=== PATIENT | female | born 2000 | race Caucasian/White ===

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

== ENCOUNTER 2022-01-02 18:58 | Outpatient (CLI) | payer MEDICAID, SELFPAY ==
[2022-01-02 18:05] VITALS: BP 111/52; PULSE 93; TEMP 36.4
--- NOTE | 2022-01-02 21:04 | W.OBNST ---
Date of service: 01/02/22 Time of Service: 19:30 NST Evaluation Reason for NST Reasons for Nonstress Test: OTHER, SEE COMMENT Reason for NST Other: nausea, blurred vision L eye Gestational Age Gestational Age in Weeks and Days: 33 Weeks and 3Days Test and Monitor Explained Test/Monitor Explained: Patient Verbalized Understanding Vital Signs Blood Pressure: 111/52 Pulse: 93 Temperature: 97.5 F Urine Results Urine Protein: Negative Urine Ketones: Positive Urine Glucose: Negative Urine Blood: Negative NST Information Date on Monitor: 01/02/22 Time on Monitor: 17:46 Date off Monitor: 01/02/22 Time off Monitor: 18:50 Total Time on Monitor: 64 NST Interventions: PO Hydration and Notify Provider NST Evaluation Patient States Movement: Present FHR Baseline: 120 Variability: Moderate 6-25 bpm Accelerations: 15x15 Decelerations: None NST Results: Reactive Note NST Note Note: NST is reactive and reassuring. Patient was encouraged by nursing to increase PO hydration and eat small frequent meals. Will keep next office appointment. NST Reviewed and Verified by: Laura Obando
[2022-01-02 21:05] VITALS: BP 111/52; PULSE 93; TEMP 36.4
== END 2022-01-02 19:26 | disposition home or self-care (01) ==
LOC: BCD 18:58 → OBS 19:24
PROVIDERS: PCP Pediatrics; Visit Provider Advanced Practice Midwife
DX: O99.893 Other specified diseases and conditions complicating puerperium (principal); R11.0 Nausea; H53.8 Other visual disturbances; Z3A.33 33 weeks gestation of pregnancy
CPT/HCPCS: 59025

== ENCOUNTER 2022-01-02 20:30 | Outpatient (CLI) | payer MEDICAID, SELFPAY ==
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
[2022-01-02] MEDS: Lactated Ringers 1,000 ML 1000 ML IV (21:30)
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
== END 2022-01-02 22:40 | disposition home or self-care (01) ==
LOC: BCD 20:35 → OBS 20:59
PROVIDERS: PCP Pediatrics; Visit Provider Advanced Practice Midwife
DX: O47.02 False labor before 37 completed weeks of gestation, second trimester (principal)
CPT/HCPCS: 96365

== ENCOUNTER 2022-01-07 13:07 | Outpatient (CLI) | payer MEDICAID, SELFPAY | END 2022-01-07 13:08 | disposition home or self-care (01) | PROVIDERS: PCP Pediatrics; Visit Provider Advanced Practice Midwife ==

== ENCOUNTER 2022-01-08 15:35 | Outpatient (CLI) | payer MEDICAID, SELFPAY ==
[2022-01-08 16:06] VITALS: BP 103/51; PULSE 90; TEMP 36.6
[2022-01-08 16:22] VITALS: BP 103/51; PULSE 90
--- NOTE | 2022-01-08 17:17 | PDOC.NST_ITS ---
Date of service: 01/08/22 Time of Service: 17:17 NST Evaluation Reason for NST Reasons for Nonstress Test: OTHER, SEE COMMENT Reason for NST Other: Fell on 01/06/22; having pain at umbilicus Gestational Age Gestational Age in Weeks and Days: 34 Weeks and 4Days Test and Monitor Explained Test/Monitor Explained: Test Explained and Monitor Explained Vital Signs Blood Pressure: 103/51 Pulse: 90 Temperature: 97.9 F Urine Results Urine Protein: Positive Urine Ketones: Negative Urine Glucose: Negative Urine Blood: Negative NST Information Date on Monitor: 01/08/22 Time on Monitor: 16:03 Date off Monitor: 01/08/22 Time off Monitor: 16:40 Total Time on Monitor: 37 NST Interventions: PO Hydration NST Evaluation Patient States Movement: Present FHR Baseline: 135 Variability: Moderate 6-25 bpm Accelerations: 15x15 Decelerations: None NST Results: Reactive Note NST Note Note: Nazanin called and reported christa-umbilical pain. She also rep[orted that she fell this morning and landed on her hip. The christa-umbilical area has been hurting since the fall. reactive NST. Mild uterine irritability noted which is unrelated to the christa-umbilical discomfort. The umbilical area is sensitive to light touch and Nazanin describes it as a tearing sensation. We discussed the separation of the diastasis rectus and an abdominal support belt was recommended. An abdominal binder was provided today and Nazanin said that her umbilicus felt better with the binder on. i also suggested ice and rest PRN at home. She will follow up at [facility]. NST Reviewed and Verified by: Laura Howell
[2022-01-08 17:21] VITALS: BP 103/51; PULSE 90; TEMP 36.6
== END 2022-01-08 17:05 | disposition home or self-care (01) ==
LOC: BCD 15:36 → OBS 16:03
PROVIDERS: PCP Pediatrics; Visit Provider Advanced Practice Midwife
DX: O26.893 Other specified pregnancy related conditions, third trimester (principal); R10.33 Periumbilical pain; Z91.81 History of falling
CPT/HCPCS: 59025

== ENCOUNTER 2022-01-15 17:57 | Outpatient (CLI) | payer MEDICAID, SELFPAY ==
[2022-01-15 18:14] VITALS: BP 117/59; PULSE 81; TEMP 36.5
[2022-01-15 18:27] VITALS: BP 117/59; PULSE 81
--- NOTE | 2022-01-15 18:58 | W.OBNST ---
Date of service: 01/15/22 Time of Service: 18:58 NST Evaluation Reason for NST Reasons for Nonstress Test: OTHER, SEE COMMENT Reason for NST Other: ? Rupture of Membranes Gestational Age Gestational Age in Weeks and Days: 35 Weeks and 2Days Test and Monitor Explained Test/Monitor Explained: Test Explained and Monitor Explained Vital Signs Blood Pressure: 117/59 Pulse: 81 Temperature: 97.7 F Urine Results Urine Protein: Negative Urine Ketones: Negative Urine Glucose: Negative Urine Blood: Negative NST Information Date on Monitor: 01/15/22 Time on Monitor: 18:13 Date off Monitor: 01/15/22 Time off Monitor: 19:15 Total Time on Monitor: 62 NST Interventions: PO Hydration Contraction Frequency: irreg, infrequent NST Evaluation Patient States Movement: Present FHR Baseline: 140 Variability: Moderate 6-25 bpm Accelerations: 15x15 Decelerations: None NST Results: Reactive Note NST Note Note: cvx closed, intact membranes, UA neg NST Reviewed and Verified by: Mitzi Raya
[2022-01-15 19:00] VITALS: BP 117/59; PULSE 81; TEMP 36.5
[2022-01-15 19:05] LABS: ROM Plus Negative
== END 2022-01-15 19:15 | disposition home or self-care (01) ==
LOC: BCD 18:03 → OBS 18:09
PROVIDERS: PCP Pediatrics; Visit Provider Advanced Practice Midwife
DX: O26.893 Other specified pregnancy related conditions, third trimester (principal); Z3A.35 35 weeks gestation of pregnancy
CPT/HCPCS: 59025; 84112

== ENCOUNTER 2022-01-20 18:43 | Outpatient (REF) | payer MEDICAID, SELFPAY ==
[2022-01-20 19:20] LABS: *AMPHETAMINES SCREEN URINE Negative (Negative); *BARBITURATES SCREEN URINE Negative (Negative); *BENZODIAZEPINES SCREEN URINE Negative (Negative); Cannabinoids THC Negative (Negative); Cocaine Screen,Urine Negative (Negative); METHADONE URINE SCREEN Negative (Negative); OPIATES URINE SCREEN Negative (Negative)
[2022-01-20 19:22] LABS: Tricyclic Antidepressants Negative (Negative)
[2022-01-27 12:32] LABS: Buprenorphine Negative ng/mL (Cutoff: 5.0)
== END 2022-01-20 18:44 | disposition home or self-care (01) ==
LOC: LBN 18:43
PROVIDERS: PCP Pediatrics; Visit Provider Advanced Practice Midwife
DX: Z34.93 Encounter for supervision of normal pregnancy, unspecified, third trimester (principal)
CPT/HCPCS: 80307; 80348; 87081

== ENCOUNTER 2022-01-23 19:26 | Outpatient (CLI) | payer MEDICAID, SELFPAY ==
[2022-01-23 19:39] VITALS: BP 121/65; PULSE 85; TEMP 36.5
[2022-01-23 19:45] VITALS: BP 121/65; PULSE 85
[2022-01-23 20:01] VITALS: BP 121/65; PULSE 85
--- NOTE | 2022-01-24 07:00 | W.OBNST ---
Date of service: 01/23/22 Time of Service: 21:00 NST Evaluation Reason for NST Reasons for Nonstress Test: OTHER, SEE COMMENT Reason for NST Other: headache and blurry vison Gestational Age Gestational Age in Weeks and Days: 36 Weeks and 3Days Test and Monitor Explained Test/Monitor Explained: Test Explained, Monitor Explained and Patient Verbalized Understanding Vital Signs Blood Pressure: 121/65 Pulse: 85 Temperature: 97.7 F Urine Results Urine Protein: Negative Urine Ketones: Positive Urine Glucose: Negative Urine Blood: Negative NST Information Date on Monitor: 01/23/22 Time on Monitor: 19:33 Date off Monitor: 01/23/22 Time off Monitor: 20:05 Total Time on Monitor: 32 NST Interventions: None NST Evaluation Patient States Movement: Present FHR Baseline: 120 Variability: Moderate 6-25 bpm Accelerations: 15x15 and Prolonged Decelerations: None NST Results: Reactive Note NST Note NST Reviewed and Verified by: Mitzi Raya
[2022-01-24 07:02] VITALS: BP 121/65; PULSE 85; TEMP 36.5
== END 2022-01-23 20:20 | disposition home or self-care (01) ==
LOC: BCD 19:26 → OBS 19:36
PROVIDERS: PCP Pediatrics; Visit Provider Advanced Practice Midwife
DX: O26.893 Other specified pregnancy related conditions, third trimester (principal); Z3A.36 36 weeks gestation of pregnancy; R51.9 Headache, unspecified; H53.8 Other visual disturbances
CPT/HCPCS: 59025

== ENCOUNTER 2022-01-26 16:13 | Outpatient (CLI) | payer MEDICAID, SELFPAY ==
--- NOTE | 2022-01-26 16:20 | PDOC.ANES ---
Date of service: 01/26/22 Time of Service: 16:21 Anesthesia Note Report Anesthesia Note: Met with patient during scheduled visit to discuss/answer questions regarding epidural at the request of the CNM team. Discussed the process of requesting an epidural, expected timeframe from request to placement, and the basic steps involved in epidural placement during labor. The patient and her partner verbalized understanding. All questions were answered and patient was encouraged to reach out with any additional questions that may arise. Lumbar back was palpated, no concerns.
[2022-01-26 16:40] VITALS: BP 120/57; PULSE 77
[2022-01-26 17:15] VITALS: BP 120/57; PULSE 77; TEMP 36.8
--- NOTE | 2022-01-26 23:50 | W.OBNST ---
Date of service: 01/26/22 Time of Service: 16:45 NST Evaluation Reason for NST Reasons for Nonstress Test: DECREASED MOVEMENT Gestational Age Gestational Age in Weeks and Days: 36 Weeks and 6Days Test and Monitor Explained Test/Monitor Explained: Test Explained, Monitor Explained and Patient Verbalized Understanding Vital Signs Blood Pressure: 120/57 Pulse: 77 Temperature: 98.2 F NST Information Date on Monitor: 01/26/22 Time on Monitor: 16:24 Date off Monitor: 01/26/22 Time off Monitor: 17:05 Total Time on Monitor: 41 NST Interventions: PO Hydration Contraction Frequency: Q2 NST Evaluation Patient States Movement: Present FHR Baseline: 135 Variability: Moderate 6-25 bpm Accelerations: 15x15 Decelerations: None NST Results: Reactive Note NST Note Note: NST is reactive and reassuring. Continue present management. NST Reviewed and Verified by: Laura Obando
[2022-01-26 23:51] VITALS: BP 120/57; PULSE 77; TEMP 36.8
== END 2022-01-26 17:18 | disposition home or self-care (01) ==
LOC: BCD 16:14 → OBS 16:16
PROVIDERS: PCP Pediatrics; Visit Provider Advanced Practice Midwife
DX: O36.8131 Decreased fetal movements, third trimester, fetus 1 (principal); Z3A.36 36 weeks gestation of pregnancy
CPT/HCPCS: 59025

== ENCOUNTER 2022-01-27 17:17 | Outpatient (CLI) | payer MEDICAID, SELFPAY ==
[2022-01-27 17:36] VITALS: BP 121/65; PULSE 80; TEMP 36.9
[2022-01-27 17:56] VITALS: BP 121/65; PULSE 80
--- NOTE | 2022-01-28 09:11 | W.OBNST ---
Date of service: 01/27/22 Time of Service: 19:00 NST Evaluation Reason for NST Reasons for Nonstress Test: DECREASED MOVEMENT Gestational Age Gestational Age in Weeks and Days: 37 Weeks and 0Days Test and Monitor Explained Test/Monitor Explained: Test Explained and Monitor Explained Vital Signs Blood Pressure: 121/65 Pulse: 80 Temperature: 98.4 F Urine Results Urine Protein: Negative Urine Ketones: Negative Urine Glucose: Negative Urine Blood: Negative NST Information Date on Monitor: 01/27/22 Time on Monitor: 17:36 Date off Monitor: 01/27/22 Time off Monitor: 18:10 Total Time on Monitor: 34 NST Interventions: PO Hydration Contraction Frequency: 2-5 min NST Evaluation Patient States Movement: Absent Variability: Moderate 6-25 bpm Accelerations: 15x15 Decelerations: None NST Results: Reactive Note NST Note Note: Nazanin continues to report decreased movement. She has been monitoring it today and she called and reported that she felt movement 2-3 times this morning but did not feel it after that. She is experiencing back pain. reactive NST, mild, irregular contractions noted felt by Nazanin as mild back pain. Signs of labor and normal movement reviewed. NST Reviewed and Verified by: Laura Howell
[2022-01-28 09:13] VITALS: BP 121/65; PULSE 80; TEMP 36.9
== END 2022-01-27 18:15 | disposition home or self-care (01) ==
LOC: BCD 17:18 → OBS 17:32
PROVIDERS: PCP Pediatrics; Visit Provider Advanced Practice Midwife
DX: O36.8131 Decreased fetal movements, third trimester, fetus 1 (principal); Z3A.37 37 weeks gestation of pregnancy
CPT/HCPCS: 59025

== ENCOUNTER 2022-02-02 15:48 | Outpatient (CLI) | payer MEDICAID, SELFPAY ==
[2022-02-02 16:02] VITALS: BP 111/70; PULSE 83; TEMP 36.8
[2022-02-02 16:46] LABS: ROM Plus Negative
--- NOTE | 2022-02-02 19:19 | W.OBNST ---
Date of service: 02/02/22 Time of Service: 19:19 NST Evaluation Reason for NST Reasons for Nonstress Test: OTHER, SEE COMMENT Reason for NST Other: bleeding and leaking fluid Gestational Age Gestational Age in Weeks and Days: 37 Weeks and 6Days Test and Monitor Explained Test/Monitor Explained: Test Explained, Monitor Explained and Patient Verbalized Understanding Vital Signs Blood Pressure: 111/70 Pulse: 83 Temperature: 98.2 F NST Information Date on Monitor: 02/02/22 Time on Monitor: 15:56 Date off Monitor: 02/02/22 Time off Monitor: 16:45 Total Time on Monitor: 49 NST Interventions: PO Hydration NST Evaluation Patient States Movement: Present FHR Baseline: 145 Variability: Moderate 6-25 bpm Accelerations: 15x15 Decelerations: None NST Results: Reactive Note NST Note Note: Nazanin came in with complaint of cramping, decreased movement and leaking fluid. Reactive NST and Nazanin reported feeling movement. ROM plus taken and negative. Neg pooling. Signs of labor reviewed by Chata Obando CNM NST Reviewed and Verified by: Laura Howell
[2022-02-02 19:21] VITALS: BP 111/70; PULSE 83; TEMP 36.8
== END 2022-02-02 16:50 | disposition home or self-care (01) ==
LOC: BCD 15:49 → OBS 16:01
PROVIDERS: PCP Pediatrics; Visit Provider Advanced Practice Midwife
DX: O36.8130 Decreased fetal movements, third trimester, not applicable or unspecified (principal); O26.893 Other specified pregnancy related conditions, third trimester; Z3A.37 37 weeks gestation of pregnancy
CPT/HCPCS: 59025; 84112

== ENCOUNTER 2022-02-05 17:27 | Inpatient (IN) | payer MEDICAID, SELFPAY ==
[2022-02-05 15:49] VITALS: BP 110/67; PULSE 78; TEMP 37.1
[2022-02-05 15:51] VITALS: BP 110/67; PULSE 78
--- NOTE | 2022-02-05 16:30 | W.OBNST ---
Date of service: 02/05/22 Time of Service: 16:30 NST Evaluation Reason for NST Reasons for Nonstress Test: OTHER, SEE COMMENT Reason for NST Other: Discharge Gestational Age Gestational Age in Weeks and Days: 38 Weeks and 2Days Test and Monitor Explained Test/Monitor Explained: Test Explained, Monitor Explained and Patient Verbalized Understanding Vital Signs Blood Pressure: 110/67 Pulse: 78 Temperature: 98.7 F Urine Results Urine Protein: Negative Urine Ketones: Negative Urine Glucose: Negative Urine Blood: Negative NST Information Date on Monitor: 02/05/22 Time on Monitor: 15:49 Date off Monitor: 02/05/22 Time off Monitor: 16:20 Total Time on Monitor: 31 NST Interventions: PO Hydration Contraction Frequency: mild irregular NST Evaluation Patient States Movement: Present FHR Baseline: 130 Variability: Moderate 6-25 bpm Accelerations: 15x15 Decelerations: None NST Results: Reactive Note NST Note Note: Cvx exam: 1/80% posterior, firm, vtx -4, intact membranes Vaginal mucous clumpy white, will treat for yeast Pt appears comfortable, calm, conversational Discharge to home, f/up as scheduled. NST Reviewed and Verified by: Mitzi Raya
[2022-02-05 16:32] VITALS: BP 110/67; PULSE 78; TEMP 37.1
[2022-02-05 17:18] LABS: ROM Plus Positive
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
[2022-02-05 17:47] LABS: Source Nasal/Nares
[2022-02-05 17:51] LABS: HGB 12.2 g/dL (11.2-15.7); MCH 29.8 pg (27.0-33.0); MCV 90 fL (80-95); MPV 8.7 fL (8.0-11.0); Platelet Count 282 10^3/uL (130-400); RDW 13.2 % (11.7-14.6); RDW-SD 42.9 fL; WBC 11.18 10^3/uL (4.4-10.8)
[2022-02-05 17:54] VITALS: BP 116/66; PULSE 80; RESP 16; TEMP 36.9
[2022-02-05 18:22] LABS: COVID-19 PCR Negative (Negative)
[2022-02-05] MEDS: Zolpidem 5 MG TAB PO (20:16)
[2022-02-05] MEDS: Docusate Sodium 100 MG CAP PO (20:16)
[2022-02-06] VITALS (177 sets, daily range): BP systolic 112–131; BP diastolic 56–84; PULSE 0–112; RESP 16–84; TEMP 36.3–37.1; O2SAT 97–98; BMI 34.3
--- NOTE | 2022-02-06 06:47 | W.PM.OBNL1 ---
Date of service: 02/06/22 Time of Service: 06:47 Informed Consent Informed Consent: Induction of Labor (start with cervical ripening before pitocin infusion) and Risk,Benefits,Alternatives Discussed Pelvic Exam Dilation: 1 Effacement (%): 80 station: -4 Position: LOP Cervix Position: posterior Consistency: medium Contractions Monitor Mode: External Contraction Frequency(min): 4-6 Contraction Duration(sec): 40-50 Intensity: Mild Fetus A Monitor: External (US) Heart Rate Baseline: 135 Presentation: Cephalic Variability: Moderate (6-25 BPM) Categories: Category I Accelerations: 15 X 15 Decelerations: None Amniotic Membrane Status: Ruptured Assessment and Plan Assessment and plan (1) PROM (premature rupture of membranes): Status: Acute Assessment and plan: A: G1, PROM x14 hrs, no labor, category 1 tracing GBS neg, clear fluid, EFW 3500 gms P: Unfavorable cvx, will give miso per guidelines Plan pitocin induction today Anticipate tonight/tomorrow Dr. Quiroz available for consultation Objective Abnormal lab results 02/05/22 Range/Units 17:40 WBC 11.18 H (4.4-10.8) 10^3/uL Temp Pulse Resp BP 97.8 F 80 18 126/60 02/06/22 03:54 02/06/22 03:54 02/06/22 03:54 02/06/22 03:54 Laboratory Results WBC 11.18 10^3/uL (4.4-10.8) H 02/05/22 17:40 RBC 4.10 10^6/uL (3.93-5.22) 02/05/22 17:40 Hgb 12.2 g/dL (11.2-15.7) 02/05/22 17:40 Hct 37.0 % (36.0-46.0) 02/05/22 17:40 MCV 90 fL (80-95) 02/05/22 17:40 MCH 29.8 pg (27.0-33.0) 02/05/22 17:40 MCHC 33.0 % (32.0-36.0) 02/05/22 17:40 RDW 13.2 % (11.7-14.6) 02/05/22 17:40 Plt Count 282 10^3/uL (130-400) 02/05/22 17:40 MPV 8.7 fL (8.0-11.0) 02/05/22 17:40 Membranes Rupture Positive 02/05/22 16:45 COVID-19 Source Nasal/Nares 02/05/22 17:40 SARS-CoV-2 (PCR) Negative (Negative) 02/05/22 17:40 Patient ABO/Rh O Positive 02/05/22 17:40 Antibody Screen NEGATIVE 02/05/22 17:40 Vital Signs Reviewed: Yes Subjective Patient Reports: No new Complaints Interval history since last seen: Awakened during the night with contractions which eventually subsided, slept reasonably well, comfortable this morning, clear fluid continues to leak out.
[2022-02-06] MEDS: Docusate Sodium 100 MG CAP PO (07:49)
[2022-02-06] MEDS: miSOPROStol 50 MCG TAB PO ×3 (07:49→22:48)
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
--- NOTE | 2022-02-06 11:09 | W.PM.OBNL1 ---
Date of service: 02/06/22 Time of Service: 11:09 Informed Consent Informed Consent: Induction of Labor and Risk,Benefits,Alternatives Discussed Assessment and Plan Assessment and plan (1) PROM (premature rupture of membranes): Status: Acute Assessment and plan: Minor cramping since miso dose given Category 1 tracing, no active labor Reviewed with Dr. Quiroz Will begin pitocin induction @ noon R&B discussed w/pt, questions addressed SURGERY MANAGER in to speak with pt about option of regional anesthesia Objective Vital Signs Reviewed: Yes Objective Narrative Objective Narrative: Pt has tolerated PO intake without trouble Showered, ambulated in room Watching TV, chatting with FOB Appears relaxed and comfortable Normotensive, afebrile Category 1 tracing, PROM x18 hrs Subjective Patient Reports: No new Complaints
[2022-02-06] MEDS: Normal Saline Flush 10 ML SYR IVP (11:20)
[2022-02-06] MEDS: Oxytocin/Normal Saline 30 UNIT/500 ML BAG 2 UNITS IV (12:04)
[2022-02-06] MEDS: Lactated Ringers 1,000 ML 125 ML IV (12:04)
--- NOTE | 2022-02-06 17:40 | PGE_ITS ---
Date of service: 02/06/22 Time of Service: 17:40 Informed Consent Informed Consent: Induction of Labor and Risk,Benefits,Alternatives Discussed Contractions Monitor Mode: External ([place]) Contraction Frequency(min): rare Contraction Duration(sec): 30-40 Intensity: Mild Fetus A Heart Rate Baseline: 135 Presentation: Cephalic Variability: Moderate (6-25 BPM) Categories: Category I Accelerations: 15 X 15 Decelerations: None Amniotic Membrane Status: Ruptured Amniotic Fluid: Clear Assessment and Plan Assessment and plan (1) PROM (premature rupture of membranes): Status: Acute Assessment and plan: A: G1, IOL for PROM x24 hrs, not in labor Category 1 tracing P: Pitocin x6 hours and to 20 u/min without uterine response Will stop pit this evening Plan for repeat misoprostel q4h overnight Resume pitocin induction in the morning Pt & FOB in agreement with plan Dr. Quiroz aware of plan of care CBC in morning Objective Vital Signs Reviewed: Yes Objective Narrative Objective Narrative: Bedside ultrasound done for position = LOP, active, sucking thumb Category 1 tracing with occasional variable decel Tolerates PO intake well, voiding qs, clear fluid continues to drain from introitus periodically Subjective Interval history since last seen: [place] nauseated and tried to nap for awhile, no increase in contractions or discomfort in general, no vomiting. Had another gush of clear fluid from vagina, and felt a pop in her rectal area. Has many questions about how to know if she needs a Cesarian or not and what that would be like. Her partner's mother is here visiting for the evening.
[2022-02-06] MEDS: Zolpidem 5 MG TAB PO (22:48)
[2022-02-07] VITALS (341 sets, daily range): BP systolic 110–146; BP diastolic 56–73; PULSE 0–131; RESP 18; TEMP 36.4–37.2; O2SAT 96–99
[2022-02-07] MEDS: miSOPROStol 50 MCG TAB PO (03:05)
[2022-02-07 07:36] LABS: HCT 35.4 % (36.0-46.0); HGB 11.5 g/dL (11.2-15.7); MCH 29.6 pg (27.0-33.0); MCHC 32.5 % (32.0-36.0); MCV 91 fL (80-95); MPV 8.5 fL (8.0-11.0); Platelet Count 258 10^3/uL (130-400); RBC 3.88 10^6/uL (3.93-5.22); RDW 13.2 % (11.7-14.6); RDW-SD 43.6 fL; WBC 13.16 10^3/uL (4.4-10.8)
--- NOTE | 2022-02-07 08:03 | W.PM.OBNL1 ---
Date of service: 02/07/22 Time of Service: 08:03 Informed Consent Informed Consent: Induction of Labor (R&B of fay cervical balloon discussed, consents to balloon and resuming pitocin infusion this morning.) and Risk,Benefits,Alternatives Discussed Pelvic Exam Dilation: 1.5 Effacement (%): 90 station: -3 Position: LOP Cervix Position: mid Consistency: soft BISHOPS Score(Cervical Ripeness Score): 7 Contractions Monitor Mode: External ([place]) Contraction Frequency(min): irregular, mild, infrequent Intensity: Mild Fetus A Heart Rate Baseline: 135 Variability: Moderate (6-25 BPM) Categories: Category I Accelerations: 15 X 15 Decelerations: None Amniotic Membrane Status: Ruptured Assessment and Plan Assessment and plan (1) PROM (premature rupture of membranes): Status: Acute Assessment and plan: A: IOL in progress for PROM x40 hrs WBC this morning 13.15, Hgb/Hct 11.5/35.4 Remains afebrile, comfortable Category 1 tracing Miso 50 mcg PO given x3 overnight Maria score has advanced from 4 to 7 over last 24 hrs P: Leave fay in place x12 hrs or until extruded Resume Pitocin induction per guidelines Discussed plan if care with Dr. Quiroz Hold ATB unless pt becomes symptomatic Objective Vital Signs Reviewed: Yes Notable Details: normotensive, afebrile Objective Narrative Objective Narrative: Pt consents to fay balloon insertion 30 ml inserted/inflated during vaginal exam without difficulty Pt tolerated procedure well Clear fluid visibly draining from introitus Category 1 tracing Maria score has advanced to 7 Subjective Interval history since last seen: Clear fluid drainage from vagina increased last night at 2200 and continues, pelvis feels sore. Pt reports mild nausea and poor appetite, legs feel very shakey this morning. Did sleep well after taking Ambien.
[2022-02-07] MEDS: Normal Saline Flush 10 ML SYR IVP (08:12)
[2022-02-07] MEDS: Ondansetron 4 MG/2 ML VIAL IVP ×2 (08:13→19:25)
[2022-02-07] MEDS: Oxytocin/Normal Saline 30 UNIT/500 ML BAG 2 UNITS IV (08:18)
[2022-02-07] MEDS: Lactated Ringers 1,000 ML 125 ML IV ×3 (08:20→18:31)
[2022-02-07] MEDS: FentaNYL/ROPIvacaine 2 mcg/ml and 0.1% 200 ML CADD Cassette EP (11:50)
--- NOTE | 2022-02-07 13:54 | W.PM.OBNL1 ---
Date of service: 02/07/22 Time of Service: 12:30 Informed Consent Informed Consent: Induction of Labor (pitocin induction in progress, ), Regional Anesthesia and Risk,Benefits,Alternatives Discussed Pelvic Exam Dilation: 5 Effacement (%): 90 station: -3 Position: LOP Cervix Position: mid Consistency: soft BISHOPS Score(Cervical Ripeness Score): 9 Fetus A Categories: Category I Assessment and Plan Assessment and plan (1) PROM (premature rupture of membranes): Status: Acute Assessment and plan: A: No further cervical ripening indicated Pitocin infusing at 14 u/min Generally category 1 tracing Mild short irregular contractions per [place] monitor PROM approaching 44 hrs, Peds made aware P: Continue pitocin induction Reassess for progress in 3 hrs Comfort measures as pt requests Consider IUPC if no significant dilation or descent Dr. Quiroz inhouse and aware of updates Subjective Interval history since last seen: [place] bulb fell out when ambulating to bathroom, lower abd cramping was uncomfortable and eased by use of nitrous, but she felt better once the bulb was gone.
--- NOTE | 2022-02-07 14:37 | W.PM.OBNL1 ---
Date of service: 02/07/22 Time of Service: 14:42 Informed Consent Informed Consent: Induction of Labor (pitocin induction in progress, ), Regional Anesthesia and Risk,Benefits,Alternatives Discussed Contractions Monitor Mode: External ([place]) Contraction Frequency(min): q2-5 Contraction Duration(sec): 40-60 Intensity: Mild Fetus A Heart Rate Baseline: 140 Variability: Moderate (6-25 BPM) Categories: Category I Accelerations: 15 X 15 Decelerations: None Assessment and Plan Assessment and plan (1) Prolonged spontaneous rupture of membranes: Status: Acute Assessment and plan: Pt requesting epidural anesthesia PLANT FLOOR AUTOMATION MANAGER to pt's room now Will place IUPC when pt comfortable Continue pitocin induction, now @ 20 u/min Objective Vital Signs Reviewed: Yes Objective Narrative Objective Narrative: Afebrile Calm, watching TV, Complaining of lower abd cramps, pelvic soreness, continued fluid draining Subjective Interval history since last seen: tired, uncomfortable, wants an epidural now
[2022-02-07] MEDS: Lactated Ringers 500 ML IV (14:47)
--- NOTE | 2022-02-07 16:29 | ANES.NEUR_ITS ---
Epidural/Spinal Catheter Date Performed: 02/07/22 Procedure Start: 14:35 Procedure Stop: 15:02 Requesting Provider: Mitzi Raya Procedure Location: Obstetrics Reason Performed: Labor Epidural Standard Monitors Applied: Blood Pressure, SpO2 and See EMR for corresponding vital signs Patient Position: Sitting Sedation Given (Indicate Dose Given): No Sedation given Patient Mental Status: Awake Sterility: Hand Hygiene, Surgical Cap, Surgical Mask, Sterile Gloves, Sterile Drape/Sheet and Chlorhexidine Procedure Location: L2-L3 Interspace Epidural Needle: Tuohy 18 Gauge Needle Length: 3.5 Inch Needle Approach: Midline Epidural Procedure: Skin Prepped, Sterile Drape Placed, 1% Lidocaine to skin and subcutaneous tissue with 25G needle, Tuohy Needle placed, ALBINO to Saline Used, Epidural Catheter Placed, Negative Heme, Negative CSF Flow and Tuohy Needle Removed Catheter Placed?: Catheter Placed Test Dose (Indicate Dose Given): 3ml 1.5% Lidocaine with 1:200K Epinephrine Given and Negative Test Dose Loss of Resistance Depth (cm): 5 Catheter depth at skin (cm): 12 Dressing: [place] Dressing Placed, Mastisol Used and Dressing reinforced with Tape Epidural Provid er Bolus (Indicate Dose Given): Total Ropivacaine 0.1% with Fentanyl 2mcg/ml Given from pump. (ml) Dose:: 5ml Additives (Indicate Dose Given ): None Infusion Medication: Medication Infusion Began Medication Infusion: Ropivacaine 0.1% with Fentanyl 2mcg/ml Maintenance Infusion Rate (ml/hour): 10 PCEA Bolus Dose (ml): 5 Post Procedure Pain score (0-10): 0 Block Level: N/A Paresthesia: None Ultrasound: Not Used Number of Attempts (See previous attempts in note section): 1 Procedure Tolerated: No Complications and Patient tolerated well Procedure Outcome: Successful Procedure Comment:: Epidural placed without difficulty. Dosed 5ml's from pump and started infusion. Pt. educated on PCEA button use. All questions answered. Performed By: Dontrell Muhammad
--- NOTE | 2022-02-07 16:45 | W.PM.OBNL1 ---
Date of service: 02/07/22 Time of Service: 16:45 Informed Consent Informed Consent: Induction of Labor (pitocin induction in progress, ), Regional Anesthesia and Risk,Benefits,Alternatives Discussed Pelvic Exam Dilation: 5 Effacement (%): 90 station: -3 Position: LOP Consistency: soft Contractions Monitor Mode: Internal Contraction Frequency(min): 2 minutes Contraction Duration(sec): 60 Intensity: Mild/Moderate IUPC resting tone (mmHg): 20 IUPC peak pressure (mmHg): 40 Fetus A Heart Rate Baseline: 140 Variability: Moderate (6-25 BPM) Categories: Category I Accelerations: Present Decelerations: None Assessment and Plan Assessment and plan (1) Prolonged spontaneous rupture of membranes: Status: Acute Assessment and plan: PROM x 48 hr Pt remains afebrile, FHT with nml baseline Peds aware (2) Slow progress in first stage of labor: Status: Acute Assessment and plan: A: HD#3, IOL for PROM at 38 wks Epidural anesthesia Pitocin @ 20 u/min IUPC inserted without difficulty No cervical change or descent since noon P: Will continue to monitor for labor progress Maternal position changes to encouraged rotation/descent Dr. Quiroz appraised of pt's status (3) Encounter for induction of labor: Status: Acute Assessment and plan: Cervical ripening completed with misoprostel and fay balloon Objective Vital Signs Reviewed: Yes Objective Narrative Objective Narrative: Prior to epidural, pt used ball or in shower, various positions while resting in bed Effective regional anesthesia now, pt pleased with her decision to request one Fay catheter inserted, IUPC placed Pitocin infusion in progress Pt understands there has been little progress since noon today Is encouraged to nap/rest Subjective Interval history since last seen: epidural is effective, pt sleepy and comfortable
--- NOTE | 2022-02-07 20:21 | W.PM.OBNL1 ---
Date of service: 02/07/22 Time of Service: 20:21 Informed Consent Informed Consent: Induction of Labor (pitocin induction in progress, ) and Risk,Benefits,Alternatives Discussed Pelvic Exam Dilation: 6 Effacement (%): 100 station: -2 Cervix Position: mid Consistency: soft Contractions Monitor Mode: Internal Contraction Frequency(min): 1-2 Intensity: Moderate IUPC resting tone (mmHg): 40 IUPC peak pressure (mmHg): 50 Fetus A Heart Rate Baseline: 140 Variability: Moderate (6-25 BPM) Categories: Category I (one episode of prolonged decel (2-3 min), followed by moderate variability and cat 1) Accelerations: 15 X 15 Amniotic Membrane Status: Ruptured Assessment and Plan Assessment and plan (1) Encounter for induction of labor: Status: Acute (2) Slow progress in first stage of labor: Status: Acute Assessment and plan: A: progress to 6/100% LOP -2 with palpable molding of cephalic prominence low grade rise in maternal temp category 1 tracing with one episode of 2-3 min decel, recovered well IUPC in place, MVU's 10 per contraction, ranging 50-70 per 10 minute period Pitocin @ 26 u/min P: Antibiotic Rx for possible chorio Dr. Quiroz consulted for plan of care Will reassess for cervical change & route of delivery in 1 hour (3) Prolonged spontaneous rupture of membranes: Status: Acute Objective Vital Signs Reviewed: Yes Objective Narrative Objective Narrative: Pt's skin feels warm,core temp feels hot during vaginal exam, repeat temp is 99 F per RN Will start Ancef 2 gm q8 hrs per Dr. Quiroz Normotensive, pt comfortable, asking questions about infant care Fluids appear blood tinged, small amt vaginal bleeding noted (show?) Subjective Interval history since last seen: Epidural remains effective, pt unable to sleep though she is comfortable, does feel some type of vaginal pressure. Results Hemoglobin/Hematocrit: Hgb 11.5 g/dL (11.2-15.7) 02/07/22 07:20 Hct 35.4 % (36.0-46.0) L 02/07/22 07:20 Abnormal Lab Findings: Abnormal Labs 02/05/22 02/07/22 17:40 07:20 WBC 11.18 H 13.16 H RBC 3.88 L Hct 35.4 L
[2022-02-07] MEDS: ceFAZolin 1,000 MG VIAL 1000 MG IJ (20:34)
[2022-02-07] MEDS: ceFAZolin 1,000 MG VIAL 1000 MG IVPB (20:55)
--- NOTE | 2022-02-07 22:09 | W.PM.PROGNOT ---
Date of Service Date of service: 02/07/22 Time of Service: 22:09 Assessment and Plan Assessment and plan (1) Prolonged spontaneous rupture of membranes: Status: Acute Assessment and plan: 2g Ancef given 1hr ago for increased temperature and feeling warm (2) Labor abnormality: Status: Acute Assessment and plan: Labor dystocia with inadequate contractions despite >12hrs of pitocin, no descent of the head and arrest of dilation. Proceed with section. Procedure reviewed with pt and partner and consents signed. Team aware. Subjective Subjective Interval history since last seen: Pt has had ROM x22hr. Not having adequate contractions despite high dose pitocin and baby's head not descending. Comfortable with epidural. Exam Narrative Exam Narrative: Comfortable, NAD Objective Last Vital Signs Temp 98.6 F 02/07/22 21:31 Pulse 94 H 02/07/22 22:08 Resp 18 02/07/22 21:31 BP 115/56 L 02/07/22 21:31 Pulse Ox 98 02/07/22 22:08 Laboratory Results - last 24 hr 02/07/22 07:20 WBC 13.16 H RBC 3.88 L Hgb 11.5 Hct 35.4 L MCV 91 MCH 29.6 MCHC 32.5 RDW 13.2 Plt Count 258 MPV 8.5
[2022-02-07] MEDS: AZITHROMYCIN 500 MG in Normal Saline 250 ML 250 MG IVPB (22:31)
[2022-02-07] MEDS: Lactated Ringers 1,000 ML 30 ML IV (22:47)
[2022-02-07] MEDS: Methylergonovine 0.2 MG/ML VIAL (23:23)
[2022-02-07] MEDS: miSOPROStol 100 MCG TAB (23:35)
[2022-02-07] MEDS: Bupivacaine 0.25% Pres-Free 30 ML VIAL (23:51)
[2022-02-08] VITALS (11 sets, daily range): BP systolic 91–130; BP diastolic 46–70; PULSE 90–120; RESP 12–95; TEMP 36.8–39.4; O2SAT 94–99
--- NOTE | 2022-02-08 00:16 | W.PM.OP ---
Date of service: 02/07/22 Time of Service: 23:00 Operative Note Operative Note PRE-OP DIAGNOSIS: Labor dystocia Prolonged rupture of membranes PROCEDURE: PLTCS SURGEON: Shakira Quiroz ASSISTING SURGEON: Jacqueline Arguello Refer to Anesthesia Record ESTIMATED BLOOD LOSS: 1,000 (~500ml of clot passed per vagina) COMPLICATIONS: None Patient was transported to: floor Patient's condition: stable Indications: P0 @38.4wks with PROM. Attempted induction of labor with misoprostol, balloon catheter and pitocin for >24hrs. She never achieved adequate contractions and the head did not descend. The cervix was arrested at 6cm for >2hrs and had been 5cm for a long time prior to that. Findings: Normal appearing uterus, ovaries and tubes. Male infant. Procedure Description: After informed consent was signed the patient was taken to the operating room. She was given spinal anesthesia, SCDs were placed on her legs and a fay catheter was already in her bladder. The heart rate was checked and was normal. She underwent abdominal and vaginal prep and was draped in the dorsal supine position with a leftward tilt. The patient was tested and spinal anesthesia was found to be adequate. A time out was performed. The skin was injected with bupivocaine along the length of the planned incision.A skin incision was made with the scalpel and carried down to the underlying layer of fascia with blunt dissection. The fascia was incised on either side of the midline and the fascial incision extended laterally with a combination of sharp and blunt dissection. The inferior edge of the fascia was grasped with shana clamps and tented up and dissected down with a combination of sharp and blunt dissection. Then the superior edge of the fascial incision was grasped with shana clamps and tented up and dissected down with a combination of sharp and blunt dissection. The rectus muscles were in the midline and the peritoneum was entered bluntly. The peritoneal incision was extended laterally with blunt dissection. The bladder blade was inserted. A transverse incision was made in the lower uterine segment with the scalpel. The incision was extended superiorly and inferiorly with blunt pressure. The infants head delivered with fundal pressure followed by the shoulders and the rest of the body. The cord was milked toward the baby and after 1min it was clamped x2 and cut. The baby was handed to the supervisor tile and mottle. Cord blood was collected. The placenta delivered with fundal massage and gentle cord traction and appeared to be intact. The uterus was exteriorized and cleared of clots and debris. The uterine incision was closed with 0-vicryl in a running locked fashion with a second layer of suture imbricating the first. Good hemostasis was noted along the incision. However the uterus was very boggy. The patient was given methergine, bucal misoprostol and 20U IM pitocin into the uterus along with uterine massage. Clots were expressed vaginally. This resulted in improved uterine tone. The uterus was placed back into the abdominal cavity. Clots were cleared from the peritoneal cavity with lap sponges. The incision was inspected once again and good hemostasis was noted. There was good hemostasis of the rectus muscles. The fascia was closed with 0-vicryl in a running unlocked fashion. The subcuticular layer was irrigated and closed with interrupted sutures of 3-0 vicryl. The skin was closed with 4-0 vicryl in a running subcuticular fashion. The incision was cleaned. Mastisol and steristrips were placed. A dressing was placed. The fundus was palpated to be firm and below the umbilicus. The patient was moved to the stretcher and taken to the recovery room in stable condition.
[2022-02-08] MEDS: Ondansetron 4 MG/2 ML VIAL IVP (01:00)
[2022-02-08] MEDS: Tranexamic Acid 1,000 MG/10 ML VIAL 1000 MG IVP (01:06)
[2022-02-08] MEDS: Oxytocin/Normal Saline 30 UNIT/500 ML BAG 95 UNITS IV (01:26)
[2022-02-08 02:28] LABS: Abs Immature Grans 0.17 10^3/uL (0.0-0.06); Absolute Basophil Count 0.04 10^3/uL (0.0-0.2); Absolute Lymphocyte Count 1.33 10^3/uL (1.2-3.4); Basophils % 0.2; HCT 25.6 % (36.0-46.0); HGB 8.8 g/dL (11.2-15.7); Immature Grans % 0.8; MCH 30.7 pg (27.0-33.0); MCHC 34.4 % (32.0-36.0); MCV 89 fL (80-95); MPV 8.5 fL (8.0-11.0); Monocytes % 5.6; Neutrophils % 87.4; Platelet Count 225 10^3/uL (130-400); RBC 2.87 10^6/uL (3.93-5.22); RDW 13.2 % (11.7-14.6); RDW-SD 43.4 fL; WBC 22.24 10^3/uL (4.4-10.8)
[2022-02-08] MEDS: Loperamide 2 MG CAP 4 MG PO (02:28)
[2022-02-08 02:29] LABS: Absolute Monocyte Count 1.25 10^3/uL (0.1-0.8); Absolute Neutrophil Count 19.44 10^3/uL (1.2-6.7)
[2022-02-08] MEDS: Oxytocin/Normal Saline 30 UNIT/500 ML BAG 333 UNITS IV (02:36)
[2022-02-08] MEDS: Methylergonovine 0.2 MG TAB PO ×5 (04:05→21:57)
[2022-02-08] MEDS: Ketorolac 30 MG/ML VIAL IVP ×2 (04:05→11:19)
--- NOTE | 2022-02-08 11:05 | W.ANESPOSTOP ---
Postoperative Evaluation Date, Time and Location Date Performed: 02/08/22 Time Performed: 11:10 Patient Location: Obstetrics Vital Signs Most Recent Imported Vital Signs: Most Recent Vital Signs Temp Pulse Resp BP Pulse Ox 37.1 C 98 H 12 112/53 L 96 02/08/22 07:30 02/08/22 04:13 02/08/22 07:30 02/08/22 07:30 02/08/22 04:13 Pain Score Most Recent Pain Score: Most Recent Pain Score Pain Level 2 02/08/22 04:05 Assessment Mental Status: Awake (Alert & Oriented to Patient Baseline) Airway and Respiratory Function: Patent airway with normal (patient baseline) respiratory exam Cardiovascular Function: Hemodynamically Stable Hydration Status: Adequately Hydrated Nausea & Vomiting: No Nausea or Vomiting Pain: Pain is tolerable per patient Peripheral Nerve Block: Patient did not receive a nerve block
[2022-02-08] MEDS: Normal Saline Flush 10 ML SYR IVP (11:22)
[2022-02-08] MEDS: oxyCODONE 5 mg/Acetaminophen 325 mg TAB PO ×3 (11:36→21:57)
--- NOTE | 2022-02-08 17:36 | W.PM.OBPNV1 ---
Date of service: 02/08/22 Time of Service: 17:36 Assessment and Plan Assessment and plan (1) care following delivery: Status: Acute Assessment and plan: Doing well POD#1 s/p PCS for arrest disorder. PPH due to uterine atony at time of C section with resolution s/p multiple medications. Bleeding has been stable throughout the day. Plan routine care. Likely d/c on Tue. CNM to do circ tomorrow. Subjective Subjective Interval history: Pain with movement but up and moving well. Tolerating regular diet. No nausea. +flatus. No BM. Minimal bleeding. [place] baby status: Doing well Exam Physical Exam Vital signs: Temp Pulse Resp BP Pulse Ox 98.8 F 98 H 12 112/53 L 96 02/08/22 07:30 02/08/22 04:13 02/08/22 07:30 02/08/22 07:30 02/08/22 04:13 Vital Signs Reviewed: Yes Constitutional Constitutional: no acute distress and cooperative Detailed HEENT Exam Head: Present normocephalic and atraumatic Respiratory Exam Respiratory Exam: Normal Abdominal Exam Abdomen: Tender (mildly) Comments: Incision clean, dressing still in place Fundal Exam Fundus: Below Umbilicus and Firm Extremities Exam Extremity Exam: Edema (trace) Detailed Neurological Exam Neurological: Present alert, oriented X3 and CN II-XII intact Results Hemoglobin/Hematocrit: Hgb 8.8 g/dL (11.2-15.7) L D 02/08/22 02:20 Hct 25.6 % (36.0-46.0) L 02/08/22 02:20 Abnormal Lab Findings: Abnormal Labs 02/05/22 02/07/22 02/08/22 17:40 07:20 02:20 WBC 11.18 H 13.16 H 22.24 H RBC 3.88 L 2.87 L Hgb 8.8 L D Hct 35.4 L 25.6 L Absolute Neutrophils 19.44 H Absolute Monocytes 1.25 H
[2022-02-08] MEDS: Ibuprofen 600 MG TAB PO (17:39)
[2022-02-09 00:30] VITALS: BP 109/78; PULSE 94; RESP 18; TEMP 36.8; O2SAT 100
[2022-02-09] MEDS: Ibuprofen 600 MG TAB PO ×3 (00:30→20:46)
[2022-02-09] MEDS: oxyCODONE 5 mg/Acetaminophen 325 mg TAB PO ×4 (02:13→16:12)
[2022-02-09 04:03] VITALS: RESP 16
[2022-02-09 07:30] VITALS: BP 106/64; PULSE 93; RESP 18; TEMP 36.3
--- NOTE | 2022-02-09 10:12 | OBPPV_ITS ---
Date of service: 02/09/22 Time of Service: 10:12 Assessment and Plan Assessment and plan (1) care following delivery: Status: Acute Assessment and plan: POD 2. Pt's pain well controlled at this time with Percocet and Ibuprofen. latching well this morning. Will plan to follow today and see if discharge to home today or tomorrow planned. (2) Hx of section: Status: Acute Assessment and plan: satisfactory recovery. Anticipate discharge home with today or tomorrow. Subjective Subjective Interval history: POD2 unscheduled primary c/s. Pain controlled with Percocet and Ibuprofen. Patient comments: Pain well controlled and Tolerating diet Patient's Mood: good. baby status: Doing well, Nursing well, Rooming in and Strong Bonding Observed [place] feeding status: Exclusively breast feeding Exam Physical Exam Vital signs: Temp Pulse Resp BP Pulse Ox 98.3 F 94 H 16 109/78 100 02/09/22 00:30 02/09/22 00:30 02/09/22 04:03 02/09/22 00:30 02/09/22 00:30 Vital Signs Reviewed: Yes Constitutional Constitutional: no acute distress HEENT Exam HEENT Exam: Normal Neck Exam Neck Exam: Normal Respiratory Exam Respiratory Exam: Normal Cardiovascular Exam Cardiovascular Exam: Normal Abdominal Exam Abdomen: Tender (mild focal fundal tenderness.) Comments: Incision clean dry and intact. Steristrips in place. Fundal Exam Fundus: Below Umbilicus Rectal Exam Rectal Exam: Not Done Extremities Exam Extremity Exam: Normal and Full ROM Back/Spine/Pelvis Exam Back Exam: Normal Skin Exam Skin Exam: Normal Neurological Exam Neurological Exam: Normal Psychiatric Exam Psychiatric Exam: Normal Results Hemoglobin/Hematocrit: Hgb 8.8 g/dL (11.2-15.7) L D 02/08/22 02:20 Hct 25.6 % (36.0-46.0) L 02/08/22 02:20 Abnormal Lab Findings: Abnormal Labs 02/05/22 02/07/22 02/08/22 17:40 07:20 02:20 WBC 11.18 H 13.16 H 22.24 H RBC 3.88 L 2.87 L Hgb 8.8 L D Hct 35.4 L 25.6 L Absolute Neutrophils 19.44 H Absolute Monocytes 1.25 H
[2022-02-09] MEDS: Docusate Sodium 100 MG CAP PO (10:58)
[2022-02-09 20:08] VITALS: BP 128/70; PULSE 80; RESP 18; TEMP 36.7
[2022-02-09] MEDS: Acetaminophen 325 MG TAB 650 MG PO (20:46)
[2022-02-10] MEDS: oxyCODONE 5 mg/Acetaminophen 325 mg TAB PO ×3 (00:18→14:01)
[2022-02-10 01:35] VITALS: BP 107/56; PULSE 96; RESP 16; TEMP 36.8; O2SAT 100
[2022-02-10 04:46] VITALS: BP 90/53; PULSE 88; RESP 16; TEMP 36.3
--- NOTE | 2022-02-10 07:46 | W.PM.OBPNV1 ---
Date of service: 02/10/22 Time of Service: 07:46 Assessment and Plan Assessment and plan (1) Hx of section: Status: Acute Assessment and plan: Postoperative day #3 status post primary low transverse section for labor arrest. Overall doing well. Discharge home today. Instructions given. Subjective Subjective Interval history: Patient seen and examined this morning. Doing well. Breast-feeding without difficulty. Pain is well controlled. Discharge home today. Patient's Mood: Appropriate [place] baby status: Doing well and Nursing well Exam Physical Exam Vital signs: Temp Pulse Resp BP Pulse Ox 97.3 F L 88 16 90/53 L 100 02/10/22 04:46 02/10/22 04:46 02/10/22 04:46 02/10/22 04:46 02/10/22 01:35 Vital Signs Reviewed: Yes Constitutional Constitutional: no acute distress HEENT Exam HEENT Exam: Normal Neck Exam Neck Exam: Normal Respiratory Exam Respiratory Exam: Normal Cardiovascular Exam Cardiovascular Exam: Normal Abdominal Exam Comments: Incision clean dry and intact. Abdomen is soft and nontender Fundal Exam Fundus: Below Umbilicus and Firm Extremities Exam Extremity Exam: Normal; negative Calf Tenderness Skin Exam Skin Exam: Normal Neurological Exam Neurological Exam: Normal Psychiatric Exam Psychiatric Exam: Normal Results Hemoglobin/Hematocrit: Hgb 8.8 g/dL (11.2-15.7) L D 02/08/22 02:20 Hct 25.6 % (36.0-46.0) L 02/08/22 02:20 Abnormal Lab Findings: Abnormal Labs 02/05/22 02/07/22 02/08/22 17:40 07:20 02:20 WBC 11.18 H 13.16 H 22.24 H RBC 3.88 L 2.87 L Hgb 8.8 L D Hct 35.4 L 25.6 L Absolute Neutrophils 19.44 H Absolute Monocytes 1.25 H
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
[2022-02-10 08:30] VITALS: BP 105/66; PULSE 101; RESP 18; TEMP 36.7; O2SAT 99
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
[2022-02-10] MEDS: Ibuprofen 600 MG TAB PO (08:51)
[2022-02-10] MEDS: Acetaminophen 325 MG TAB 650 MG PO (11:47)
[2022-02-10 14:15] VITALS: BP 131/74; PULSE 93; RESP 16; TEMP 36.4
[2022-02-10] MEDS: Varicella Virus Vaccine (Live) 0.5 ML SC (14:45)
== END 2022-02-10 15:10 | disposition home or self-care (01) | DRG 787 ==
LOC: BCD 17:52 → OBS 17:52
PROVIDERS: Obstetrics & Gynecology; Admitting Provider Advanced Practice Midwife; PCP Pediatrics; Visit Provider Advanced Practice Midwife
PROC: 10D00Z1 Extraction of Products of Conception, Low, Open Approach (ICD-10-PCS; CPT 59514; principal; 2022-02-07 11:50)
DX: O42.12 Full-term premature rupture of membranes, onset of labor more than 24 hours following rupture; O72.1 Other immediate postpartum hemorrhage; O75.2 Pyrexia during labor, not elsewhere classified; Z37.0 Single live birth; Z3A.38 38 weeks gestation of pregnancy; O62.1 Secondary uterine inertia; O99.52 Diseases of the respiratory system complicating childbirth; O99.344 Other mental disorders complicating childbirth; J45.909 Unspecified asthma, uncomplicated; F90.9 Attention-deficit hyperactivity disorder, unspecified type; F89 Unspecified disorder of psychological development; Z20.822 Contact with and (suspected) exposure to COVID-19
CPT/HCPCS: 59514; 36415; 36430; 80053; 81240; 81241; 82784; 84112; 85027; 85300; 85303; 85306; 85610; 85613; 85730; 85732; 86850; 86900; 86901; 86920; 87635; 96360; 96361; 96365; 96366; 96374; 99285; 59025; 74177; 81003; 81015; 85025; 85240; 85379; 87086; J0456; J0690; J1200; J1580; J1885; J2210; J2370; J2405; J2590; J3010; P9016

== ENCOUNTER 2022-02-11 12:04 | Inpatient (IN) | payer MEDICAID, SELFPAY ==
[2022-02-11] VITALS (9 sets, daily range): BP systolic 112–128; BP diastolic 53–90; PULSE 71–98; RESP 18–20; TEMP 36.6–37; O2SAT 97–100
[2022-02-11 13:06] LABS: Abs Immature Grans 0.12 10^3/uL (0.0-0.06); Absolute Basophil Count 0.03 10^3/uL (0.0-0.2); Absolute Eosinophil Count 0.28 10^3/uL (0.0-0.7); Absolute Monocyte Count 0.34 10^3/uL (0.1-0.8); Absolute Neutrophil Count 6.89 10^3/uL (1.2-6.7); Basophils % 0.3; Immature Grans % 1.3; MCH 29.9 pg (27.0-33.0); MCHC 32.2 % (32.0-36.0); MCV 93 fL (80-95); MPV 8.1 fL (8.0-11.0); Monocytes % 3.6; Neutrophils % 72.8; Nucleated RBC 0.2 % (0.0-0.3); Platelet Count 305 10^3/uL (130-400); RBC 1.94 10^6/uL (3.93-5.22); RDW 13.5 % (11.7-14.6); RDW-SD 45.6 fL; WBC 9.46 10^3/uL (4.4-10.8)
[2022-02-11 13:09] LABS: HGB 5.8 g/dL (11.2-15.7)
--- NOTE | 2022-02-11 13:15 | DI.CT_ITS ---
Exam(s) CT ABDOMEN PELVIS W EXAM: CT ABDOMEN PELVIS W INDICATION: post with vaginal bleeding and pain. COMPARISON: No exams were available for comparison TECHNIQUE: FINDINGS: CT examination of the abdomen and pelvis was performed with intravenous infusion of 100 cc of Omnipaq ue 350. Images obtained through the lung bases are unremarkable. There is small quantity of gas in the anterior abdominal wall consistent with recent . The liver is unremarkable in appearance. Gallbladder and bile ducts are CT normal. Pancreas appears normal. Spleen is unremarkable in appearance. Adrenals appear normal. Note is made of moderate right hydronephrosis, presumably related to hydronephrosis of in a patient who is had a recent . Left kidney is unremarkable in appearance. Urinary bladder grossly unremarkable except for trace quantity gas which is nonspecific, please correlate with any re cent catheterization... Abdominal aorta is of normal diameter and no major vascular abnormality is seen. No abdominal wall hernia. No abdominal or pelvic adenopathy. The endometrial cavity contains poorly defined heterogeneous material and numerous gas bubbles, the p ossibility of endometritis would have to be raised although there is overlap between normal post C-se ction appearance and endometritis with gas producing organism, please correlate with lab values and c linical appearance period. Appendix is normal. No evidence of diverticulitis or bowel obstruction. IMPRESSION: Moderate right hydronephrosis noted, presumably hydronephrosis of . Large quantity of heterogeneous material including significant quantity of gas in the endometrial cav ity, although the findings are nonspecific, the possibility of endometritis is raised, please correla te clinically. Note is also made of trace gas in the urinary bladder. RADIATION DOSE DELIVERED: Total DLP Total DLP RADIATION OPTIMIZATION: All CT scans at this facility use at least one of these dose optimization te chniques: automated exposure control; mA and/or kV adjustment per patient size (includes targeted exa ms where dose is matched to clinical indication); or iterative reconstruction.
[2022-02-11 13:21] LABS: ALT 17 U/L (14-59); AST 23 U/L (15-37); Alkaline Phosphatase 82 U/L (46-116); Anion Gap 7.6 mmol/L (3-11); BUN 9 mg/dL (7-18); Bilirubin, Total 0.2 mg/dL (0.2-1.0); CO2 27.4 mmol/L (21.0-32.0); CREATININE 0.6 mg/dL (0.55-1.02); Calcium 8.1 mg/dL (8.5-10.1); Chloride 108 mmol/L (98-107); Glucose 100 mg/dL (74-106); Potassium 3.5 mmol/L (3.5-5.1); Sodium 143 mmol/L (136-145); Total Protein 5.6 g/dL (6.4-8.2)
[2022-02-11 13:31] LABS: Bilirubin Small (Negative); Blood Large (Negative); Clarity Cloudy (Clear); Glucose Negative (Negative); Ketones Trace mg/dL (Negative); Leukocyte Esterase Small (Negative); Nitrite Positive (Negative); Specific Gravity 1.025 (1.005-1.025)
[2022-02-11 13:56] LABS: Bacteria Moderate HPF (Negative); Casts Negative LPF (Negative); Crystals Negative HPF (Negative); Epithelial Cells Negative HPF (Negative); Mucus Negative (Negative); Other Cells Negative (Negative)
[2022-02-11 13:57] LABS: C & S Indicated? Yes; RBC >50 HPF (0-2)
[2022-02-11] MEDS: Omnipaque 350 MG/ML 500 ML BTL-Imaging package IJ (15:09)
[2022-02-11] MEDS: Normal Saline Flush 10 ML SYR IVP (15:10)
[2022-02-11] MEDS: Normal Saline - Diluent 50 ML VIAL IV (15:10)
--- NOTE | 2022-02-11 15:12 | SUR.PHASEI ---
stopped blood per provider order for patient to be taken to CT
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
[2022-02-11 15:53] LABS: Source Nasal/Nares
[2022-02-11 16:34] LABS: COVID-19 PCR Negative (Negative)
--- NOTE | 2022-02-11 16:49 | SUR.PHASEI ---
pt first unit of blood ended
[2022-02-11] MEDS: diphenhydrAMINE 50 MG/ML VIAL 25 MG IVP (17:05)
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
[2022-02-11] MEDS: Ibuprofen 600 MG TAB PO (18:59)
[2022-02-11] MEDS: miSOPROStol 100 MCG TAB 200 MCG PO (20:10)
[2022-02-11 20:36] LABS: Abs Immature Grans 0.13 10^3/uL (0.0-0.06); Absolute Lymphocyte Count 2.95 10^3/uL (1.2-3.4); Absolute Neutrophil Count 7.23 10^3/uL (1.2-6.7); Basophils % 0.4; Eosinophils % 2.7; HCT 21.8 % (36.0-46.0); HGB 7.2 g/dL (11.2-15.7); Immature Grans % 1.2; Lymphocytes % 26.4; MCH 29.9 pg (27.0-33.0); MCV 91 fL (80-95); MPV 8.4 fL (8.0-11.0); Monocytes % 4.5; Neutrophils % 64.8; Nucleated RBC 0.3 % (0.0-0.3); Platelet Count 352 10^3/uL (130-400); RBC 2.41 10^6/uL (3.93-5.22); RDW 13.7 % (11.7-14.6); RDW-SD 45.4 fL; WBC 11.16 10^3/uL (4.4-10.8)
[2022-02-11 20:38] LABS: Absolute Basophil Count 0.04 10^3/uL (0.0-0.2)
[2022-02-11] MEDS: CLINDAMYCIN 900 MG/50 ML BAG 50 MG IVPB (20:40)
--- NOTE | 2022-02-11 22:32 | NUR.NOTE ---
up to the bathroom voided 200 cc's clear urine and had 50 cent size area on the padNursing Note:
[2022-02-12] VITALS (8 sets, daily range): BP systolic 101–138; BP diastolic 43–69; PULSE 68–107; RESP 16–18; TEMP 36.3–37.1; O2SAT 97–100
[2022-02-12] MEDS: Ibuprofen 600 MG TAB PO ×3 (00:05→12:00)
[2022-02-12] MEDS: Normal Saline Flush 10 ML SYR IVP ×2 (00:15→10:48)
[2022-02-12] MEDS: oxyCODONE 5 mg/Acetaminophen 325 mg TAB PO (02:19)
--- NOTE | 2022-02-12 02:22 | NUR.NOTE ---
Nursing Note: 0130 up to bathroom voided 200 cc's quarter size clot scant bleeding on peripad.
--- NOTE | 2022-02-12 05:19 | NUR.NOTE ---
0445 up to the bathroom passed 2 quarter size clots scant bleeding on christa pad voided 200 cc'sNursing Note:
[2022-02-12] MEDS: CLINDAMYCIN 900 MG/50 ML BAG 50 MG IVPB ×2 (05:45→14:05)
[2022-02-12 06:42] LABS: Abs Immature Grans 0.11 10^3/uL (0.0-0.06); Absolute Basophil Count 0.06 10^3/uL (0.0-0.2); Absolute Monocyte Count 0.63 10^3/uL (0.1-0.8); Basophils % 0.5; Eosinophils % 3.3; Immature Grans % 0.9; Lymphocytes % 23.9; MCH 30.2 pg (27.0-33.0); MCV 91 fL (80-95); MPV 8.3 fL (8.0-11.0); Monocytes % 5.2; Neutrophils % 66.2; Platelet Count 318 10^3/uL (130-400); RBC 2.22 10^6/uL (3.93-5.22); RDW 13.9 % (11.7-14.6); RDW-SD 46.6 fL; WBC 12.15 10^3/uL (4.4-10.8)
[2022-02-12 06:46] LABS: Absolute Neutrophil Count 8.04 10^3/uL (1.2-6.7)
[2022-02-12 06:47] LABS: HCT 20.3 % (36.0-46.0); HGB 6.7 g/dL (11.2-15.7)
--- NOTE | 2022-02-12 07:57 | PGE_ITS ---
Date of Service Date of service: 02/12/22 Time of Service: 07:57 Assessment and Plan Assessment and plan (1) Hx of section: Status: Acute (2) Anemia, : Status: Acute Assessment and plan: Hemoglobin this morning was 6.7. White count is 12. Recommend additional 1 unit of packed red blood cells with a repeat CBC following. We will transfuse an additional unit of packed red blood cell (3) endometritis: Status: Acute Assessment and plan: Continue IV antibiotics x24 hours then conversion to p.o. Subjective Subjective Interval history since last seen: Patient was seen and examined this morning. Overall feeling better. Swelling has improved. She denies fevers or chills. Her pelvic tenderness is improved. She is tolerating a regular diet. She has had scant bleeding vaginally. Her hemoglobin this morning was slightly diminished at 6.7. Vital signs are stable. Exam Narrative Exam Narrative: Rested through the night. No new concerns Const General: cooperative, healthy appearing, comfortable and no acute distress Nutritional Appearance: average body habitus [facility] Head: normal to inspection Eyes General: appearance normal, both eyes and all related structures Neck Neck: normal visual inspection and supple Resp Effort & Inspection: normal respiratory effort, no audible wheezes and no cough Cardio Rate: regular rate GI Palpation: soft, not firm, no guarding, no masses and tender (Less so than yesterday) Skin Rashes: other (Urticaria improved) Extrem General: no calf tenderness and edema (1+) Laterality: bilateral Objective Last Vital Signs Temp 98.4 F 02/12/22 05:20 Pulse 96 H 02/12/22 05:20 Resp 18 02/12/22 05:20 BP 120/59 L 02/12/22 05:20 Pulse Ox 97 02/12/22 01:20 Laboratory Results - last 24 hr 02/11/22 02/11/22 02/11/22 12:59 12:59 13:09 WBC 9.46 RBC 1.94 L Hgb 5.8 L* Hct 18.0 L* MCV 93 D MCH 29.9 MCHC 32.2 D RDW 13.5 Plt Count 305 MPV 8.1 Immature Gran % 1.3 Neutrophils % 72.8 Lymphocytes % 19.0 Monocytes % 3.6 Eosinophils % 3.0 Basophils % 0.3 Nucleated RBC % 0.2 Absolute Neutrophils 6.89 H Absolute Lymphocytes 1.80 Absolute Monocytes 0.34 Absolute Eosinophils 0.28 Absolute Basophils 0.03 Sodium 143 Potassium 3.5 Chloride 108 H Carbon Dioxide 27.4 Anion Gap 7.6 BUN 9 Creatinine 0.6 Est GFR (CKD-EPI 2020) 131.70 Glucose 100 Calcium 8.1 L Total Bilirubin 0.2 AST 23 ALT 17 Alkaline Phosphatase 82 Total Protein 5.6 L Albumin 2.0 L Urine Color Red Urine Clarity Cloudy Urine pH 6.0 Ur Specific [place] 1.025 Urine Protein 100 H Urine Ketones Trace H Urine Blood Large H Urine Nitrite Positive H Urine Bilirubin Small H Urine Urobilinogen 2.0 H Ur Leukocyte Esterase Small H Urine RBC >50 H Urine WBC 5-10 Ur Epithelial Cells Negative Urine Crystals Negative Urine Bacteria Moderate Urine Casts Negative Urine Mucus Negative Urine Other Negative Ur Culture Indicated? Yes Urine Glucose Negative COVID-19 Source SARS-CoV-2 (PCR) Patient ABO/Rh Antibody Screen Crossmatch 02/11/22 02/11/22 02/11/22 13:27 15:45 20:25 WBC 11.16 H RBC 2.41 L Hgb 7.2 L Hct 21.8 L MCV 91 MCH 29.9 MCHC 33.0 RDW 13.7 Plt Count 352 MPV 8.4 Immature Gran % 1.2 Neutrophils % 64.8 Lymphocytes % 26.4 Monocytes % 4.5 Eosinophils % 2.7 Basophils % 0.4 Nucleated RBC % 0.3 Absolute Neutrophils 7.23 H Absolute Lymphocytes 2.95 Absolute Monocytes 0.50 Absolute Eosinophils 0.30 Absolute Basophils 0.04 Sodium Potassium Chloride Carbon Dioxide Anion Gap BUN Creatinine Est GFR (CKD-EPI 2020) Glucose Calcium Total Bilirubin AST ALT Alkaline Phosphatase Total Protein Albumin Urine Color Urine Clarity Urine pH Ur Specific [place] Urine Protein Urine Ketones Urine Blood Urine Nitrite Urine Bilirubin Urine Urobilinogen Ur Leukocyte Esterase Urine RBC Urine WBC Ur Epithelial Cells Urine Crystals Urine Bacteria Urine Casts Urine Mucus Urine Other Ur Culture Indicated? Urine Glucose COVID-19 Source Nasal/Nares SARS-CoV-2 (PCR) Negative Patient ABO/Rh O Positive Antibody Screen NEGATIVE Crossmatch See Detail 02/12/22 06:30 WBC 12.15 H RBC 2.22 L Hgb 6.7 L* Hct 20.3 L* MCV 91 MCH 30.2 MCHC 33.0 RDW 13.9 Plt Count 318 MPV 8.3 Immature Gran % 0.9 Neutrophils % 66.2 Lymphocytes % 23.9 Monocytes % 5.2 Eosinophils % 3.3 Basophils % 0.5 Nucleated RBC % 0.0 Absolute Neutrophils 8.04 H Absolute Lymphocytes 2.90 Absolute Monocytes 0.63 Absolute Eosinophils 0.40 Absolute Basophils 0.06 Sodium Potassium Chloride Carbon Dioxide Anion Gap BUN Creatinine Est GFR (CKD-EPI 2020) Glucose Calcium Total Bilirubin AST ALT Alkaline Phosphatase Total Protein Albumin Urine Color Urine Clarity Urine pH Ur Specific [place] Urine Protein Urine Ketones Urine Blood Urine Nitrite Urine Bilirubin Urine Urobilinogen Ur Leukocyte Esterase Urine RBC Urine WBC Ur Epithelial Cells Urine Crystals Urine Bacteria Urine Casts Urine Mucus Urine Other Ur Culture Indicated? Urine Glucose COVID-19 Source SARS-CoV-2 (PCR) Patient ABO/Rh Antibody Screen Crossmatch
[2022-02-12] MEDS: miSOPROStol 100 MCG TAB 200 MCG PO ×3 (08:47→16:41)
[2022-02-12] MEDS: Acetaminophen 325 MG TAB 650 MG PO (10:02)
[2022-02-12] MEDS: Normal Saline 500 ML IV (10:47)
[2022-02-12 15:17] LABS: HCT 23.7 % (36.0-46.0); HGB 7.9 g/dL (11.2-15.7); MCH 29.9 pg (27.0-33.0); MCHC 33.3 % (32.0-36.0); MCV 90 fL (80-95); MPV 8.3 fL (8.0-11.0); Platelet Count 318 10^3/uL (130-400); RBC 2.64 10^6/uL (3.93-5.22); RDW 13.8 % (11.7-14.6); RDW-SD 45.4 fL; WBC 11.27 10^3/uL (4.4-10.8)
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
== END 2022-02-12 17:15 | disposition home or self-care (01) | DRG 776 ==
LOC: ER 17:43 → OBS 18:52
PROVIDERS: Physician Assistant; Admitting Provider Obstetrics & Gynecology; Emergency Provider Registered Nurse Emergency; PCP Pediatrics; Visit Provider Obstetrics & Gynecology
DX: O90.81 Anemia of the puerperium (principal); O86.12 Endometritis following delivery; O99.325 Drug use complicating the puerperium; O99.53 Diseases of the respiratory system complicating the puerperium; F90.9 Attention-deficit hyperactivity disorder, unspecified type; J45.909 Unspecified asthma, uncomplicated; F12.90 Cannabis use, unspecified, uncomplicated
CPT/HCPCS: 36415; 36430; 80053; 85027; 86850; 86900; 86901; 86920; 87635; 96365; 96366; 96374; 99285; 74177; 81003; 81015; 85025; 87086; J1200; J1580; P9016

== ENCOUNTER 2022-09-18 16:37 | Emergency (ER) | payer MEDICAID, SELFPAY ==
[2022-09-18 16:39] VITALS: BP 135/55; PULSE 88; RESP 15; TEMP 36.5; O2SAT 100
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
--- NOTE | 2022-09-18 18:18 | NUR.NOTE ---
Nursing Note: Referral given to Care Management to establish care, needs a PCP/ routine follow up.
--- NOTE | 2022-09-21 09:27 | PDOC.CMACT ---
Date of service: 09/21/22 Time of Service: 09:27 Care Management Activity Note Activity Note Text Activity Note Text: Nazanin is seen in the ED for inguinal lymphadenopathy. At the request of ED provider, CM coordinates a referral to Dr. River Martines of [facility], t-doc, to assist Nazanin in obtaining a follow up appointment and in establishing care with a PCP. She has Medicaid for insurance.
== END 2022-09-18 17:14 | disposition home or self-care (01) ==
PROVIDERS: Emergency Provider Emergency Medicine; PCP Nurse Practitioner Pediatrics
DX: R59.0 Localized enlarged lymph nodes (principal)
CPT/HCPCS: 99281; 99282

== ENCOUNTER 2022-09-22 12:13 | Emergency (ER) | payer MEDICAID, SELFPAY ==
[2022-09-22 12:19] VITALS: BP 111/77; PULSE 80; RESP 16; TEMP 36.6; O2SAT 99
--- NOTE | 2022-09-22 12:30 | RT.EKG_ITS ---
APPROVED REPORT Exam: Resting ECG Reason for Exam: chest pain Patient Location: E HR:76 bpm ECG Measurements Heart Rate 76 AXIS MD 125 P 24 QRSd 100 QRS 77 QT 374 T 30 QTc 421 Conclusion Sinus rhythm...normal P axis, V-rate 60- 99 Physician: no stemi
--- NOTE | 2022-09-22 12:45 | DI.RAD_ITS ---
Exam(s) XR CHEST 2V PA LATERAL EXAM: XR CHEST 2V PA LATERAL CLINICAL HISTORY: chest pain TECHNIQUE: 2D digital imaging was performed of the chest. Two images were obtained. PA and lateral views were obtained. COMPARISON: CR XR PORTABLE CHEST AP from 12/25/2017 FINDINGS: MEDIASTINUM: Normal. HEART: Normal. PULMONARY VASCULATURE: Normal. LUNGS: Clear. PLEURAL SPACE: No pleural effusion or pneumothorax. BONE:Within normal limits for the patient's age. OTHER FINDINGS:Normal. IMPRESSION: No acute pulmonary findings. DATA REPOSITORY: RADIATION DOSE DELIVERED:
[2022-09-22] MEDS: Acetaminophen 325 MG TAB 650 MG PO (12:58)
[2022-09-22 13:01] LABS: Abs Immature Grans 0.04 10^3/uL (0.0-0.06); Absolute Lymphocyte Count 2.57 10^3/uL (1.2-3.4); Absolute Monocyte Count 0.58 10^3/uL (0.1-0.8); Basophils % 0.3; HCT 39.8 % (36.0-46.0); HGB 13.2 g/dL (11.2-15.7); Immature Grans % 0.3; MCH 27.6 pg (27.0-33.0); MCHC 33.2 % (32.0-36.0); MCV 83 fL (80-95); MPV 8.5 fL (8.0-11.0); Neutrophils % 72.4; Platelet Count 374 10^3/uL (130-400); RBC 4.78 10^6/uL (3.93-5.22); RDW 13.7 % (11.7-14.6); RDW-SD 41.9 fL; WBC 11.66 10^3/uL (4.4-10.8)
[2022-09-22 13:02] VITALS: PULSE 79; RESP 16; O2SAT 97
[2022-09-22 13:03] LABS: Absolute Basophil Count 0.03 10^3/uL (0.0-0.2); Absolute Neutrophil Count 8.44 10^3/uL (1.2-6.7)
[2022-09-22 13:05] VITALS: BP 117/55; PULSE 77; PULSE 84; RESP 17; O2SAT 98
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
[2022-09-22 13:39] LABS: Anion Gap 11.8 mmol/L (3-11); BUN 7 mg/dL (7-18); CO2 25.2 mmol/L (21.0-32.0); CREATININE 0.8 mg/dL (0.55-1.02); Calcium 9.1 mg/dL (8.5-10.1); Chloride 104 mmol/L (98-107); Estimated GFR 108.11 (mL/min/1.73m2); Glucose 100 mg/dL (74-106); NT-proBNP 84 pg/mL (<300); Potassium 3.5 mmol/L (3.5-5.1); Sodium 141 mmol/L (136-145); Troponin I < 50 ng/L (<or=60)
[2022-09-22 13:54] LABS: HCG Qual (Serum) Negative
[2022-09-22 14:05] VITALS: TEMP 37.2
== END 2022-09-22 14:17 | disposition home or self-care (01) ==
PROVIDERS: Emergency Provider Physician Assistant
DX: I26.99 Other pulmonary embolism without acute cor pulmonale (principal)
CPT/HCPCS: 36415; 80048; 93005; 96374; 99284; 71046; 83880; 84484; 84703; 85025; 93010

== ENCOUNTER 2022-09-23 15:02 | Emergency (ER) | payer MEDICAID, SELFPAY ==
--- NOTE | 2022-09-23 15:00 | RT.EKG_ITS ---
APPROVED REPORT Exam: Resting ECG Reason for Exam: altered mental status Patient Location: E HR:81 bpm ECG Measurements Heart Rate 81 AXIS WA 124 P 24 QRSd 97 QRS 74 QT 356 T 22 QTc 414 Conclusion Sinus rhythm...normal P axis, V-rate 60- 99 sinus rhythm, normal axis normal intervals non ischemic
[2022-09-23 15:06] VITALS: BP 117/95; PULSE 99; RESP 19; TEMP 37.1; O2SAT 97
[2022-09-23 15:19] VITALS: RESP 18
[2022-09-23] MEDS: Normal Saline 1,000 ML 1000 ML IV (16:20)
[2022-09-23] MEDS: hydrOXYzine HCL 25 MG TAB PO (16:25)
[2022-09-23 16:28] LABS: Abs Immature Grans 0.04 10^3/uL (0.0-0.06); Absolute Basophil Count 0.05 10^3/uL (0.0-0.2); Absolute Monocyte Count 0.49 10^3/uL (0.1-0.8); Absolute Neutrophil Count 9.98 10^3/uL (1.2-6.7); Basophils % 0.4; HCT 40.1 % (36.0-46.0); HGB 13.2 g/dL (11.2-15.7); Immature Grans % 0.3; Lymphocytes % 16.6; MCH 27.3 pg (27.0-33.0); MCHC 32.9 % (32.0-36.0); MCV 83 fL (80-95); Monocytes % 3.9; Neutrophils % 78.8; Platelet Count 404 10^3/uL (130-400); RBC 4.84 10^6/uL (3.93-5.22); RDW 13.7 % (11.7-14.6); RDW-SD 41.4 fL; WBC 12.66 10^3/uL (4.4-10.8)
[2022-09-23 17:01] LABS: ALT 18 U/L (14-59); AST 14 U/L (15-37); Albumin 4.5 g/dL (3.4-5.0); Alkaline Phosphatase 85 U/L (46-116); Anion Gap 17.5 mmol/L (3-11); BUN 10 mg/dL (7-18); Bilirubin, Total 1.1 mg/dL (0.2-1.0); CO2 20.5 mmol/L (21.0-32.0); CREATININE 0.8 mg/dL (0.55-1.02); Calcium 9.2 mg/dL (8.5-10.1); Chloride 103 mmol/L (98-107); Estimated GFR 108.11 (mL/min/1.73m2); Glucose 88 mg/dL (74-106); Magnesium 1.7 mg/dL (1.8-2.4); Potassium 3.5 mmol/L (3.5-5.1); Sodium 141 mmol/L (136-145); Total Protein 8.4 g/dL (6.4-8.2); Troponin I < 50 ng/L (<or=60)
[2022-09-23 17:04] LABS: NT-proBNP 32 pg/mL (<300)
[2022-09-23] MEDS: Magnesium Oxide 400 MG TAB PO (17:19)
[2022-09-23] MEDS: Lactated Ringers 1,000 ML 1000 ML IV (17:20)
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
--- NOTE | 2022-09-23 18:14 | NUR.NOTE ---
Nursing Note: Referral faxed to Jim GOLDSTEIN who she had an appt with today. Referral for anxiety re:PE/in 3 days.
[2022-09-23 18:34] VITALS: BP 125/65; PULSE 74; RESP 16; O2SAT 97
== END 2022-09-23 18:35 | disposition home or self-care (01) ==
PROVIDERS: Emergency Provider Nurse Practitioner Family; PCP Nurse Practitioner Adult Health
DX: F41.9 Anxiety disorder, unspecified (principal); I26.99 Other pulmonary embolism without acute cor pulmonale
CPT/HCPCS: 36415; 80053; 81025; 93005; 96360; 96361; 99284; 83735; 83880; 84484; 85025; 93010

== ENCOUNTER 2022-09-25 16:14 | Emergency (ER) | payer MEDICAID, SELFPAY ==
[2022-09-25] VITALS (16 sets, daily range): BP systolic 116–133; BP diastolic 59–77; PULSE 68–90; RESP 14–20; TEMP 36.6–36.9; O2SAT 95–100
--- NOTE | 2022-09-25 16:45 | DI.CT_ITS ---
Exam(s) CT CHEST PE CTA EXAM: CT CHEST PE CTA CLINICAL HISTORY: increased chest pressure - new dx of PE. TECHNIQUE: Imaging Protocol: Axial CT angiography was performed with multi-slice acquisition and mu lti-planar and/or 3D reconstructions. CONTRAST MATERIAL: Intravenous: Omnipaque 350 contrast volume:59 mL COMPARISON: CT CT ABDOMEN PELVIS W from 02/11/2022 FINDINGS: The examination is limited due to patient motion artifact. Tracheobronchial tree: Patent where visualized. Pulmonary parenchyma: No consolidation or dominant measurable mass. No architectural distortion. Ther e is a tiny density (less than 3 mm) associated with the right minor fissure. This can be a perifiss ural lymph node. No suspicious pulmonary nodules are seen. Pulmonary Arteries: Subsegmental pulmonary artery evaluation is limited due to patient motion. No la rge central pulmonary embolus is seen. There is an area of hypodensity within or adjacent to a subse gmental right pulmonary artery branch (series 6 image 253). Mediastinum and [place]: No dominant adenopathy or fluid collection. The esophagus is unremarkable. Visualized thyroid gland: Unremarkable. Pleura: No effusion or pneumothorax. Heart: The heart is not dilated. No coronary artery calcifications are seen. No pericardial effusion. There is no evidence of right heart failure. Aorta: Thoracic aorta non-dilated. No evidence of dissection. Upper abdomen: Unremarkable. Soft tissues: Unremarkable. Bones: Within normal limits for the patient's age. IMPRESSION: 1. Examination limited by patient motion artifact and pulsation artifact. This limits evaluation of pulmonary emboli particularly in the segmental and subsegmental branches. 2. Area of hypodensity in a right subsegmental pulmonary artery branch as described above. This like ly represents mixing artifact but small pulmonary embolism cannot be entirely excluded. There is no evidence of right heart failure. The RV to LV ratio is less than 1. 3. No acute pulmonary process. RADIATION DOSE DELIVERED: 447.79mGy.cm Total DLP DATA REPOSITORY: All CT scans at this facility are submitted to the National Radiology Data Registry (NRDR) Dose Index Registry (DIR) with the [employer] ([employer]). RADIATION OPTIMIZATION: All CT scans at this facility use at least one of these dose optimization te chniques: automated exposure control; mA and/or kV adjustment per patient size (includes targeted exa ms where dose is matched to clinical indication); or iterative reconstruction.
--- NOTE | 2022-09-25 16:45 | RT.EKG_ITS ---
APPROVED REPORT Exam: Resting ECG Reason for Exam: chest pressure Patient Location: E HR:64 bpm ECG Measurements Heart Rate 64 AXIS OR 132 P 56 QRSd 98 QRS 57 QT 373 T 43 QTc 386 Conclusion Sinus rhythm...normal P axis, V-rate 60- 99
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
[2022-09-25 17:08] LABS: Abs Immature Grans 0.02 10^3/uL (0.0-0.06); Absolute Basophil Count 0.05 10^3/uL (0.0-0.2); Absolute Eosinophil Count 0.07 10^3/uL (0.0-0.7); Absolute Lymphocyte Count 2.72 10^3/uL (1.2-3.4); Absolute Monocyte Count 0.48 10^3/uL (0.1-0.8); Absolute Neutrophil Count 6.33 10^3/uL (1.2-6.7); Basophils % 0.5; Eosinophils % 0.7; HCT 38.5 % (36.0-46.0); HGB 12.6 g/dL (11.2-15.7); Immature Grans % 0.2; Lymphocytes % 28.1; MCH 27.4 pg (27.0-33.0); MCHC 32.7 % (32.0-36.0); MCV 84 fL (80-95); MPV 8.5 fL (8.0-11.0); Neutrophils % 65.5; Platelet Count 358 10^3/uL (130-400); RDW 13.8 % (11.7-14.6); RDW-SD 42.2 fL; WBC 9.67 10^3/uL (4.4-10.8)
[2022-09-25] MEDS: ACETAMINOPHEN 1,000 MG/100 ML BTL 400 MG IVPB (17:11)
[2022-09-25 17:29] LABS: INR 1.2 (0.9-1.1); PTT Activated 30.5 sec (21.5-31.9); Prothrombin Time 12.6 sec (9.3-11.0)
[2022-09-25 17:31] LABS: ALT 17 U/L (14-59); AST 14 U/L (15-37); Albumin 4.3 g/dL (3.4-5.0); Alkaline Phosphatase 81 U/L (46-116); Anion Gap 11.5 mmol/L (3-11); BUN 9 mg/dL (7-18); Bilirubin, Total 0.8 mg/dL (0.2-1.0); CO2 24.5 mmol/L (21.0-32.0); CREATININE 0.7 mg/dL (0.55-1.02); Calcium 9.2 mg/dL (8.5-10.1); Chloride 106 mmol/L (98-107); Glucose 83 mg/dL (74-106); Magnesium 1.7 mg/dL (1.8-2.4); NT-proBNP 34 pg/mL (<300); Potassium 3.5 mmol/L (3.5-5.1); Sodium 142 mmol/L (136-145); Troponin I < 50 ng/L (<or=60)
[2022-09-25] MEDS: Magnesium Oxide 400 MG TAB PO ×2 (18:28→18:29)
[2022-09-25] MEDS: diphenhydrAMINE 50 MG/ML VIAL IVP (18:29)
[2022-09-25] MEDS: Normal Saline 1,000 ML 1000 ML IV (18:29)
[2022-09-25] MEDS: methylPREDNISolone SUCC 40 MG VIAL IVP (18:29)
--- NOTE | 2022-09-25 18:39 | NUR.NOTE ---
Nursing Note: At 1726 the patient states she is not sure if she wants to have a CT scan and is concerned for cancer. Medication held per patient's request as benadryl knocks me out and if scan is not going to be done, there is no need for benadryl and solu-medrol. Pt States she would like to speak with the provider. After speaking with the provider, RN notified by PASTRYCOOK around 1820 that patient is agreeable to scan and therefore will be pre-medicated for scan with patient's verbal consent.
[2022-09-25] MEDS: Normal Saline - Diluent 50 ML VIAL IJ (19:38)
[2022-09-25] MEDS: Omnipaque 350 MG/ML 100 ML BTL IJ (19:39)
--- NOTE | 2022-09-25 20:57 | DI.VRAD_ITS ---
PROCEDURE INFORMATION: Exam: CTA Chest With Contrast Exam date and time: 09/25/2022 7:29 PM Age: 22 years old Clinical indication: Pain; Chest pressure. The patient has a recent history of pulmonary emboli, diagnosed at an outside facility. No comparison images were available. She is currently on anticoagulation. TECHNIQUE: Imaging protocol: Computed tomographic angiography of the chest with contrast. Exam focused on the arteries. 3D rendering (Not supervised by radiologist): MIP and/or 3D reconstructed images were created by the technologist. Contrast material: OMNIPAQUE 350; Contrast volume: 59 ml; Contrast route: INTRAVENOUS (IV); COMPARISON: CR XR CHEST 2V PA LATERAL 09/22/2022 1:17 PM FINDINGS: Limitations: Compromised examination secondary to respiratory motion, pulsation artifact, and quantum mottle. Pulmonary arteries: This is a limited examination for the exclusion of pulmonary emboli secondary to motion and mixing artifact. Small PEs would be difficult to exclude on this study. No central pulmonary embolism is identified. There is an area of hypodensity in a right subsegmental pulmonary artery on series 6, image 253 which could represent mixing artifact or a small pulmonary embolism. The RV/LV ratio is approximately 0.7. There is no reflux of contrast into the IVC or bowing of the intraventricular septum. The size of the main pulmonary artery is difficult to measure secondary to motion. Aorta: Evaluation of the ascending thoracic aorta is limited secondary to motion/pulsation artifact. No aneurysm. Lungs: Series 6, image 212 demonstrates a nonspecific 3 mm right pulmonary nodule. There are no wedge-shaped pulmonary opacities to suggest areas of infarction. Pleural spaces: Unremarkable. No pneumothorax. No pleural effusion. Heart: Unremarkable. No cardiomegaly. No pericardial effusion. Lymph nodes: Unremarkable. No enlarged lymph nodes. Bones/joints: Unremarkable. No acute fracture. Soft tissues: There is gastric wall prominence which can be seen with underdistention or gastritis. Some hyperdensity is noted within the stomach. This may be related to ingested products but should be correlated with any concern for blood products.. IMPRESSION: The patient has a recent history of pulmonary emboli, diagnosed at an outside facility. No comparison images were available. She is currently on anticoagulation. 1. This is a limited examination for the exclusion of pulmonary emboli secondary to respiratory motion, pulsation artifact, and mixing artifact. Small PEs would be difficult to exclude on this study. No definite central pulmonary embolism is identified. There is an area of hypodensity in a right subsegmental pulmonary artery on series 6, image 253 which could represent mixing artifact or a small pulmonary embolism. 2. There is gastric wall prominence which can be seen with underdistention or gastritis. Some hyperdensity is noted within the stomach, dependent aspect. This may be related to ingested products but should be correlated with any concern for blood products. 3. Nonspecific 3 mm right pulmonary nodule. If the patient does not have known cancer, follow up should be based on clinical information because of the low risk of cancer in this age group. (Reference: Danny) References: MacMahohuma H, et al. Guidelines for Management of Incidental Pulmonary Nodules Detected on CT Images: From the Fleischner Society 2017. Radiology. 2017;284(1):228-243. THIS REPORT CONTAINS FINDINGS THAT MAY BE CRITICAL TO PATIENT CARE. The findings were verbally communicated via telephone conference with LAUREN DELA CRUZ at 8:46 PM EDT on 09/25/2022. The findings were acknowledged and understood. Dictated and Authenticated by: Nitza Jordan MD. Ordering:KYREE Pollard MD
== END 2022-09-25 21:29 | disposition home or self-care (01) ==
PROVIDERS: Emergency Provider Nurse Practitioner Family; PCP Nurse Practitioner Adult Health
DX: I26.99 Other pulmonary embolism without acute cor pulmonale (principal); F41.9 Anxiety disorder, unspecified; M54.50 Low back pain, unspecified
CPT/HCPCS: 71275; 80053; 93005; 96361; 96374; 96375; 99285; 83735; 83880; 84484; 85025; 85610; 85730; 93010; 99284; J0131; J1200; J3490

== ENCOUNTER 2022-09-30 03:07 | Outpatient (CLI) | payer MEDICAID, SELFPAY ==
[2022-10-01 20:23] LABS: INR 1.2 Ratio (0.9-1.1)
[2022-10-01 20:37] LABS: D-Dimer (UVM) <150 ng/mL DDU (<=230)
[2022-10-04 09:36] LABS: Factor 8 Assay 102 % (50-150)
[2022-10-04 09:47] LABS: Antithrombin 3, Funct. 120 % (85-125)
[2022-10-04 10:24] LABS: PTT (UVM) 33 secs (26-37)
[2022-10-05 17:03] LABS: Beta 2 GP1 Ab IgG <9.4 SGU; Beta 2 GP1 Ab IgM <9.4 SMU
[2022-10-05 17:08] LABS: Phospholipid Ab, IgG <9.4 GPL; Phospholipid Ab, IgM <9.4 MPL
[2022-10-06 10:14] LABS: Protein C, Functional 136 % (71-199)
[2022-10-06 10:16] LABS: Protein S, Functional 120 % (64-147)
[2022-10-07 13:55] LABS: LA Cascade Summary (See Note)
== END 2022-09-30 03:08 | disposition home or self-care (01) ==
LOC: LBO 03:07
PROVIDERS: PCP Nurse Practitioner Adult Health; Referring Provider Emergency Medicine; Visit Provider Emergency Medicine
DX: I26.99 Other pulmonary embolism without acute cor pulmonale (principal); Z79.01 Long term (current) use of anticoagulants; F41.8 Other specified anxiety disorders; Z79.899 Other long term (current) drug therapy
CPT/HCPCS: 36415; 81240; 81241; 82784; 85300; 85303; 85306; 85610; 85613; 85730; 85732; 85240; 85379

== ENCOUNTER 2022-10-03 10:32 | Emergency (ER) | payer MEDICAID, SELFPAY ==
[2022-10-03 10:33] VITALS: BP 131/58; PULSE 79; RESP 20; TEMP 36.1; O2SAT 100
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
[2022-10-03] MEDS: Albuterol/Ipratropium 3 ML UPD VIAL UPD (11:40)
--- NOTE | 2022-10-04 15:45 | NUR.NOTE ---
Nursing Note: Patient called asking for a spacer. I consulted with Dr Nguyen and she said that one can be called in. Called [facility] and the pharmacist said that it was taken care of.
== END 2022-10-03 12:41 | disposition home or self-care (01) ==
PROVIDERS: Emergency Provider Emergency Medicine Emergency Medical Services; PCP Nurse Practitioner Adult Health
DX: J98.01 Acute bronchospasm (principal); N93.9 Abnormal uterine and vaginal bleeding, unspecified; R10.9 Unspecified abdominal pain
CPT/HCPCS: 81025; 94640; 99284; J7620

== ENCOUNTER 2022-10-10 21:13 | Emergency (ER) | payer MEDICAID, SELFPAY ==
[2022-10-10 21:17] VITALS: BP 140/66; PULSE 87; RESP 20; TEMP 36.8; O2SAT 99
[2022-10-10 21:44] LABS: Bilirubin Negative (Negative); Blood Negative (Negative); Clarity Cloudy (Clear); Glucose Negative (Negative); Ketones Negative (Negative); Leukocyte Esterase Negative (Negative); Nitrite Negative (Negative); Urobilinogen 0.2 mg/dL (Up to 0.2); pH 7.5 (5-8)
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
[2022-10-12 23:13] LABS: Chlamydia Result Negative (Negative); GC Result Negative (Negative)
== END 2022-10-10 22:45 | disposition home or self-care (01) ==
PROVIDERS: Emergency Provider Physician Assistant; PCP Nurse Practitioner Adult Health
DX: R10.9 Unspecified abdominal pain (principal)
CPT/HCPCS: 81025; 87491; 87591; 99283; 81003; 87086; 87480; 87510; 87660; 99284

== ENCOUNTER 2022-10-24 11:57 | Emergency (ER) | payer MEDICAID, SELFPAY ==
[2022-10-24 12:09] VITALS: BP 113/56; PULSE 68; RESP 18; TEMP 37.6; O2SAT 100
== END 2022-10-24 13:21 | disposition left against medical advice (07) ==
LOC: ER 12:06
PROVIDERS: PCP Nurse Practitioner Adult Health
DX: Z53.21 Procedure and treatment not carried out due to patient leaving prior to being seen by health care provider (principal)

== ENCOUNTER 2022-10-26 16:20 | Emergency (ER) | payer MEDICAID, SELFPAY ==
--- NOTE | 2022-10-26 16:15 | RT.EKG_ITS ---
APPROVED REPORT Exam: Resting ECG Reason for Exam: dizziness Patient Location: E HR:73 bpm ECG Measurements Heart Rate 73 AXIS AL 125 P 32 QRSd 87 QRS 86 QT 374 T 31 QTc 412 Conclusion Sinus arrhythmia...V-rate 61- 89, variation>10% Physician: no stemi
[2022-10-26 16:22] VITALS: BP 125/66; PULSE 79; RESP 18; TEMP 37.1; O2SAT 99
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
[2022-10-26 17:01] VITALS: RESP 18
[2022-10-26] MEDS: Meclizine 12.5 MG TAB PO (17:03)
[2022-10-26] MEDS: Meclizine 25 MG TAB PO (17:03)
== END 2022-10-26 17:16 | disposition home or self-care (01) ==
PROVIDERS: Emergency Provider Registered Nurse Emergency; PCP Nurse Practitioner Adult Health
DX: R42 Dizziness and giddiness (principal); H92.02 Otalgia, left ear
CPT/HCPCS: 93005; 99283; 93010; 99282

== ENCOUNTER 2022-10-28 12:18 | Emergency (ER) | payer MEDICAID, SELFPAY ==
[2022-10-28] VITALS (15 sets, daily range): BP systolic 110–136; BP diastolic 48–83; PULSE 57–73; RESP 14; TEMP 36.7; O2SAT 96–98
--- NOTE | 2022-10-28 12:15 | RT.EKG_ITS ---
APPROVED REPORT Exam: Resting ECG Reason for Exam: passed out Patient Location: E HR:68 bpm ECG Measurements Heart Rate 68 AXIS MT 134 P 46 QRSd 91 QRS 87 QT 383 T 50 QTc 406 Conclusion Sinus rhythm...normal P axis, V-rate 60- 99 Low voltage, precordial leads...precordial leads <1.0mV Normal sinus rhyth. No change from prior 10/26/22. WD
--- OUTSIDE RECORDS SUMMARY | 2022-10-28 12:23 | XMS_ITS | Continuity of Care Document ---
Author Name Unknown Organization [facility] Address [address] [place] [address] Encounter [facility]TT[id number] FIN NBR [id number] Date(s): 09/18/22 - 09/18/22 [facility] [address] [place], [place] [address] [place] Encounter Diagnosis Ureteral dilatation(Discharge Diagnosis) - 09/18/22 Discharge Disposition: Home f/u Internal Provider Attending Physician: Stephen Peñaloza DO Admitting Physician: Stephen Peñaloza DO Allergies, Adverse Reactions, Alerts No Known Allergies Functional Status 09/18/22 Other exposure to Infectious Disease Non e Mental Status 09/18/22 Eye Opening Response [place] Spontaneous ly Best Verbal Response Terence Oriented Best Motor Response Terence Obeys comman ds [place] Coma Score 15 Results Laboratory List Name Date Urinalysis with Micro if Indicated and C ulture if Indicated 09/18/22 CBC w/ Diff 09/18/22 Comprehensive Metabolic Panel (CMP) 09/18 Lipase Level 09/18/22 Automated Diff 09/18/22 Most recent to oldest [Reference Range]: 1 WBC [4.8-10.8 K/mcL] 10.4 K/mcL (09/18/22 8:34 PM) RBC [4.20-5.40 Million/mcL] 4.62 Million /mcL (09/18/22 8:34 PM) Neutro Auto [42.2-75.2 %] 66.1 % (09/18/22 8:34 PM) Lymph Auto [20.5-51.1 %] 27.6 % (09/18/22 8:34 PM) [place] Auto [1.7-9.3 %] 5.3 % (09/18/22 8:34 PM) Basophil Auto [0.0-0.8 %] 0.3 % (09/18/22 8:34 PM) BUN [8-26 mg/dL] 10 mg/dL (09/18/22 8:34 PM) UA Color LIGHT YELL *NA* (09/18/22 9:39 PM) Glucose Level [74-106 mg/dL] 104 mg/dL (09/18/22 8:34 PM) Potassium Level [3.5-5.1 mmol/L] 3.5 mmo l/L (09/18/22 8:34 PM) Baso Absolute [0.0-0.2 K/mcL] 0.0 K/mcL (09/18/22 8:34 PM) MCV [81.0-99.0 fL] 83.5 fL (09/18/22 8:34 PM) UA Urobilinogen [0.2] 0.2 (09/18/22 9:39 PM) UA Bili [Negative] Negative (09/18/22 9:39 PM) UA Ketones [Negative] Negative (09/18/22 9:39 PM) AST [15-41 IntlUnit/L] 20 IntlUnit/L (09/18/22 8:34 PM) ALT [14-54 IntlUnit/L] 13 IntlUnit/L *LOW* (09/18/22 8:34 PM) MCHC [32.0-36.0 g/dL] 33.2 g/dL (09/18/22 8:34 PM) Osmolality [275-295 mOsm/kg] 268 mOsm/kg *LOW* (09/18/22 8:34 PM) Sodium Level [134-143 mmol/L] 134 mmol/L (09/18/22 8:34 PM) UA Leuk Est [Negative] Negative (09/18/22 9:39 PM) Lymph Absolute [1.2-3.4 K/mcL] 2.9 K/mcL (09/18/22 8:34 PM) UA Nitrite [Negative] Negative (09/18/22 9:39 PM) UA Glucose [Negative] Negative (09/18/22 9:39 PM) Hct [37.0-47.0 %] 38.6 % (09/18/22 8:34 PM) Lipase Level [18-51 unit/L] 25 unit/L 1 (09/18/22 8:34 PM) Calcium Level [8.9-10.3 mg/dL] 8.8 mg/dL *LOW* (09/18/22 8:34 PM) Muh[place] Absolute [0.1-0.6 K/mcL] 0.6 K/mcL (09/18/22 8:34 PM) Albumin Level [3.5-5.0 g/dL] 4.4 g/dL (09/18/22 8:34 PM) Protein Total [6.5-8.1 g/dL] 7.5 g/dL (09/18/22 8:34 PM) UA Protein [Negative] Negative (09/18/22 9:39 PM) MCH [27.0-31.0 pg] 27.7 pg (09/18/22 8:34 PM) Neutro Absolute [1.4-6.5 K/mcL] 6.9 K/mc L *HI* (09/18/22 8:34 PM) Bilirubin Total [0.2-1.2 mg/dL] 1.0 mg/d L (09/18/22 8:34 PM) Hgb [12.0-16.0 g/dL] 12.8 g/dL (09/18/22 8:34 PM) Alk Phos [38-130 IntlUnit/L] 70 IntlUnit /L (09/18/22 8:34 PM) UA Blood [Negative] Negative (09/18/22 9:39 PM) MPV [7.4-10.4 fL] 8.8 fL (09/18/22 8:34 PM) UA Spec Grav <=1.005 *NA* (09/18/22 9:39 PM) Platelets [130-400 K/mcL] 360 K/mcL (09/18/22 8:34 PM) CO2 [22-32 mmol/L] 21 mmol/L *LOW* (09/18/22 8:34 PM) Eos Absolute [0.0-0.2 K/mcL] 0.0 K/mcL (09/18/22 8:34 PM) UA pH 6.00 *NA* (09/18/22 9:39 PM) UA Appear [Clear] Clear (09/18/22 9:39 PM) Chloride Level [98-111 mmol/L] 103 mmol/ L (09/18/22 8:34 PM) RDW-CV [11.5-14.5 %] 13.8 % (09/18/22 8:34 PM) A/G Ratio 1.4 *NA* (09/18/22 8:34 PM) BUN/Creat Ratio [8.0-20.0] 14.3 (09/18/22 8:34 PM) Globulin 3.1 *NA* (09/18/22 8:34 PM) Imm Gran Absolute 0.02 *NA* (09/18/22 8:34 PM) Imm Gran Auto [0.0-0.5 %] 0.2 % (09/18/22 8:34 PM) Slide Review Not Indicated (09/18/22 8:34 PM) Urine Srce Clean Catch (09/18/22 9:39 PM) Creatinine Level [0.44-1.00 mg/dL] 0.70 mg/dL (09/18/22 8:34 PM) Anion Gap [3.0-12.0] 10.0 (09/18/22 8:34 PM) Eos, Auto [0.00-3.00 %] 0.50 % (09/18/22 8:34 PM) eGFR CKD-EPI [>=60 mL/min/1.73 m2] 127 m L/min/1.73 m2 (09/18/22 8:34 PM) 1Interpretive Data: O-svgxns-n-benzoquinone imine (meabolite of Acetaminophen) will generate erroneously low lipase results in samples for patients that have taken toxic doses of acetaminophen. Radiology Reports * Exam Date Time Procedure Performing Provider Status 09/18/22 8:[address] Abdomen and Pelvi s w/o Contrast Razia, Vesta; Auth (Verified) Notes: (CT Abdomen and Pelvis w/o Contrast) Reason For Exam: abd pain, right lower quadrant predominant CT Abdomen and Pelvis w/o Contrast PROCEDURE INFORMATION: Exam: CT Abdomen And Pelvis Without Contrast Exam date and time: 09/18/2022 8:48 PM Age: 22 years old Clinical indication: Abdominal pain; Additional info: Abd pain, right lower quadrant predominant TECHNIQUE: Imaging protocol: Computed tomography of the abdomen and pelvis without contrast. Radiation optimization: All CT scans at this facility use at least one of these dose optimization techniques: automated exposure control; mA and/or kV adjustment per patient size (includes targeted exams where dose is matched to clinical indication); or iterative reconstruction. REPORTING DATA: Count of CT and Cardiac NM exams in prior 12 months: This patient has received 0 known CTs and 0 known cardiac nuclear medicine studies in the 12 months prior to the current study. COMPARISON: No relevant prior studies available. FINDINGS: Liver: Normal. No mass. Gallbladder and bile ducts: Normal. No calcified stones. No ductal dilation. Pancreas: Normal. No ductal dilation. Spleen: Normal. No splenomegaly. Adrenal glands: Normal. No mass. Kidneys and ureters: Mild right periureteral fat stranding. No evidence of stones within the kidneys, ureters or bladder. Stomach and bowel: No evidence of small bowel obstruction. Appendix: Visualized portion appendix normal. Intraperitoneal space: Unremarkable. No free air. No significant fluid collection. Vasculature: Unremarkable. No abdominal aortic aneurysm. Lymph nodes: Unremarkable. No enlarged lymph nodes. Urinary bladder: See Kidneys and ureters finding. Reproductive: Uterus appears within normal limits. Bones/joints: Unremarkable. No acute fracture. Soft tissues: Unremarkable. IMPRESSION: 1. Possible residual mild right obstructive uropathy- obstructive nephropathy related to passed renal stone and/or renal-urinary tract infection. 2. No evidence of stones within the kidneys, ureters or bladder. 3. No evidence of small bowel obstruction. THIS DOCUMENT HAS BEEN ELECTRONICALLY SIGNED BY VALDO CHISHOLM MD on 09/18/2022 09:22 PM Final Signed by: Valdo Chisholm MD Signed (Electronic Signature): 09/18/2022 9:22 pm Vital Signs Most recent to oldest [Reference Range]: 1 Temperature Temporal Artery [36-38 Deg C ] 36.7 Deg C (09/18/22 8:08 PM) Peripheral Pulse Rate [60-100 bpm] 98 bp m (09/18/22 8:08 PM) Respiratory Rate [12-24 br/min] 18 br/mi n (09/18/22 8:08 PM) Blood Pressure [90-140/60-90 mmHg] 135/6 4mmHg (09/18/22 8:08 PM) Weight 56.00 kg (09/18/22 8:08 PM) Weight Dosing 56.00 kg (09/18/22 8:23 PM) Height 160.000 cm (09/18/22 8:08 PM) Height/Length Dosing 160.000 cm (09/18/22 8:23 PM) Body Mass Index 22.000 kg/m2 (09/18/22 8:08 PM) Social History Social History Type Response Tobacco Never tobacco user T obacco Use:. Sex Hospital Discharge Instructions Patient Education 09/18/2022 20:56:24 Kidney Stones Kidney Stones Kidney stones are solid, rock-like deposits that form inside of the kidneys. The kidneys are a pairof organs that make urine. A kidney stone may form in a kidney and move into other parts of the urinary tract, including the tubes that connect the kidneys to the bladder (ureters), the bladder, and the tube that carries urine out of the body (urethra). As the stone moves through these areas, it can cause intense pain and block the flow of urine. Kidney stones are created when high levels of certain minerals are found in the urine. The stones are usually passed out of the body through urination, but in some cases, medical treatment may be needed to remove them. What are the causes? Kidney stones may be caused by: ??? A condition in which certain glands produce too much parathyroid hormone (primary hyperparathyroidism), which causes too much calcium buildup in the blood. ??? A buildup of uric acid crystals in the bladder (hyperuricosuria). Uric acid is a chemical that the body produces when you eat certain foods. It usually exits the body in the urine. ??? Narrowing (stricture) of one or both of the ureters. ??? A kidney blockage that is present at (congenital obstruction). ??? Past surgery on the kidney or the ureters, such as gastric bypass surgery. What increases the risk? The following factors may make you more likely to develop this condition: ??? Having had a kidney stone in the past. ??? Having a family history of kidney stones. ??? Not drinking enough water. ??? Eating a diet that is high in protein, salt (sodium), or sugar. ??? Being overweight or obese. What are the signs or symptoms? Symptoms of a kidney stone may include: ??? Pain in the side of the abdomen, right below the ribs (flank pain). Pain usually spreads (radiates) to the groin. ??? Needing to urinate frequently or urgently. ??? Painful urination. ??? Blood in the urine (hematuria). ??? Nausea. ??? Vomiting. ??? Fever and chills. How is this diagnosed? This condition may be diagnosed based on: ??? Your symptoms and medical history. ??? A physical exam. ??? Blood tests. ??? Urine tests. These may be done before and after the stone passes out of your body through urination. ??? Imaging tests, such as a CT scan, abdominal X-ray, or ultrasound. ??? A procedure to examine the inside of the bladder (cystoscopy). How is this treated? Treatment for kidney stones depends on the size, location, and makeup of the stones. Kidney stones will often pass out of the body through urination. You may need to: ??? Increase your fluid intake to help pass the stone. In some cases, you may be given fluids through an IV and may need to be monitored at the hospital. ??? Take medicine for pain. ??? Make changes in your diet to help prevent kidney stones from coming back. Sometimes, medical procedures are needed to remove a kidney stone. This may involve: ??? A procedure to break up kidney stones using: ??? A focused beam of light (laser therapy). ??? Shock waves (extracorporeal shock wave lithotripsy). ??? Surgery to remove kidney stones. This may be needed if you have severe pain or have stones thatblock your urinary tract. Follow these instructions at home: Medicines ??? Take jgbd-zfy-pspziem and prescription medicines only as told by your health care provider. ??? Ask your health care provider if the medicine prescribed to you requires you to avoid driving or using heavy machinery. Eating and drinking ??? Drink enough fluid to keep your urine pale yellow. You may be instructed to drink at least 8???10 glasses of water each day. This will help you pass the kidney stone. ??? If directed, change your diet. This may include: ??? Limiting how much sodium you eat. ??? Eating more fruits and vegetables. ??? Limiting how much animal protein???such as red meat, poultry, fish, and eggs???you eat. ??? Follow instructions from your health care provider about eating or drinking restrictions. General instructions ??? Collect urine samples as told by your health care provider. You may need to collect a urine sample: ??? 24 hours after you pass the stone. ??? 8???12 weeks after passing the kidney stone, and every 6???12 months after that. ??? Strain your urine every time you urinate, for as long as directed. Use the strainer that your health care provider recommends. ??? Do not throw out the kidney stone after passing it. Keep the stone so it can be tested by your health care provider. Testing the makeup of your kidney stone may help prevent you from getting kidney stones in the future. ??? Keep all follow-up visits as told by your health care provider. This is important. You may needfollow-up X-rays or ultrasounds to make sure that your stone has passed. How is this prevented? To prevent another kidney stone: ??? Drink enough fluid to keep your urine pale yellow. This is the best way to prevent kidney stones. ??? Eat a healthy diet and follow recommendations from your health care provider about foods to avoid. You may be instructed to eat a low-protein diet. Recommendations vary depending on the type of kidney stone that you have. ??? Maintain a healthy weight. Where to find more information ??? National Kidney Foundation (NKF): www.kidney.org ??? [employer] (UCF): www.urologyhealth.org Contact a health care provider if: ??? You have pain that gets worse or does not get better with medicine. Get help right away if: ??? You have a fever or chills. ??? You develop severe pain. ??? You develop new abdominal pain. ??? You faint. ??? You are unable to urinate. Summary ??? Kidney stones are solid, rock-like deposits that form inside of the kidneys. ??? Kidney stones can cause nausea, vomiting, blood in the urine, abdominal pain, and the urge to urinate frequently. ??? Treatment for kidney stones depends on the size, location, and makeup of the stones. Kidney stones will often pass out of the body through urination. ??? Kidney stones can be prevented by drinking enough fluids, eating a healthy diet, and maintaining a healthy weight. This information is not intended to replace advice given to you by your health care provider. Make sure you discuss any questions you have with your health care provider. Document Revised: 07/27/2019 Document Reviewed: 07/31/2019 Elsevier Patient Education ?? 2021 [employer] Follow Up Care 09/18/2022 20:08:28 With:Tylenol/Motrin for Pain/Fever Relief Address: When: Unknown Comments:Utilize Motrin 400-600 mg??every 6-8 hours as needed discomfort, Tylenol 1000 mg every 8 hours??as needed With:Follow-up with your primary care Address: When:1 week Comments:Follow-up with your primary care as needed, they will be able to reevaluate if necessaryReturn to ED if concerns Physician Emergency department Note * KEIRY Mensah: PERFORM Event Display: ED Note Physician Authored Date: [id number] KAREEM HOLDER :2000 Age:22 years Sex:Female Visit Date:09/18/2022 Basic Information Time Seen: KEIRY Mensah / 09/18/2022 20:11 Chief Complaint pt went to [facility] for pain ful abd and they said it was a swollen lymph node. pain traveling up inside [facility]. no imaging or labs done in [facility]. History Of Present Illness: Patient is a 22-year-old female who is 8 months? who presents to the emergency department with abdominal discomfort??primarily right lower quadrant??with some mild nausea??that has been ongoing for several days. ??She??was seen at [facility] yesterday??and??was told she had a lymphnode enlargement but no labs or??imaging were obtained. Patient has no history of abdominal surgeries??has had?? only??which she states scar is??nonerythematous and nontender??she does not have any history of hernia or other concern. Patient is having bowel movements that are normal and is urinating appropriately. Review of Systems: See HPI for details Physical Exam Vitals & Measurements T:??36.7?C ??(Temporal Artery)?? HR:??98??(Peripheral)?? RR:??18?? BP:??135/64?? SpO2:??98%?? HT:??160.000??cm?? WT:??56.00??kg?? BMI:??22.000?? Pain Score:??8?? O2 Therapy:??Room air?? Patient alert oriented age-appropriate well-nourished nontoxic Normocephalic atraumatic Neck supple nontender EOM intact, PERRLA, sclera nonicteric Clear to auscultation bilaterally Regular rate and rhythm no murmurs Abdominal exam reveals normal bowel sounds, right lower quadrant pain??with mild rebound tenderness??positive Rovsing sign, negative psoas sign Normal gait and station, normal strength all extremities Neuro exam intact without focal deficit Appropriate mood and affect Medical Decision Making: While here in the emergency department patient was evaluated and found to be in mild distress due to her discomfort, she was given IV fluids that she felt mildly dehydrated??she was given Zofran??as she feels nauseated and she was given Tylenol as she has not taken any medications prior to arrival. CT scan was employed, this was done without contrast as patient has an allergy??that she states occurred??after her ??where she received Benadryl??after becoming itchy??and not feeling well after her CAT scan.?? She has never had a reaction like this in the past however??I feel that a??nonc ontrasted scan??will be equally as effective in ruling out appendicitis Laboratory evaluation is employed and shows no acute findings CT scan reveals??ureteral dilation which is most likely from??passed stone??but there is no residual acute findings Procedure No Qualifying Data Assessment/Plan 1.??Ureteral dilatation??N28.82 Patient be discharged I discussed her the fact that??she needs to stay hydrated utilize Tylenol andMotrin and follow-up with her primary care.?? This is most likely a??passed a kidney stone and??therefore will resolve in 1 to 2 days. ??She is understanding of this and agrees with discharge plan. Orders: Discharge Patient, 09/18/22 21:55:00 EDT Patient Education Kidney Stones Follow Up With When Contact Information Tylenol/Motrin for Pain/Fever Relief Additional Instructions: Utilize Motrin 400-600 mg??every 6-8 hours as needed discomfort, Tylenol 1000 mg every 8 hours??as needed Follow-up with your primary care Within 1 week Additional Instructions: Follow-up with your primary care as needed, they will be able to reevaluate if necessary Return to ED if concerns Problem List/Past Medical History Ongoing No qualifying data Historical No qualifying data Medication Administration Given Sodium Chloride 0.9%, 1000 mL, IV Bolus acetaminophen, 1000 mg, Oral ondansetron, 4 mg, IV Push Allergies No Known Allergies Social History Electronic Cigarette/Vaping Electronic Cigarette Use: Never. Substance Use Marijuana Tobacco Never tobacco user Tobacco Use:. Diagnostic Results CT Abdomen and Pelvis w/o Contrast 09/18/2022 21:[address] Abdomen and Pelvis w/o Contrast ?? 09/18/22 20:48:06 PROCEDURE INFORMATION: Exam: CT Abdomen And Pelvis Without Contrast Exam date and time: 09/18/2022 8:48 PM Age: 22 years old Clinical indication: Abdominal pain; Additional info: Abd pain, right lower quadrant predominant ?? TECHNIQUE: Imaging protocol: Computed tomography of the abdomen and pelvis without contrast. Radiation optimization: All CT scans at this facility use at least one of these dose optimization techniques: automated exposure control; mA and/or kV adjustment per patient size (includes targeted exams where dose is matched to clinical indication); or iterative reconstruction. ?? REPORTING DATA: Count of CT and Cardiac NM exams in prior 12 months: This patient has received 0 known CTs and 0 known cardiac nuclear medicine studies in the 12 months prior to the current study. ?? COMPARISON: No relevant prior studies available. ?? FINDINGS: Liver: Normal. No mass. Gallbladder and bile ducts: Normal. No calcified stones. No ductal dilation. Pancreas: Normal. No ductal dilation. Spleen: Normal. No splenomegaly. Adrenal glands: Normal. No mass. Kidneys and ureters: Mild right periureteral fat stranding. No evidence of stones within the kidneys, ureters or bladder. Stomach and bowel: No evidence of small bowel obstruction. Appendix: Visualized portion appendix normal. ?? Intraperitoneal space: Unremarkable. No free air. No significant fluid collection. Vasculature: Unremarkable. No abdominal aortic aneurysm. Lymph nodes: Unremarkable. No enlarged lymph nodes. Urinary bladder: See???Kidneys and ureters?? finding. Reproductive: Uterus appears within normal limits. Bones/joints: Unremarkable. No acute fracture. Soft tissues: Unremarkable. ?? IMPRESSION: 1. Possible residual mild right obstructive uropathy- obstructive nephropathy related to passed renal stone and/or renal-urinary tract infection. 2. No evidence of stones within the kidneys, ureters or bladder. 3. No evidence of small bowel obstruction. ? THIS DOCUMENT HAS BEEN ELECTRONICALLY SIGNED BY VALDO CHISHOLM MD on 09/18/2022 09:22 PM ?? Signed By: Valdo Chisholm MD Lab Results CBC and Differential?? LATEST RESULTS?? WBC?? 09/18/22 20:34?? 10.4?? RBC?? 09/18/22 20:34?? 4.62?? Hgb?? 09/18/22 20:34?? 12.8?? Hct?? 09/18/22 20:34?? 38.6?? MCV?? 09/18/22 20:34?? 83.5?? MCH?? 09/18/22 20:34?? 27.7?? MCHC?? 09/18/22 20:34?? 33.2?? RDW-CV?? 09/18/22 20:34?? 13.8?? Platelets?? 09/18/22 20:34?? 360?? MPV?? 09/18/22 20:34?? 8.8?? Neutro Auto?? 09/18/22 20:34?? 66.1?? Lymph Auto?? 09/18/22 20:34?? 27.6?? [place] Auto?? 09/18/22 20:34?? 5.3?? Eos, Auto?? 09/18/22 20:34?? 0.50?? Basophil Auto?? 09/18/22 20:34?? 0.3?? Imm Gran Auto?? 09/18/22 20:34?? 0.2?? Neutro Absolute?? 09/18/22 20:34?? 6.9 ??High?? Lymph Absolute?? 09/18/22 20:34?? 2.9?? [place] Absolute?? 09/18/22 20:34?? 0.6?? Eos Absolute?? 09/18/22 20:34?? 0.0?? Baso Absolute?? 09/18/22 20:34?? 0.0?? Imm Gran Absolute?? 09/18/22 20:34?? 0.02?? Slide Review?? 09/18/22 20:34?? Not Indicated? Routine Chemistry?? LATEST RESULTS?? Sodium Level?? 09/18/22 20:34?? 134?? Potassium Level?? 09/18/22 20:34?? 3.5?? Chloride Level?? 09/18/22 20:34?? 103?? CO2?? 09/18/22 20:34?? 21 ??Low?? Alk Phos?? 09/18/22 20:34?? 70?? AST?? 09/18/22 20:34?? 20?? ALT?? 09/18/22 20:34?? 13 ??Low?? BUN?? 09/18/22 20:34?? 10?? Glucose Level?? 09/18/22 20:34?? 104?? Creatinine Level?? 09/18/22 20:34?? 0.70?? BUN/Creat Ratio?? 09/18/22 20:34?? 14.3?? eGFR CKD-EPI?? 09/18/22 20:34?? 127?? Calcium Level?? 09/18/22 20:34?? 8.8 ??Low?? Protein Total?? 09/18/22 20:34?? 7.5?? Albumin Level?? 09/18/22 20:34?? 4.4?? Globulin?? 09/18/22 20:34?? 3.1?? A/G Ratio?? 09/18/22 20:34?? 1.4?? Bilirubin Total?? 09/18/22 20:34?? 1.0?? Anion Gap?? 09/18/22 20:34?? 10.0?? Lipase Level?? 09/18/22 20:34?? 25?? Osmolality?? 09/18/22 20:34?? 268 ??Low? UA Macroscopic?? LATEST RESULTS?? Urine Srce?? 09/18/22 21:39?? Clean Catch?? UA Color?? 09/18/22 21:39?? LIGHT YELL?? UA Appear?? 09/18/22 21:39?? Clear?? UA Glucose?? 09/18/22 21:39?? Negative?? UA Bili?? 09/18/22 21:39?? Negative?? UA Ketones?? 09/18/22 21:39?? Negative?? UA Spec Grav?? 09/18/22 21:39?? <=1.005?? UA Blood?? 09/18/22 21:39?? Negative?? UA pH?? 09/18/22 21:39?? 6.00?? UA Protein?? 09/18/22 21:39?? Negative?? UA Urobilinogen?? 09/18/22 21:39?? 0.2?? UA Nitrite?? 09/18/22 21:39?? Negative?? UA Leuk Est?? 09/18/22 21:39?? Negative? Electronically Signed on 09/18/22 09:57 PM KEIRY Mensah Emergency department Discharge instructions * KEIRY Mensah: PERFORM Event Display: ED Discharge Information Authored Date: [id number] KAREEM HOLDER :2000 Age:22 years Sex:Female Visit Date:09/18/2022 Discharge Instructions We would like to thank you for allowing us to assist you with your healthcare needs. The following includes patient education materials and information regarding your injury/illness. Diagnosis from Today's Visit Ureteral dilatation Discharge Vitals Temperature??(Temporal Artery) 98.1 ??F (36.7 ??C) Heart Rate??(Peripheral) 98 Respiratory Rate?? 18 Blood Pressure?? 135/64?? Height?? 62.99 in (160.000 cm) Weight?? 123.48 lb (56.00 kg) BMI?? 22.000 Allergies No Known Allergies What to Do Next Instructions from Your Care Team As discussed you most likely passed a small kidney stone and this is now no longer an issue. ??You have some residual swelling in your ureter which is most likely residual pain. ??This is on the right side.?? There is no signs of any infection and you should utilize Tylenol and Motrin as needed This will resolve in 1 to 2 days.?? Your primary care if you have any questions or concerns You Need to Schedule the Following Appointments Follow Up with??Tylenol/Motrin for Pain/Fever Relief Why: Utilize Motrin 400-600 mg??every 6-8 hours as needed discomfort, Tylenol 1000 mg every 8 hours??as needed Follow Up with??Follow-up with your primary care When:??Within 1 week Why: Follow-up with your primary care as needed, they will be able to reevaluate if necessary Return to ED if concerns You were treated today on an emergency basis; it may be haddad to contact your primary care provider to notify them of your visit today. You may have been referred to your regular doctor or a specialist, please follow up as instructed. If your condition worsens or you can't get in to see the doctor, contact the Emergency Department. Education Materials Kidney Stones Kidney stones are solid, rock-like deposits that form inside of the kidneys. The kidneys are a pairof organs that make urine. A kidney stone may form in a kidney and move into other parts of the urinary tract, including the tubes that connect the kidneys to the bladder (ureters), the bladder, and the tube that carries urine out of the body (urethra). As the stone moves through these areas, it can cause intense pain and block the flow of urine. Kidney stones are created when high levels of certain minerals are found in the urine. The stones are usually passed out of the body through urination, but in some cases, medical treatment may be needed to remove them. What are the causes? Kidney stones may be caused by: ? A condition in which certain glands produce too much parathyroid hormone (primary hyperparathyroidism), which causes too much calcium buildup in the blood. ? A buildup of uric acid crystals in the bladder (hyperuricosuria). Uric acid is a chemical that the body produces when you eat certain foods. It usually exits the body in the urine. ? Narrowing (stricture) of one or both of the ureters. ? A kidney blockage that is present at (congenital obstruction). ? Past surgery on the kidney or the ureters, such as gastric bypass surgery. What increases the risk? The following factors may make you more likely to develop this condition: ? Having had a kidney stone in the past. ? Having a family history of kidney stones. ? Not drinking enough water. ? Eating a diet that is high in protein, salt (sodium), or sugar. ? Being overweight or obese. What are the signs or symptoms? Symptoms of a kidney stone may include: ? Pain in the side of the abdomen, right below the ribs (flank pain). Pain usually spreads (radiates)to the groin. ? Needing to urinate frequently or urgently. ? Painful urination. ? Blood in the urine (hematuria). ? Nausea. ? Vomiting. ? Fever and chills. How is this diagnosed? This condition may be diagnosed based on: ? Your symptoms and medical history. ? A physical exam. ? Blood tests. ? Urine tests. These may be done before and after the stone passes out of your body through urination. ? Imaging tests, such as a CT scan, abdominal X-ray, or ultrasound. ? A procedure to examine the inside of the bladder (cystoscopy). How is this treated? Treatment for kidney stones depends on the size, location, and makeup of the stones. Kidney stones will often pass out of the body through urination. You may need to: ? Increase your fluid intake to help pass the stone. In some cases, you may be given fluids through an IV and may need to be monitored at the hospital. ? Take medicine for pain. ? Make changes in your diet to help prevent kidney stones from coming back. Sometimes, medical procedures are needed to remove a kidney stone. This may involve: ? A procedure to break up kidney stones using: ? A focused beam of light (laser therapy). ? Shock waves (extracorporeal shock wave lithotripsy). ? Surgery to remove kidney stones. This may be needed if you have severe pain or have stones that block your urinary tract. Follow these instructions at home: Medicines ? Take [id number] and prescription medicines only as told by your health care provider. ? Ask your health care provider if the medicine prescribed to you requires you to avoid driving or using heavy machinery. Eating and drinking ? Drink enough fluid to keep your urine pale yellow. You may be instructed to drink at least 8???10 glasses of water each day. This will help you pass the kidney stone. ? If directed, change your diet. This may include: ? Limiting how much sodium you eat. ? Eating more fruits and vegetables. ? Limiting how much animal protein???such as red meat, poultry, fish, and eggs???you eat. ? Follow instructions from your health care provider about eating or drinking restrictions. General instructions ? Collect urine samples as told by your health care provider. You may need to collect a urine sample: ? 24 hours after you pass the stone. ? 8???12 weeks after passing the kidney stone, and every 6???12 months after that. ? Strain your urine every time you urinate, for as long as directed. Use the strainer that your health care provider recommends. ? Do not throw out the kidney stone after passing it. Keep the stone so it can be tested by your health care provider. Testing the makeup of your kidney stone may help prevent you from getting kidney stones in the future. ? Keep all follow-up visits as told by your health care provider. This is important. You may need follow-up X-rays or ultrasounds to make sure that your stone has passed. How is this prevented? To prevent another kidney stone: ? Drink enough fluid to keep your urine pale yellow. This is the best way to prevent kidney stones. ? Eat a healthy diet and follow recommendations from your health care provider about foods to avoid. You may be instructed to eat a low-protein diet. Recommendations vary depending on the type of kidney stone that you have. ? Maintain a healthy weight. Where to find more information ? National Kidney Foundation (NKF): www.kidney.org ? [facility] ([facility]): www.urologyhealth.org Contact a health care provider if: ? You have pain that gets worse or does not get better with medicine. Get help right away if: ? You have a fever or chills. ? You develop severe pain. ? You develop new abdominal pain. ? You faint. ? You are unable to urinate. Summary ? Kidney stones are solid, rock-like deposits that form inside of the kidneys. ? Kidney stones can cause nausea, vomiting, blood in the urine, abdominal pain, and the urge to urinate frequently. ? Treatment for kidney stones depends on the size, location, and makeup of the stones. Kidney stones will often pass out of the body through urination. ? Kidney stones can be prevented by drinking enough fluids, eating a healthy diet, and maintaining a healthy weight. This information is not intended to replace advice given to you by your health care provider. Make sure you discuss any questions you have with your health care provider. Document Revised: 07/27/2019 Document Reviewed: 07/31/2019 [employer] Patient Education ?? 2021 [employer] Tests Performed Radiology CT Abdomen and Pelvis w/o Contrast 09/18/2022 21:22 EDT Medications and Immunizations Administered Given Sodium Chloride 0.9%, 1000 mL, IV Bolus acetaminophen, 1000 mg, Oral ondansetron, 4 mg, IV Push Lab Test Name Test Result Date/Time WBC 10.4 K/mcL 09/18/2022 20:34 EDT RBC 4.62 Million/mcL 09/18/2022 20:34 EDT Hgb 12.8 g/dL 09/18/2022 20:34 EDT Hct 38.6 % 09/18/2022 20:34 EDT MCV 83.5 fL 09/18/2022 20:34 EDT MCH 27.7 pg 09/18/2022 20:34 EDT MCHC 33.2 g/dL 09/18/2022 20:34 EDT RDW-CV 13.8 % 09/18/2022 20:34 EDT Platelets 360 K/mcL 09/18/2022 20:34 EDT MPV 8.8 fL 09/18/2022 20:34 EDT Neutro Auto 66.1 % 09/18/2022 20:34 EDT Lymph Auto 27.6 % 09/18/2022 20:34 EDT [place] Auto 5.3 % 09/18/2022 20:34 EDT Eos, Auto 0.50 % 09/18/2022 20:34 EDT Basophil Auto 0.3 % 09/18/2022 20:34 EDT Imm Gran Auto 0.2 % 09/18/2022 20:34 EDT Neutro Absolute 6.9 K/mcL 09/18/2022 20:34 EDT Lymph Absolute 2.9 K/mcL 09/18/2022 20:34 EDT [place] Absolute 0.6 K/mcL 09/18/2022 20:34 EDT Eos Absolute 0.0 K/mcL 09/18/2022 20:34 EDT Baso Absolute 0.0 K/mcL 09/18/2022 20:34 EDT Imm Gran Absolute 0.02 09/18/2022 20:34 EDT Slide Review Not Indicated 09/18/2022 20:34 EDT Sodium Level 134 mmol/L 09/18/2022 20:34 EDT Potassium Level 3.5 mmol/L 09/18/2022 20:34 EDT Chloride Level 103 mmol/L 09/18/2022 20:34 EDT CO2 21 mmol/L 09/18/2022 20:34 EDT Alk Phos 70 IntlUnit/L 09/18/2022 20:34 EDT AST 20 IntlUnit/L 09/18/2022 20:34 EDT ALT 13 IntlUnit/L 09/18/2022 20:34 EDT BUN 10 mg/dL 09/18/2022 20:34 EDT Glucose Level 104 mg/dL 09/18/2022 20:34 EDT Creatinine Level 0.70 mg/dL 09/18/2022 20:34 EDT BUN/Creat Ratio 14.3 09/18/2022 20:34 EDT eGFR CKD-EPI 127 mL/min/1.73 m2 09/18/2022 20:34 EDT Calcium Level 8.8 mg/dL 09/18/2022 20:34 EDT Protein Total 7.5 g/dL 09/18/2022 20:34 EDT Albumin Level 4.4 g/dL 09/18/2022 20:34 EDT Globulin 3.1 09/18/2022 20:34 EDT A/G Ratio 1.4 09/18/2022 20:34 EDT Bilirubin Total 1.0 mg/dL 09/18/2022 20:34 EDT Anion Gap 10.0 09/18/2022 20:34 EDT Lipase Level 25 unit/L 09/18/2022 20:34 EDT Osmolality 268 mOsm/kg 09/18/2022 20:34 EDT Urine Srce Clean Catch 09/18/2022 21:39 EDT UA Color LIGHT YELL 09/18/2022 21:39 EDT UA Appear CLEAR. 09/18/2022 21:39 EDT UA Glucose NEGATIVE 09/18/2022 21:39 EDT UA Bili NEGATIVE 09/18/2022 21:39 EDT UA Ketones NEGATIVE 09/18/2022 21:39 EDT UA Spec Grav <=1.005 09/18/2022 21:39 EDT UA Blood NEGATIVE 09/18/2022 21:39 EDT UA pH 6.00 09/18/2022 21:39 EDT UA Protein NEGATIVE 09/18/2022 21:39 EDT UA Urobilinogen 0.2 09/18/2022 21:39 EDT UA Nitrite NEGATIVE 09/18/2022 21:39 EDT UA Leuk Est NEGATIVE 09/18/2022 21:39 EDT Patient/Slot Floorperson Signature Patient Name:KAREEM HOLDER I have received this information and my questions have been answered. Patient/Slot Floorperson Name: Patient/Slot Floorperson Signature: Relationship to Patient: Witness Name/Signature: Date: Electronically Signed on: 09/18/2022 21:57 EDTSigned by: Patient Care team information Care Team Personnel Name: KEIRY Mensah Position: Physician Member Role: Physician Sort Line Worker Address: Address: [address] [place] [id number] Name: Abi Cast Position: Nurse Member Role: ED Nurse
--- OUTSIDE RECORDS SUMMARY | 2022-10-28 12:23 | XMS_ITS | Continuity of Care Document ---
Author Name Unknown Organization [facility] Address [address] [place] [address] Encounter LTTL_OR FIN NBR [id number] Date(s): 09/21/22 - 09/21/22 [facility] [address] [place], [place] [address] Encounter Diagnosis Bilateral pulmonary embolism(Discharge Diagnosis) - 09/21/22 Discharge Disposition: Home f/u Internal Provider Attending Physician: Floyd Lemus MD Admitting Physician: Floyd Lemus MD Allergies, Adverse Reactions, Alerts Substance Reaction Severity Status penicillin Hives Moderate Active contrast media (iodine-based) Hives Moderate Active Functional Status 09/21/22 Other exposure to Infectious Disease Non e Medications albuterol 0 Refill(s) Start Date: 09/20/22 Status: Ordered Eliquis Starter Pack for Treatment of DVT and PE 5 mg oral tablet See Instructions, as directed on package labeling, # 74 EA, 0 Refill(s), Pharmacy: [facility] #[id number], 162, cm, 09/21/22 18:24:00 EDT, Height/Length Dosing, 56, kg, 09/21/22 18:24:00 EDT, Weight Dosing Start Date: 09/21/22 Status: Ordered Mental Status 09/21/22 Eye Opening Response Terence Spontaneous ly Best Verbal Response Terence Oriented Best Motor Response Stanwood Obeys comman ds Stanwood Coma Score 15 Problem List Condition Confirmation Course Effective Dates Status Health St atus Informant Bilateral pulmonary embolism Confirmed Active Results Laboratory List Name Date Test Urine Qual 09/21/22 Urinalysis Microscopic 09/21/22 Urinalysis with Micro if Indicated and C ulture if Indicated 09/21/22 D-Dimer 09/21/22 CBC w/ Diff 09/21/22 Comprehensive Metabolic Panel (CMP) 09/21 Automated Diff 09/21/22 Most recent to oldest [Reference Range]: 1 WBC [4.8-10.8 K/mcL] 10.5 K/mcL (09/21/22 6:15 PM) RBC [4.20-5.40 Million/mcL] 4.92 Million /mcL (09/21/22 6:15 PM) Neutro Auto [42.2-75.2 %] 72.4 % (09/21/22 6:15 PM) Lymph Auto [20.5-51.1 %] 21.6 % (09/21/22 6:15 PM) Colbert Auto [1.7-9.3 %] 4.9 % (09/21/22 6:15 PM) Basophil Auto [0.0-0.8 %] 0.4 % (09/21/22 6:15 PM) BUN [8-26 mg/dL] 9 mg/dL (09/21/22 6:15 PM) UA Color [Yellow] Yellow (09/21/22 6:38 PM) UA WBC [0-3] 0-3 (09/21/22 6:38 PM) Glucose Level [74-106 mg/dL] 100 mg/dL (09/21/22 6:15 PM) Potassium Level [3.5-5.1 mmol/L] 3.6 mmo l/L (09/21/22 6:15 PM) Baso Absolute [0.0-0.2 K/mcL] 0.0 K/mcL (09/21/22 6:15 PM) MCV [81.0-99.0 fL] 85.2 fL (09/21/22 6:15 PM) UA Urobilinogen [0.2] 0.2 (09/21/22 6:38 PM) UA Bili [Negative] Negative (09/21/22 6:38 PM) UA Ketones >=80 mg/dL *NA* (09/21/22 6:38 PM) AST [15-41 IntlUnit/L] 19 IntlUnit/L (09/21/22 6:15 PM) ALT [14-54 IntlUnit/L] 14 IntlUnit/L (09/21/22 6:15 PM) MCHC [32.0-36.0 g/dL] 32.9 g/dL (09/21/22 6:15 PM) Osmolality [275-295 mOsm/kg] 276 mOsm/kg (09/21/22 6:15 PM) Sodium Level [134-143 mmol/L] 139 mmol/L (09/21/22 6:15 PM) UA RBC [0-3] 10-25 *ABN* (09/21/22 6:38 PM) UA Leuk Est [Negative] Trace *ABN* (09/21/22 6:38 PM) Lymph Absolute [1.2-3.4 K/mcL] 2.3 K/mcL (09/21/22 6:15 PM) UA Nitrite [Negative] Negative (09/21/22 6:38 PM) UA Glucose [Negative] Negative (09/21/22 6:38 PM) Hct [37.0-47.0 %] 41.9 % (09/21/22 6:15 PM) UA Bacteria Rare *NA* (09/21/22 6:38 PM) Calcium Level [8.9-10.3 mg/dL] 9.5 mg/dL (09/21/22 6:15 PM) Colbert Absolute [0.1-0.6 K/mcL] 0.5 K/mcL (09/21/22 6:15 PM) Albumin Level [3.5-5.0 g/dL] 4.9 g/dL (09/21/22 6:15 PM) Protein Total [6.5-8.1 g/dL] 8.5 g/dL *HI* (09/21/22 6:15 PM) UA Protein [Negative] Negative (09/21/22 6:38 PM) MCH [27.0-31.0 pg] 28.0 pg (09/21/22 6:15 PM) Neutro Absolute [1.4-6.5 K/mcL] 7.6 K/mc L *HI* (09/21/22 6:15 PM) Bilirubin Total [0.2-1.2 mg/dL] 1.3 mg/d L *HI* (09/21/22 6:15 PM) Hgb [12.0-16.0 g/dL] 13.8 g/dL (09/21/22 6:15 PM) Alk Phos [38-130 IntlUnit/L] 71 IntlUnit /L (09/21/22 6:15 PM) UA Blood [Negative] Large *ABN* (09/21/22 6:38 PM) MPV [7.4-10.4 fL] 8.6 fL (09/21/22 6:15 PM) UA Spec Grav 1.020 *NA* (09/21/22 6:38 PM) Platelets [130-400 K/mcL] 364 K/mcL (09/21/22 6:15 PM) CO2 [22-32 mmol/L] 23 mmol/L (09/21/22 6:15 PM) Eos Absolute [0.0-0.2 K/mcL] 0.0 K/mcL (09/21/22 6:15 PM) UA Squam Epithelial [0-3] 0-3 (09/21/22 6:38 PM) UA pH 6.00 *NA* (09/21/22 6:38 PM) UA Appear [Clear] Clear (09/21/22 6:38 PM) Chloride Level [98-111 mmol/L] 107 mmol/ L (09/21/22 6:15 PM) RDW-CV [11.5-14.5 %] 13.8 % (09/21/22 6:15 PM) A/G Ratio 1.4 *NA* (09/21/22 6:15 PM) BUN/Creat Ratio [8.0-20.0] 13.2 (09/21/22 6:15 PM) Globulin 3.6 *NA* (09/21/22 6:15 PM) Imm Gran Absolute 0.03 *NA* (09/21/22 6:15 PM) Imm Gran Auto [0.0-0.5 %] 0.3 % (09/21/22 6:15 PM) Slide Review Not Indicated (09/21/22 6:15 PM) UA Culture Ind?. [No] No (09/21/22 6:38 PM) Urine Srce Clean Catch (09/21/22 6:38 PM) Creatinine Level [0.44-1.00 mg/dL] 0.68 mg/dL (09/21/22 6:15 PM) Anion Gap [3.0-12.0] 9.0 (09/21/22 6:15 PM) D Dimer, (Quant.) [<=500 ng/mL] 1209 ng/ mL 1 *HI* (09/21/22 6:25 PM) Eos, Auto [0.00-3.00 %] 0.40 % (09/21/22 6:15 PM) U hCG Ql [Negative] Negative (09/21/22 6:38 PM) eGFR CKD-EPI [>=60 mL/min/1.73 m2] 128 m L/min/1.73 m2 (09/21/22 6:15 PM) 1Interpretive Data: A normal D-dimer result (< or =500 ng/mL FEU) has a negative predicitive value of approximately 95% for the exclusion of acute embolism (PE) or deep vein thrombosis when there is low or moderate pretest PE probability. Radiology Reports * Exam Date Time Procedure Performing Provider Status 09/21/22 8:[address] Angio Chest Tono Monreal ed Notes: (CT Angio Chest) Reason For Exam: palp, elevated ddimer CT Angio Chest ADDENDUM THIS REPORT CONTAINS FINDINGS THAT MAY BE CRITICAL TO PATIENT CARE. The findings were verbally communicated via telephone conference with INEZ PARNELL at 9:50 PM EDT on 09/21/2022. The findings were acknowledged and understood. THIS DOCUMENT HAS BEEN ELECTRONICALLY SIGNED BY SAMIRA MEDINA MD on 09/21/2022 09:50 PM Final Signed by: Samira Medina MD Signed (Electronic Signature): 09/21/2022 9:[address] Angio Chest PROCEDURE INFORMATION: Exam: CTA Chest With Contrast Exam date and time: 09/21/2022 8:00 PM Age: 22 years old Clinical indication: Other: Palp elevated d dimer; Additional info: Palp, elevated ddimer TECHNIQUE: Imaging protocol: Computed tomographic angiography of the chest with contrast. Exam focused on the arteries. 3D rendering (Not supervised by radiologist): MIP and/or 3D reconstructed images were created by the technologist. Radiation optimization: All CT scans at this facility use at least one of these dose optimization techniques: automated exposure control; mA and/or kV adjustment per patient size (includes targeted exams where dose is matched to clinical indication); or iterative reconstruction. Contrast material: ISOVUE 370; Contrast volume: 100 ml; Contrast route: INTRAVENOUS (IV); REPORTING DATA: Count of CT and Cardiac NM exams in prior 12 months: This patient has received [address] and 0 known cardiac nuclear medicine studies in the 12 months prior to the current study. COMPARISON: CT ABD/PELVIS WO CONTRAST 09/18/2022 8:48 PM FINDINGS: Pulmonary arteries: There are pulmonary emboli seen within the lower lobes bilaterally. Within the left lower lobe these are seen on series 4, image 71, and 85 as well as on other images. Aorta: Unremarkable. No aortic aneurysm. No aortic dissection. Lungs: No consolidation. Pleural spaces: Unremarkable. No pneumothorax. No pleural effusion. Heart: No cardiomegaly. No pericardial effusion. No right ventricular dysfunction. The RV/LV ratio equals 0.7. Mediastinal space: There is increased soft tissue density within the anterior mediastinum compatible with thymic tissue. Lymph nodes: Unremarkable. No enlarged lymph nodes. Bones/joints: Unremarkable for age. No acute fracture. Soft tissues: Unremarkable. IMPRESSION: 1. Findings compatible with bilateral lower lobe pulmonary emboli. 2. No evidence of right ventricular strain. 498 images. THIS DOCUMENT HAS BEEN ELECTRONICALLY SIGNED BY SAMIRA MEDINA MD on 09/21/2022 09:36 PM Final Signed by: Samira Medina MD Signed (Electronic Signature): 09/21/2022 9:36 pm Vital Signs Most recent to oldest [Reference Range]: 1 Temperature Temporal Artery [36-38 Deg C ] 36.8 Deg C (09/21/22 5:59 PM) Peripheral Pulse Rate [60-100 bpm] 91 bp m (09/21/22 5:59 PM) Respiratory Rate [12-24 br/min] 18 br/mi n (09/21/22 5:59 PM) Blood Pressure [90-140/60-90 mmHg] 160/7 7mmHg *HI* (09/21/22 5:59 PM) Weight Dosing 56.00 kg (09/21/22 6:24 PM) Weight Estimated 56.00 kg (09/21/22 5:59 PM) Height/Length Dosing 162.000 cm (09/21/22 6:24 PM) Height/Length Estimated 162.000 cm (09/21/22 5:59 PM) Social History Social History Type Response Tobacco Never tobacco user T obacco Use:. Sex Hospital Discharge Instructions Patient Education 09/21/2022 20:55:05 Pulmonary Embolism Pulmonary Embolism A pulmonary embolism (PE) is a sudden blockage or decrease of blood flow in one or both lungs that happens when a clot travels into the arteries of the lung (pulmonary arteries). Most blockages come from a blood clot that forms in the vein of a leg or arm (deep vein thrombosis, DVT) and travels to the lungs. A clot is blood that has thickened into a gel or solid. PE is a dangerous and life-threatening condition that needs to be treated right away. What are the causes? This condition is usually caused by a blood clot that forms in a vein and moves to the lungs. In rare cases, it may be caused by air, fat, part of a tumor, or other tissue that moves through the veins and into the lungs. What increases the risk? The following factors may make you more likely to develop this condition: ??? Experiencing a traumatic injury, such as breaking a hip or leg. ??? Having: ??? A spinal cord injury. ??? Major surgery, especially hip or knee replacement, or surgery on parts of the nervous system oron the abdomen. ??? A stroke. ??? A blood-clotting disease. ??? Long-term (chronic) lung or heart disease. ??? Cancer, especially if you are being treated with chemotherapy. ??? A central venous catheter. ??? Taking medicines that contain estrogen. These include control pills and hormone replacement therapy. ??? Being: ??? . ??? In the period of time after your baby is delivered (). ??? Older than age 60. ??? Overweight. ??? A smoker, especially if you have other risks. ??? Not very active (sedentary), not being able to move at all, or spending long periods sitting, such as travel over 6 hours. You are also at a greater risk if you have a leg in a cast or splint. What are the signs or symptoms? Symptoms of this condition usually start suddenly and include: ??? Shortness of breath during activity or at rest. ??? Coughing, coughing up blood, or coughing up bloody mucus. ??? Chest pain, back pain, or shoulder blade pain that gets worse with deep breaths. ??? Rapid or irregular heartbeat. ??? Feeling light-headed or dizzy, or fainting. ??? Feeling anxious. ??? Pain and swelling in a leg. This is a symptom of DVT, which can lead to PE. How is this diagnosed? This condition may be diagnosed based on your medical history, a physical exam, and tests. Tests may include: ??? Blood tests. ??? An ECG (electrocardiogram) of the heart. ??? A CT pulmonary angiogram. This test checks blood flow in and around your lungs. ??? A ventilation???perfusion scan, also called a lung VQ scan. This test measures air flow and blood flow to the lungs. ??? An ultrasound to check for a DVT. How is this treated? Treatment for this condition depends on many factors, such as the cause of your PE, your risk for bleeding or developing more clots, and other medical conditions you may have. Treatment aims to stop blood clots from forming or growing larger. In some cases, treatment may be aimed at breaking apart or removing the blood clot. Treatment may include: ??? Medicines, such as: ??? Blood thinning medicines, also called anticoagulants, to stop clots from forming and growing. ??? Medicines that break apart clots (fibrinolytics). ??? Procedures, such as: ??? Using a flexible tube to remove a blood clot (embolectomy) or to deliver medicine to destroy it(catheter-directed thrombolysis). ??? Surgery to remove the clot (surgical embolectomy). This is rare. You may need a combination of immediate, long-term, and extended treatments. Your treatment may continue for several months (maintenance therapy) or longer depending on your medical conditions. You and your health care provider will work together to choose the treatment program that is best for you. Follow these instructions at home: Medicines ??? Take [id number] and prescription medicines only as told by your health care provider. ??? If you are taking blood thinners: ??? Talk with your health care provider before you take any medicines that contain aspirin or NSAIDs, such as ibuprofen. These medicines increase your risk for dangerous bleeding. ??? Take your medicine exactly as told, at the same time every day. ??? Avoid activities that could cause injury or bruising, and follow instructions about how to prevent falls. ??? Wear a medical alert bracelet or carry a card that lists what medicines you take. ??? Understand what foods and drugs interact with any medicines that you are taking. General instructions ??? Ask your health care provider when you may return to your normal activities. Avoid sitting or lying for a long time without moving. ??? Maintain a healthy weight. Ask your health care provider what weight is healthy for you. ??? Do not use any products that contain nicotine or tobacco. These products include cigarettes, chewing tobacco, and vaping devices, such as e-cigarettes. If you need help quitting, ask your health care provider. ??? Talk with your health care provider about any travel plans. It is important to make sure that you are still able to take your medicine while traveling. ??? Keep all follow-up visits. This is important. Where to find more information ??? [place] [employer]: www.lung.org ??? Centers for Disease Control and Prevention: www.cdc.gov Contact a health care provider if: ??? You missed a dose of your blood thinner medicine. ??? You have a fever. Get help right away if: ??? You have: ??? New or increased pain, swelling, warmth, or redness in an arm or leg. ??? Shortness of breath that gets worse during activity or at rest. ??? Worsening chest pain. ??? A rapid or irregular heartbeat. ??? A severe headache. ??? Vision changes. ??? A serious fall or accident, or you hit your head. ??? Blood in your vomit, stool, or urine. ??? A cut that will not stop bleeding. ??? You cough up blood. ??? You feel light-headed or dizzy, and that feeling does not go away. ??? You cannot move your arms or legs. ??? You are confused or have memory loss. These symptoms may represent a serious problem that is an emergency. Do not wait to see if the symptoms will go away. Get medical help right away. Call your local emergency services (911 in the [place] Do not drive yourself to the hospital. Summary ??? A pulmonary embolism (PE) is a serious and potentially life-threatening condition. It happens when a blood clot from one part of the body travels to the arteries of the lung, causing a sudden blockage or decrease of blood flow to the lungs. This may result in shortness of breath, chest pain, dizziness, and fainting. ??? Treatments for this condition usually include medicines to thin your blood (anticoagulants) or medicines to break apart blood clots. ??? If you are given blood thinners, take your medicine exactly as told by your health care provider, at the same time every day. This is important. ??? Understand what foods and drugs interact with any medicines that you are taking. ??? If you have signs of PE or DVT, call your local emergency services (911 in the [place] This information is not intended to replace advice given to you by your health care provider. Make sure you discuss any questions you have with your health care provider. Document Revised: 02/13/2021 Document Reviewed: 02/13/2021 [employer] Patient Education ?? 2021 [employer]. Follow Up Care 09/21/2022 17:59:04 With:Follow up with primary care provider Address: When:24 Hours Comments:Keep your scheduled follow-up appointment??with your primary care provider Discharge instructions * Event Display: Discharge Instructions Physician Emergency department Note * Inez Parnell APRN: PERFORM Event Display: ED Note Physician Authored Date: [id number] KAREEM HOLDER :2000 Age:22 years Sex:Female Visit Date:09/21/2022 Basic Information Time Seen: Inez Parnell APRN / 09/21/2022 18:01 Chief Complaint pt reports heart palpitations, nausea, SOB for several days. 8 months ago. anxiety History Of Present Illness: Very anxious??22-year-old??who has had multiple visits??for mostly complaints of??abdominal pain. ??She has had CT imaging and ultrasound of the abdomen with no??explanation for her symptoms tonight she presents??with complaints of shortness of breath palpitations??anxiety??and cough.?? She states she has had the symptoms for several days now and that her chest feels like it is burning.?? She states she is afraid to take a deep breath because when she does it??starts her coughing. Review of Systems: Constitutional:?No??fevers,?No??chills,?No??sweats Eye:?No??recent visual problems ENT:?No??ear pain,?No??nasal congestion,?No??sore throat Respiratory:?Positive for??shortness of breath,?Positive for??cough Cardiovascular:?Positive for??Chest burning,?Positive for??palpitations,?No??syncope Gastrointestinal:?Nonausea,?No??vomiting,?No??diarrhea Genitourinary:?No??hematuria Art/Lymph:?No??bruising tendency,?No??swollen lymph glands Endocrine:?No??excessive thirst,??No??excessive hunger Musculoskeletal:??No??back pain,??No??neck pain,??No??joint pain,??No??muscle pain,??No??decreased range of motion Integumentary:?No??rash,?No??pruritus,?No??abrasions Neurologic: Alert & oriented X 4 Psychiatric:?Positive for??anxiety,?No??depression Physical Exam Vitals & Measurements T:??36.8?C ??(Temporal Artery)?? HR:??91??(Peripheral)?? RR:??18?? BP:??160/77?? SpO2:??100%?? HT:??162.000??cm?? WT:??56.00??kg??(Estimated)?? O2 Therapy:??Room air?? General: Alert and oriented, well nourished,?Mild??acute distress, anxiety Eye: PERRL, EOMI,?Normal?conjunctiva HENT: Normocephalic,?Normal? hearing, moist oral mucosa,?No??scleral icterus,?No??sinustenderness Neck: Supple, non-tender,?? Lungs:??Clear to auscultation?? Respiration:??Non-Labored Heart:?Normal? rate,?Regular??rhythm,?No??murmur,?No??edema Abdomen: Soft, right lower quadrant??tender, non-distended,?Normal? bowel sounds,?No??masses Musculoskeletal:?Normal? range of motion and strength,?No??tenderness,?No??swelling Skin: Skin is warm, dry and pink,?No??rashes,?No??lesions Neurologic: Awake, alert and oriented X4, Psychiatric: Cooperative,??extremely anxious??mood and affect Medical Decision Making: Is a 22-year-old female patient??status post 8 months ago not breast- feeding??who returnsto the emergency department in the??fourth visit this week for??generalized complaints??mostly of her abdomen??but is also reporting palpitations shortness of breath??difficulty taking a deep breath because it initiates cough.?? She denies any??unilateral leg swelling or calf tenderness??she said no history of blood clots.?? I am going to do routine lab??with a D-dimer as a pulmonary embolism is high on my list of differentials at this time.?? I have reviewed her record and previous imaging??and her abdominal exam??at this time appears benign.?? I do not see a reason to repeat imaging on her abdomen.?? Labs are reviewed and her D-dimer is elevated at 1200 so I think it is worth pursuing a CT angio of her chest.?? She tells me she is allergic to IV contrast??so she will be premedicated with IV Solu-Medrol and Benadryl.?? She completed her test and tolerated??the??contrast with no adverse reaction or??allergic reaction as she has in the past.?? Critical findings were communicated by radiology??that included bilateral pulmonary embolism with no evidence of right heart strain.?? Her vital signs are stable and she is oxygenating 100% on room air.?? She will be initiated on Eliquis for P E??treatment??we have administered 10 mg tonight and dispense 10 mg for home use tomorrow.?? She has a appointment with her primary care provider at 240 which she was advised to keep for close follow-up??and recommendations for further outpatient??work-up of her bilateral pulmonary embolism.?? She was given a prescription??starter pack??and further??prescriptions??as directed by??primary care provider.?? She is stable and safe for discharge to home for outpatient??treatment. ??This has been reviewed with her??and she was advised strongly to keep her follow-up appointment tomorrow return sooner for new or worsening symptoms Procedure No Qualifying Data Assessment/Plan 1.??Bilateral pulmonary embolism??I26.99 Ordered: Eliquis Starter Pack for Treatment of DVT and PE 5 mg oral tablet, See Instructions, as directed onpackage labeling, # 74 EA, 0 Refill(s), Pharmacy: [id number], 162, cm, 09/21/22 18:24:00 EDT,Height/Length Dosing, 56, kg, 09/21/22 18:24:00 EDT, Weight Dosing ?? Patient Discharge Condition stable Discharge Disposition home Patient Education Pulmonary Embolism Follow Up With When Contact Information Follow up with primary care provider Within 24 Hours Additional Instructions: Keep your scheduled follow-up appointment??with your primary care provider Medication Reconciliation New Prescription apixaban (Eliquis Starter Pack for Treatment of DVT and PE 5 mg oral tablet)as directed on package labeling. Refills: 0. ?? Unchanged albuterol Problem List/Past Medical History Ongoing Bilateral pulmonary embolism Historical No qualifying data Medication Administration Given Sodium Chloride 0.9%, 1000 mL, IV Bolus acetaminophen, 1000 mg, Oral Benadryl, 50 mg, IV Push Eliquis, 10 mg, Oral. For: Bilateral pulmonary embolism Eliquis, 10 mg, Oral. For: Bilateral pulmonary embolism methylPREDNISolone, 125 mg, IV Push Allergies contrast media (iodine-based)??(Hives) penicillin??(Hives) Social History Electronic Cigarette/Vaping Electronic Cigarette Use: Never. Substance Use Marijuana Tobacco Never tobacco user Tobacco Use:. Diagnostic Results CT Angio Chest 09/21/2022 21:[address] Angio Chest ?? 09/21/22 20:00:44 PROCEDURE INFORMATION: Exam: CTA Chest With Contrast Exam date and time: 09/21/2022 8:00 PM Age: 22 years old Clinical indication: Other: Palp elevated d dimer; Additional info: Palp, elevated ddimer ?? TECHNIQUE: Imaging protocol: Computed tomographic angiography of the chest with contrast. Exam focused on the arteries. 3D rendering (Not supervised by radiologist): MIP and/or 3D reconstructed images were created by the technologist. Radiation optimization: All CT scans at this facility use at least one of these dose optimization techniques: automated exposure control; mA and/or kV adjustment per patient size (includes targeted exams where dose is matched to clinical indication); or iterative reconstruction. Contrast material: ISOVUE 370; Contrast volume: 100 ml; Contrast route: INTRAVENOUS (IV); ?? REPORTING DATA: Count of CT and Cardiac NM exams in prior 12 months: This patient has received [address] and 0 known cardiac nuclear medicine studies in the 12 months prior to the current study. ?? COMPARISON: CT ABD/PELVIS WO CONTRAST 09/18/2022 8:48 PM ?? FINDINGS: Pulmonary arteries: There are pulmonary emboli seen within the lower lobes bilaterally. Within the left lower lobe these are seen on series 4, image 71, and 85 as well as on other images. Aorta: Unremarkable. No aortic aneurysm. No aortic dissection. ?? Lungs: No consolidation. Pleural spaces: Unremarkable. No pneumothorax. No pleural effusion. Heart: No cardiomegaly. No pericardial effusion. No right ventricular dysfunction. The RV/LV ratio equals 0.7. Mediastinal space: There is increased soft tissue density within the anterior mediastinum compatible with thymic tissue. Lymph nodes: Unremarkable. No enlarged lymph nodes. ?? Bones/joints: Unremarkable for age. No acute fracture. Soft tissues: Unremarkable. ?? IMPRESSION: 1. Findings compatible with bilateral lower lobe pulmonary emboli. 2. No evidence of right ventricular strain. ?? 498 images. ? THIS DOCUMENT HAS BEEN ELECTRONICALLY SIGNED BY SAMIRA MEDINA MD on 09/21/2022 09:36 PM ?? Signed By: Samira Medina MD ?? 09/21/22 20:00:44 ADDENDUM THIS REPORT CONTAINS FINDINGS THAT MAY BE CRITICAL TO PATIENT CARE. The findings were verbally communicated via telephone conference with INEZ PARNELL at 9:50 PM EDT on 09/21/2022. The findings were acknowledged and understood. ?? THIS DOCUMENT HAS BEEN ELECTRONICALLY SIGNED BY SAMIRA MEDINA MD on 09/21/2022 09:50 PM ?? Signed By: Samira Medina MD Lab Results CBC and Differential?? LATEST RESULTS?? HISTORICAL RESULTS?? WBC?? 09/21/22 18:15?? 10.5?? 09/18/22?? 10.4?? RBC?? 09/21/22 18:15?? 4.92?? 09/18/22?? 4.62?? Hgb?? 09/21/22 18:15?? 13.8?? 09/18/22?? 12.8?? Hct?? 09/21/22 18:15?? 41.9?? 09/18/22?? 38.6?? MCV?? 09/21/22 18:15?? 85.2?? 09/18/22?? 83.5?? MCH?? 09/21/22 18:15?? 28.0?? 09/18/22?? 27.7?? MCHC?? 09/21/22 18:15?? 32.9?? 09/18/22?? 33.2?? RDW-CV?? 09/21/22 18:15?? 13.8?? 09/18/22?? 13.8?? Platelets?? 09/21/22 18:15?? 364?? 09/18/22?? 360?? MPV?? 09/21/22 18:15?? 8.6?? 09/18/22?? 8.8?? Neutro Auto?? 09/21/22 18:15?? 72.4?? 09/18/22?? 66.1?? Lymph Auto?? 09/21/22 18:15?? 21.6?? 09/18/22?? 27.6?? Colbert Auto?? 09/21/22 18:15?? 4.9?? 09/18/22?? 5.3?? Eos, Auto?? 09/21/22 18:15?? 0.40?? 09/18/22?? 0.50?? Basophil Auto?? 09/21/22 18:15?? 0.4?? 09/18/22?? 0.3?? Imm Gran Auto?? 09/21/22 18:15?? 0.3?? 09/18/22?? 0.2?? Neutro Absolute?? 09/21/22 18:15?? 7.6 ??High?? 09/18/22?? 6.9 ??High?? Lymph Absolute?? 09/21/22 18:15?? 2.3?? 09/18/22?? 2.9?? Colbert Absolute?? 09/21/22 18:15?? 0.5?? 09/18/22?? 0.6?? Eos Absolute?? 09/21/22 18:15?? 0.0?? 09/18/22?? 0.0?? Baso Absolute?? 09/21/22 18:15?? 0.0?? 09/18/22?? 0.0?? Imm Gran Absolute?? 09/21/22 18:15?? 0.03?? 09/18/22?? 0.02?? Slide Review?? 09/21/22 18:15?? Not Indicated?? 09/18/22?? Not Indicated? Coagulation?? LATEST RESULTS?? D Dimer, (Quant.)?? 09/21/22 18:25?? 1209 ??High? Routine Chemistry?? LATEST RESULTS?? HISTORICAL RESULTS?? Sodium Level?? 09/21/22 18:15?? 139?? 09/18/22?? 134?? Potassium Level?? 09/21/22 18:15?? 3.6?? 09/18/22?? 3.5?? Chloride Level?? 09/21/22 18:15?? 107?? 09/18/22?? 103?? CO2?? 09/21/22 18:15?? 23?? 09/18/22?? 21 ??Low?? Alk Phos?? 09/21/22 18:15?? 71?? 09/18/22?? 70?? AST?? 09/21/22 18:15?? 19?? 09/18/22?? 20?? ALT?? 09/21/22 18:15?? 14?? 09/18/22?? 13 ??Low?? BUN?? 09/21/22 18:15?? 9?? 09/18/22?? 10?? Glucose Level?? 09/21/22 18:15?? 100?? 09/18/22?? 104?? Creatinine Level?? 09/21/22 18:15?? 0.68?? 09/18/22?? 0.70?? BUN/Creat Ratio?? 09/21/22 18:15?? 13.2?? 09/18/22?? 14.3?? eGFR CKD-EPI?? 09/21/22 18:15?? 128?? 09/18/22?? 127?? Calcium Level?? 09/21/22 18:15?? 9.5?? 09/18/22?? 8.8 ??Low?? Protein Total?? 09/21/22 18:15?? 8.5 ??High?? 09/18/22?? 7.5?? Albumin Level?? 09/21/22 18:15?? 4.9?? 09/18/22?? 4.4?? Globulin?? 09/21/22 18:15?? 3.6?? 09/18/22?? 3.1?? A/G Ratio?? 09/21/22 18:15?? 1.4?? 09/18/22?? 1.4?? Bilirubin Total?? 09/21/22 18:15?? 1.3 ??High?? 09/18/22?? 1.0?? Anion Gap?? 09/21/22 18:15?? 9.0?? 09/18/22?? 10.0?? Osmolality?? 09/21/22 18:15?? 276?? 09/18/22?? 268 ??Low? Testing?? LATEST RESULTS?? U hCG Ql?? 09/21/22 18:38?? Negative? UA Macroscopic?? LATEST RESULTS?? HISTORICAL RESULTS?? Urine Srce?? 09/21/22 18:38?? Clean Catch?? 09/18/22?? Clean Catch?? UA Color?? 09/21/22 18:38?? Yellow?? 09/18/22?? LIGHT YELL?? UA Appear?? 09/21/22 18:38?? Clear?? 09/18/22?? Clear?? UA Glucose?? 09/21/22 18:38?? Negative?? 09/18/22?? Negative?? UA Bili?? 09/21/22 18:38?? Negative?? 09/18/22?? Negative?? UA Ketones?? 09/21/22 18:38?? >=80?? 09/18/22?? Negative?? UA Spec Grav?? 09/21/22 18:38?? 1.020?? 09/18/22?? <=1.005?? UA Blood?? 09/21/22 18:38?? Large Abnormal?? 09/18/22?? Negative?? UA pH?? 09/21/22 18:38?? 6.00?? 09/18/22?? 6.00?? UA Protein?? 09/21/22 18:38?? Negative?? 09/18/22?? Negative?? UA Urobilinogen?? 09/21/22 18:38?? 0.2?? 09/18/22?? 0.2?? UA Nitrite?? 09/21/22 18:38?? Negative?? 09/18/22?? Negative?? UA Leuk Est?? 09/21/22 18:38?? Trace Abnormal?? 09/18/22?? Negative?? UA Culture Ind?.?? 09/21/22 18:38?? No? UA Microscopic?? LATEST RESULTS?? UA WBC?? 09/21/22 18:38?? 0-3?? UA RBC?? 09/21/22 18:38?? 10-25 Abnormal?? UA Squam Epithelial?? 09/21/22 18:38?? 0-3?? UA Bacteria?? 09/21/22 18:38?? Rare? Electronically Signed on 09/21/22 10:23 PM Inez Parnell APRN Emergency department Discharge instructions * Inez Parnell APRN: PERFORM Event Display: ED Discharge Information Authored Date: [id number] GALLOVERNONEN :2000 Age:22 years Sex:Female Visit Date:09/21/2022 Discharge Instructions We would like to thank you for allowing us to assist you with your healthcare needs. The following includes patient education materials and information regarding your injury/illness. Diagnosis from Today's Visit Bilateral pulmonary embolism Discharge Vitals Temperature??(Temporal Artery) 98.2 ??F (36.8 ??C) Heart Rate??(Peripheral) 91 Respiratory Rate?? 18 Blood Pressure?? 160/77?? Height?? 63.78 in (162.000 cm) Weight??(Estimated) 123.48 lb (56.00 kg) Allergies contrast media (iodine-based)??(Hives) penicillin??(Hives) What to Do Next Instructions from Your Care Team You will need to take the medicine for at least 3 months (and sometimes longer).?? take your medication as prescribed. The medication does not dissolve existing blood clots, but theydo keep them from getting bigger. They also help keep new blood clots from forming. Taking the medicine for a few months is important because it gives your body time to dissolve the old clot. It's also important because people who have a clot are at risk of developing another clot, especially in the first few months. Check with your doctor about any further outpatient testing that may been needed. ?? You Need to Schedule the Following Appointments Follow Up with??Follow up with primary care provider When:??Within 24 Hours Why: Keep your scheduled follow-up appointment??with your primary care provider You were treated today on an emergency basis; it may be haddad to contact your primary care provider to notify them of your visit today. You may have been referred to your regular doctor or a specialist, please follow up as instructed. If your condition worsens or you can't get in to see the doctor, contact the Emergency Department. Medications What How Much When Why Instructions Next Dose New apixaban (Eliquis Starter Pack for Treatment of DVT and PE 5 mg oral tablet) See instructions Bilateral pulmonary embolism as directed on package labeling ?? Pickup at [facility] Unchanged albuterol Pharmacy Information [facility]: [address] [facility] [place], [place] [id number] [phone] Education Materials Pulmonary Embolism A pulmonary embolism (PE) is a sudden blockage or decrease of blood flow in one or both lungs that happens when a clot travels into the arteries of the lung (pulmonary arteries). Most blockages come from a blood clot that forms in the vein of a leg or arm (deep vein thrombosis, DVT) and travels to the lungs. A clot is blood that has thickened into a gel or solid. PE is a dangerous and life-threatening condition that needs to be treated right away. What are the causes? This condition is usually caused by a blood clot that forms in a vein and moves to the lungs. In rare cases, it may be caused by air, fat, part of a tumor, or other tissue that moves through the veins and into the lungs. What increases the risk? The following factors may make you more likely to develop this condition: ? Experiencing a traumatic injury, such as breaking a hip or leg. ? Having: ? A spinal cord injury. ? Major surgery, especially hip or knee replacement, or surgery on parts of the nervous system or on the abdomen. ? A stroke. ? A blood-clotting disease. ? Long-term (chronic) lung or heart disease. ? Cancer, especially if you are being treated with chemotherapy. ? A central venous catheter. ? Taking medicines that contain estrogen. These include control pills and hormone replacement therapy. ? Being: ? . ? In the period of time after your baby is delivered (). ? Older than age 60. ? Overweight. ? A smoker, especially if you have other risks. ? Not very active (sedentary), not being able to move at all, or spending long periods sitting, such as travel over 6 hours. You are also at a greater risk if you have a leg in a cast or splint. What are the signs or symptoms? Symptoms of this condition usually start suddenly and include: ? Shortness of breath during activity or at rest. ? Coughing, coughing up blood, or coughing up bloody mucus. ? Chest pain, back pain, or shoulder blade pain that gets worse with deep breaths. ? Rapid or irregular heartbeat. ? Feeling light-headed or dizzy, or fainting. ? Feeling anxious. ? Pain and swelling in a leg. This is a symptom of DVT, which can lead to PE. How is this diagnosed? This condition may be diagnosed based on your medical history, a physical exam, and tests. Tests may include: ? Blood tests. ? An ECG (electrocardiogram) of the heart. ? A CT pulmonary angiogram. This test checks blood flow in and around your lungs. ? A ventilation???perfusion scan, also called a lung VQ scan. This test measures air flow and blood flow to the lungs. ? An ultrasound to check for a DVT. How is this treated? Treatment for this condition depends on many factors, such as the cause of your PE, your risk for bleeding or developing more clots, and other medical conditions you may have. Treatment aims to stop blood clots from forming or growing larger. In some cases, treatment may be aimed at breaking apart or removing the blood clot. Treatment may include: ? Medicines, such as: ? Blood thinning medicines, also called anticoagulants, to stop clots from forming and growing. ? Medicines that break apart clots (fibrinolytics). ? Procedures, such as: ? Using a flexible tube to remove a blood clot (embolectomy) or to deliver medicine to destroy it (catheter-directed thrombolysis). ? Surgery to remove the clot (surgical embolectomy). This is rare. You may need a combination of immediate, long-term, and extended treatments. Your treatment may continue for several months (maintenance therapy) or longer depending on your medical conditions. You and your health care provider will work together to choose the treatment program that is best for you. Follow these instructions at home: Medicines ? Take [id number] and prescription medicines only as told by your health care provider. ? If you are taking blood thinners: ? Talk with your health care provider before you take any medicines that contain aspirin or NSAIDs, such as ibuprofen. These medicines increase your risk for dangerous bleeding. ? Take your medicine exactly as told, at the same time every day. ? Avoid activities that could cause injury or bruising, and follow instructions about how to prevent falls. ? Wear a medical alert bracelet or carry a card that lists what medicines you take. ? Understand what foods and drugs interact with any medicines that you are taking. General instructions ? Ask your health care provider when you may return to your normal activities. Avoid sitting or lyingfor a long time without moving. ? Maintain a healthy weight. Ask your health care provider what weight is healthy for you. ? Do not use any products that contain nicotine or tobacco. These products include cigarettes, chewing tobacco, and vaping devices, such as e-cigarettes. If you need help quitting, ask your health careprovider. ? Talk with your health care provider about any travel plans. It is important to make sure that you are still able to take your medicine while traveling. ? Keep all follow-up visits. This is important. Where to find more information ? [place] [employer]: www.lung.org ? Centers for Disease Control and Prevention: www.cdc.gov Contact a health care provider if: ? You missed a dose of your blood thinner medicine. ? You have a fever. Get help right away if: ? You have: ? New or increased pain, swelling, warmth, or redness in an arm or leg. ? Shortness of breath that gets worse during activity or at rest. ? Worsening chest pain. ? A rapid or irregular heartbeat. ? A severe headache. ? Vision changes. ? A serious fall or accident, or you hit your head. ? Blood in your vomit, stool, or urine. ? A cut that will not stop bleeding. ? You cough up blood. ? You feel light-headed or dizzy, and that feeling does not go away. ? You cannot move your arms or legs. ? You are confused or have memory loss. These symptoms may represent a serious problem that is an emergency. Do not wait to see if the symptoms will go away. Get medical help right away. Call your local emergency services (911 in the [place] Do not drive yourself to the hospital. Summary ? A pulmonary embolism (PE) is a serious and potentially life-threatening condition. It happens when a blood clot from one part of the body travels to the arteries of the lung, causing a sudden blockage or decrease of blood flow to the lungs. This may result in shortness of breath, chest pain, dizziness, and fainting. ? Treatments for this condition usually include medicines to thin your blood (anticoagulants) or medicines to break apart blood clots. ? If you are given blood thinners, take your medicine exactly as told by your health care provider, at the same time every day. This is important. ? Understand what foods and drugs interact with any medicines that you are taking. ? If you have signs of PE or DVT, call your local emergency services (911 in the [place] This information is not intended to replace advice given to you by your health care provider. Make sure you discuss any questions you have with your health care provider. Document Revised: 02/13/2021 Document Reviewed: 02/13/2021 [employer] Patient Education ?? 2021 [employer] Tests Performed Radiology CT Angio Chest 09/21/2022 21:51 EDT Medications and Immunizations Administered Given Sodium Chloride 0.9%, 1000 mL, IV Bolus acetaminophen, 1000 mg, Oral Benadryl, 50 mg, IV Push Eliquis, 10 mg, Oral. For: Bilateral pulmonary embolism Eliquis, 10 mg, Oral. For: Bilateral pulmonary embolism methylPREDNISolone, 125 mg, IV Push Lab Test Name Test Result Date/Time WBC 10.5 K/mcL 09/21/2022 18:15 EDT RBC 4.92 Million/mcL 09/21/2022 18:15 EDT Hgb 13.8 g/dL 09/21/2022 18:15 EDT Hct 41.9 % 09/21/2022 18:15 EDT MCV 85.2 fL 09/21/2022 18:15 EDT MCH 28.0 pg 09/21/2022 18:15 EDT MCHC 32.9 g/dL 09/21/2022 18:15 EDT RDW-CV 13.8 % 09/21/2022 18:15 EDT Platelets 364 K/mcL 09/21/2022 18:15 EDT MPV 8.6 fL 09/21/2022 18:15 EDT Neutro Auto 72.4 % 09/21/2022 18:15 EDT Lymph Auto 21.6 % 09/21/2022 18:15 EDT Colbert Auto 4.9 % 09/21/2022 18:15 EDT Eos, Auto 0.40 % 09/21/2022 18:15 EDT Basophil Auto 0.4 % 09/21/2022 18:15 EDT Imm Gran Auto 0.3 % 09/21/2022 18:15 EDT Neutro Absolute 7.6 K/mcL 09/21/2022 18:15 EDT Lymph Absolute 2.3 K/mcL 09/21/2022 18:15 EDT Colbert Absolute 0.5 K/mcL 09/21/2022 18:15 EDT Eos Absolute 0.0 K/mcL 09/21/2022 18:15 EDT Baso Absolute 0.0 K/mcL 09/21/2022 18:15 EDT Imm Gran Absolute 0.03 09/21/2022 18:15 EDT Slide Review Not Indicated 09/21/2022 18:15 EDT D Dimer, (Quant.) 1209 ng/mL 09/21/2022 18:25 EDT Sodium Level 139 mmol/L 09/21/2022 18:15 EDT Potassium Level 3.6 mmol/L 09/21/2022 18:15 EDT Chloride Level 107 mmol/L 09/21/2022 18:15 EDT CO2 23 mmol/L 09/21/2022 18:15 EDT Alk Phos 71 IntlUnit/L 09/21/2022 18:15 EDT AST 19 IntlUnit/L 09/21/2022 18:15 EDT ALT 14 IntlUnit/L 09/21/2022 18:15 EDT BUN 9 mg/dL 09/21/2022 18:15 EDT Glucose Level 100 mg/dL 09/21/2022 18:15 EDT Creatinine Level 0.68 mg/dL 09/21/2022 18:15 EDT BUN/Creat Ratio 13.2 09/21/2022 18:15 EDT eGFR CKD-EPI 128 mL/min/1.73 m2 09/21/2022 18:15 EDT Calcium Level 9.5 mg/dL 09/21/2022 18:15 EDT Protein Total 8.5 g/dL 09/21/2022 18:15 EDT Albumin Level 4.9 g/dL 09/21/2022 18:15 EDT Globulin 3.6 09/21/2022 18:15 EDT A/G Ratio 1.4 09/21/2022 18:15 EDT Bilirubin Total 1.3 mg/dL 09/21/2022 18:15 EDT Anion Gap 9.0 09/21/2022 18:15 EDT Osmolality 276 mOsm/kg 09/21/2022 18:15 EDT U hCG Ql Negative 09/21/2022 18:38 EDT Urine Srce Clean Catch 09/21/2022 18:38 EDT UA Color YELLOW. 09/21/2022 18:38 EDT UA Appear CLEAR. 09/21/2022 18:38 EDT UA Glucose NEGATIVE 09/21/2022 18:38 EDT UA Bili NEGATIVE 09/21/2022 18:38 EDT UA Ketones >=80 mg/dL 09/21/2022 18:38 EDT UA Spec Grav 1.020 09/21/2022 18:38 EDT UA Blood LARGE Clinitek 09/21/2022 18:38 EDT UA pH 6.00 09/21/2022 18:38 EDT UA Protein NEGATIVE 09/21/2022 18:38 EDT UA Urobilinogen 0.2 09/21/2022 18:38 EDT UA Nitrite NEGATIVE 09/21/2022 18:38 EDT UA Leuk Est TRACE 09/21/2022 18:38 EDT UA Culture Ind?. No 09/21/2022 18:38 EDT UA WBC 0-3 09/21/2022 18:38 EDT UA RBC 10-25 09/21/2022 18:38 EDT UA Squam Epithelial 0-3 09/21/2022 18:38 EDT UA Bacteria Rare 09/21/2022 18:38 EDT Patient/Log Driver Signature Patient Name:GALLOKAREEM I have received this information and my questions have been answered. Patient/Log Driver Name: Patient/Log Driver Signature: Relationship to Patient: Witness Name/Signature: Date: Electronically Signed on: 09/21/2022 22:23 EDTSigned by:[facility] Patient Care team information Care Team Personnel Name: Inez Parnell APRN Position: Physician Member Role: Nurse Practitioner Address: Address: [address] [place] [id number] Name: Sherrie Coburn I Position: Nurse Member Role: ED Nurse Name: Abi Cast Position: Nurse Member Role: ED Nurse
--- OUTSIDE RECORDS SUMMARY | 2022-10-28 12:23 | XMS_ITS | Continuity of Care Document ---
Author Name Unknown Organization [facility] Address [address] [place] [address] Encounter LTTL_[place] FIN NBR [id number] Date(s): 09/22/22 - 09/22/22 [facility] [address] [place], [place] [address] Encounter Diagnosis Post-nasal drip(Discharge Diagnosis) - 09/22/22 Discharge Disposition: Home f/u External Provider Attending Physician: Stephen Peñaloza DO Admitting Physician: Stephen Peñaloza DO Allergies, Adverse Reactions, Alerts Substance Reaction Severity Status penicillin Hives Moderate Active contrast media (iodine-based) Hives Moderate Active Functional Status 09/22/22 Other exposure to Infectious Disease Non e [...] Start Date: 09/21/22 Status: Ordered Mental Status 09/22/22 Eye Opening Response [place] Spontaneous ly Best Verbal Response [place] Oriented Best Motor Response Terence Obeys comman ds [place] Coma Score 15 Problem List Condition Confirmation Course Effective Dates Status Health St atus Informant Bilateral pulmonary embolism Confirmed Active Vital Signs Most recent to oldest [Reference Range]: 1 Temperature Temporal Artery [36-38 Deg C ] 36.7 Deg C (09/22/22 6:37 PM) Peripheral Pulse Rate [60-100 bpm] 90 bp m (09/22/22 6:37 PM) Respiratory Rate [12-24 br/min] 20 br/mi n (09/22/22 6:37 PM) Blood Pressure [90-140/60-90 mmHg] 140/7 2mmHg (09/22/22 6:37 PM) Weight Dosing 56.00 kg (09/22/22 6:51 PM) Weight Estimated 56.00 kg (09/22/22 6:37 PM) Height/Length Dosing 162.000 cm (09/22/22 6:51 PM) Height/Length Estimated 162.000 cm (09/22/22 6:37 PM) Social History Social History Type Response Tobacco Never tobacco user T obacco Use:. Sex Hospital Discharge Instructions Patient Education 09/22/2022 19:10:18 Postnasal Drip Postnasal Drip Postnasal drip is the feeling of mucus going down the back of your throat. Mucus is a slimy substance that moistens and cleans your nose and throat, as well as the air pockets in face bones near yourforehead and cheeks (sinuses). Small amounts of mucus pass from your nose and sinuses down the backof your throat all the time. This is normal. When you produce too much mucus or the mucus gets too thick, you can feel it. Some common causes of postnasal drip include: ??? Having more mucus because of: ??? A cold or the flu. ??? Allergies. ??? Cold air. ??? Certain medicines. ??? Having more mucus that is thicker because of: ??? A sinus or nasal infection. ??? Dry air. ??? A food allergy. Follow these instructions at home: Relieving discomfort ??? Gargle with a salt-water mixture 3???4 times a day or as needed. To make a salt-water mixture, completely dissolve ?1 tsp of salt in 1 cup of warm water. ??? If the air in your home is dry, use a humidifier to add moisture to the air. ??? Use a saline spray or container (neti pot) to flush out the nose (nasal irrigation). These methods can help clear away mucus and keep the nasal passages moist. General instructions ??? Take pvoq-xud-gyjjkqv and prescription medicines only as told by your health care provider. ??? Follow instructions from your health care provider about eating or drinking restrictions. You may need to avoid caffeine. ??? Avoid things that you know you are allergic to (allergens), like dust, mold, pollen, pets, or certain foods. ??? Drink enough fluid to keep your urine pale yellow. ??? Keep all follow-up visits as told by your health care provider. This is important. Contact a health care provider if: ??? You have a fever. ??? You have a sore throat. ??? You have difficulty swallowing. ??? You have headache. ??? You have sinus pain. ??? You have a cough that does not go away. ??? The mucus from your nose becomes thick and is green or yellow in color. ??? You have cold or flu symptoms that last more than 10 days. Summary ??? Postnasal drip is the feeling of mucus going down the back of your throat. ??? If your health care provider approves, use nasal irrigation or a nasal spray 2???4 times a day. ??? Avoid things that you know you are allergic to (allergens), like dust, mold, pollen, pets, or certain foods. This information is not intended to replace advice given to you by your health care provider. Make sure you discuss any questions you have with your health care provider. Document Revised: 12/23/2020 Document Reviewed: 12/23/2020 [employer] Patient Education ?? 2021 [employer]. Follow Up Care 09/22/2022 18:37:41 With:Follow up with primary care provider Address: When:1 to 2 days Physician Emergency department Note * Phan Church MD: PERFORM Event Display: ED Note Physician Authored Date: [id number] KAREEM HOLDER :2000 Age:22 years Sex:Female Visit Date:09/22/2022 Basic Information Time Seen: Phan Church MD / 09/22/2022 18:52 Chief Complaint Patient complains of a popping sensation in throat and now has a bad taste in her mouth. Dx PE here yesterday, seen at [facility] today in ED for chest pain. History Of Present Illness: 22-year-old female with a history of trauma and severe anxiety??presents to the emergency department due to a concern of a feeling of popping and a funny taste in the back of her mouth.?? Has been seen multiple times??in the emergency department at [facility] and [facility]??over the past few days fora constellation of??somewhat unrelated symptoms.?? Please refer to the old notes which I have reviewed.?? Yesterday she was diagnosed with a PE??due to an elevated D- dimer??[she is menstruating].?? She has been taking her Eliquis.?? She has had no fever. Review of Systems: She is extremely anxious.?? She has multiple repetitive questions. ?? Constitutional:??No fevers, Eye:??No recent visual complaints ENT:??No ear pain, Gastrointestinal:??No nausea, vomiting, diarrhea, constipation Genitourinary:??No hematuria, or other concerning urinary symptoms, she is menstruating. ??She has had to change her pad frequently.?? She states even every hour over the past few hours. Integumentary:??No rash, pruritus, or significant skin complaints Neurologic:??Alert, grossly oriented, no focal neurological complaints, able to give a history and consents to examination Physical Exam Vitals & Measurements T:??36.7?C ??(Temporal Artery)?? HR:??90??(Peripheral)?? RR:??20?? BP:??140/72?? SpO2:??100%?? HT:??162.000??cm?? WT:??56.00??kg??(Estimated)?? O2 Therapy:??Room air?? Alert interactive extremely anxious young female. ??No pallor whatsoever. ??Mucous membranes. ??Vital signs are unremarkable??with minimally elevated blood pressure. ??Head neck exam is unremarkable.??The oropharynx reveals cobblestoning of the posterior pharynx.?? Tonsils are normal. ??The tongueis normal.?? Tympanic membrane's are normal. ??Neck is supple without adenopathy. ??Cervical spine is normal. The chest is clear without wheezes or crackles.?? Heart sounds are regular without murmur or extra sound. ??The extremities are??without swelling. ??The calves are nontender to palpation. Medical Decision Making: I specifically reviewed her CT scan. ??There is some motion artifact??as well as??less than ideal timing of??dye into her pulmonary??vessels.?? I was not at all convinced of pulmonary emboli. ??I called the radiologist and reviewed the films with her.?? We walked carefully through the exact??areas of concern which were at the junction of??secondary and tertiary vessels.?? It is certainly possiblethere are very small pulmonary emboli in this area, but they are highly unlikely to be the cause ofany of her symptoms.?? I reviewed this with the patient??that I was pretty confident??that her symptoms are primarily caused by anxiety.?? I did not see any??serious underlying??other physical cause and was worried that excessive medical intervention and testing could lead to??medical harm.?? I reviewed that these tiny pulmonary emboli, if they are,??are unlikely to be any significant risk. ??I did recommend she continue her??Eliquis??for the time being. ??I defer to primary care for consideration of lower extremity??Dopplers to look for DVTs.?? I suggested a shorter versus longer duration ofanticoagulation??[i.e. 3 to 4 months]??should she and her primary care decide to continue.?? She could also get a second opinion on the read from??a local radiologist. Procedure No Qualifying Data Reexamination/Reevaluation On reevaluation the patient actually was reassured??that my primary??thought was her symptoms were caused by anxiety. Assessment/Plan 1.??Post-nasal drip??R09.82 Reassured.?? Continue anticoagulation for the time being but??I believe March about her pulmonaryemboli. ??Could consider bilateral lower extremity??Doppler for DVTs as if there was a??DVT, then she would need??appropriate and??more ongoing anticoagulation.?? D-dimers could be done after anticoagulation to see??if she carried ongoing risk.?? She should follow-up closely with primary care and Irecommended consistent??primary care follow-up versus??recurrent DVT??visits to avoid??unnecessary medical harm.?? I recommended consideration of??more aggressive treatment of anxiety.?? She states she has??done trauma counseling and had a very traumatic childhood. ?? Her hemoglobin??was normal yesterday and could be rechecked by primary care. She was discharged in stable condition with her boyfriend. ??I explained to him??my limited concernabout??the diagnosis of pulmonary embolus??in this circumstance. Patient Education Postnasal Drip Follow Up With When Contact Information Follow up with primary care provider Within 1 to 2 days Additional Instructions: Medication Reconciliation Unchanged albuterol ?? apixaban (Eliquis Starter Pack for Treatment of DVT and PE 5 mg oral tablet)as directed on package labeling. Refills: 0. Problem List/Past Medical History Ongoing Bilateral pulmonary embolism Historical No qualifying data Allergies contrast media (iodine-based)??(Hives) penicillin??(Hives) Social History Electronic Cigarette/Vaping Electronic Cigarette Use: Never. Substance Use Marijuana Tobacco Never tobacco user Tobacco Use:. Electronically Signed on 09/22/22 10:08 PM Phan Church MD Reviewed by: Alexandra Parnell APRN Emergency department Discharge instructions * Phan Church MD: PERFORM Event Display: ED Discharge Information Authored Date: [id number] KAREEM HOLDER :2000 Age:22 years Sex:Female Visit Date:09/22/2022 Discharge Instructions We would like to thank you for allowing us to assist you with your healthcare needs. The following includes patient education materials and information regarding your injury/illness. Diagnosis from Today's Visit Post-nasal drip Discharge Vitals Temperature??(Temporal Artery) 98.1 ??F (36.7 ??C) Heart Rate??(Peripheral) 90 Respiratory Rate?? 20 Blood Pressure?? 140/72?? Height?? 63.78 in (162.000 cm) Weight??(Estimated) 123.48 lb (56.00 kg) Allergies contrast media (iodine-based)??(Hives) penicillin??(Hives) What to Do Next Instructions from Your Care Team I suspect the popping sensation??and taste in your mouth is from postnasal drip??and small cysts??that are not concerning.?? I reassure you.?? I also reviewed the CT angiogram??with the radiologist to read it in detail.?? At the joint of your secondary and tertiary vessels??on the left side there is??what appears to be??a possible blood clot,??and less confidently similar on the right side. ??These are both tiny.?? They also possibly could be explained by??the??inconsistent dye??and??motion artifact??in the scans. ??They are extremely unlikely to cause any symptoms.?? It is likely more beneficial to continue treatment for 3 to 4 months, as??recommended by your primary??doctor.?? A repeat??test called a D-dimer??after you have stopped anticoagulation and done when not menstruating??could be redone??after this period of time.?? Your primary doctor could consider bilateral lower extremity ultrasounds to look for deep vein??clots in your legs, because if there was any signs of lower extremity clots, this would suggest the need for??potentially longer term anticoagulation. ?? I am most concerned about her anxiety.?? I think??reviewing this with your primary??doctor is important.?? I am worried about??excessive medical testing??causing you harm. You Need to Schedule the Following Appointments Follow Up with??Follow up with primary care provider When:??Within 1 to 2 days You were treated today on an emergency [...] How Much When Why Instructions Next Dose Unchanged albuterol Unchanged apixaban (Eliquis Starter Pack for Treatment of DVT and PE 5 mg oral tablet) See instructions Bilateral pulmonary embolism as directed on package labeling ?? Education Materials Postnasal Drip Postnasal drip is the feeling of mucus going down the back of your throat. Mucus is a slimy substance that moistens and cleans your nose and throat, as well as the air pockets in face bones near yourforehead and cheeks (sinuses). Small amounts of mucus pass from your nose and sinuses down the backof your throat all the time. This is normal. When you produce too much mucus or the mucus gets too thick, you can feel it. Some common causes of postnasal drip include: ? Having more mucus because of: ? A cold or the flu. ? Allergies. ? Cold air. ? Certain medicines. ? Having more mucus that is thicker because of: ? A sinus or nasal infection. ? Dry air. ? A food allergy. Follow these instructions at home: Relieving discomfort ? Gargle with a salt-water mixture 3???4 times a day or as needed. To make a salt- water mixture, completely dissolve ?1 tsp of salt in 1 cup of warm water. ? If the air in your home is dry, use a humidifier to add moisture to the air. ? Use a saline spray or container (neti pot) to flush out the nose (nasal irrigation). These methods can help clear away mucus and keep the nasal passages moist. General instructions ? Take cwdf-ops-oqwzauf and prescription medicines only as told by your health care provider. ? Follow instructions from your health care provider about eating or drinking restrictions. You may need to avoid caffeine. ? Avoid things that you know you are allergic to (allergens), like dust, mold, pollen, pets, or certain foods. ? Drink enough fluid to keep your urine pale yellow. ? Keep all follow-up visits as told by your health care provider. This is important. Contact a health care provider if: ? You have a fever. ? You have a sore throat. ? You have difficulty swallowing. ? You have headache. ? You have sinus pain. ? You have a cough that does not go away. ? The mucus from your nose becomes thick and is green or yellow in color. ? You have cold or flu symptoms that last more than 10 days. Summary ? Postnasal drip is the feeling of mucus going down the back of your throat. ? If your health care provider approves, use nasal irrigation or a nasal spray 2???4 times a day. ? Avoid things that you know you are allergic to (allergens), like dust, mold, pollen, pets, or certain foods. This information is not intended to replace advice given to you by your health care provider. Make sure you discuss any questions you have with your health care provider. Document Revised: 12/23/2020 Document Reviewed: 12/23/2020 Elsevier Patient Education ?? 2021 [employer]. Patient/Fisheries Technical Officer Signature Patient Name:KAREEM HOLDER I have received this information and my questions have been answered. Patient/Fisheries Technical Officer Name: Patient/Fisheries Technical Officer Signature: Relationship to Patient: Witness Name/Signature: Date: Electronically Signed on: 09/22/2022 20:13 EDTSigned by:CITLALY Patient Care team information Care Team Personnel Name: Jeannine Gordillo Position: Nurse Member Role: ED Nurse Name: Gt Rincon Position: Nurse Member Role: ED Nurse Name: Phan Church MD Position: Physician Member Role: ED Physician Address: Address: [address] [place] [id number]
--- OUTSIDE RECORDS SUMMARY | 2022-10-28 12:23 | XMS_ITS | Continuity of Care Document ---
Author Name Unknown Organization [facility] Address [address] [place] [address] Encounter LTTL_[place] FIN NBR [id number] Date(s): 09/20/22 - 09/20/22 [facility] [address] [place], [place] [address] Encounter Diagnosis Right lower quadrant pain(Discharge Diagnosis) - 09/20/22 Discharge Disposition: Home f/u Internal Provider Attending Physician: Gigi Ballard MD Admitting Physician: Gigi Ballard MD Allergies, Adverse Reactions, Alerts Substance Reaction Severity Status penicillin Hives Moderate Active contrast media (iodine-based) Hives Moderate Active Functional Status 09/20/22 Family Member Travel History No recent t rosi Recent Travel History No recent travel Other exposure to Infectious Disease Non e Medications albuterol 0 Refill(s) Start Date: 09/20/22 Status: Ordered Mental Status 09/20/22 Eye Opening Response [place] Spontaneous ly Best Verbal Response [place] Oriented Best Motor Response Terence Obeys comman ds [place] Coma Score 15 Vital Signs Most recent to oldest [Reference Range]: 1 Temperature Temporal Artery [36-38 Deg C ] 36.6 Deg C (09/20/22 5:27 PM) Peripheral Pulse Rate [60-100 bpm] 65 bp m (09/20/22 5:27 PM) Respiratory Rate [12-24 br/min] 18 br/mi n (09/20/22 5:27 PM) Blood Pressure [90-140/60-90 mmHg] 121/7 9mmHg (09/20/22 5:27 PM) Weight Dosing 55.79 kg (09/20/22 5:54 PM) Weight Estimated 55.79 kg (09/20/22 5:27 PM) Height/Length Dosing 162.000 cm (09/20/22 5:54 PM) Height/Length Estimated 162.000 cm (09/20/22 5:27 PM) Social History Social History Type Response Tobacco Never tobacco user T obacco Use:. Sex Discharge instructions * Event Display: Discharge Instructions Emergency department Discharge instructions * Jasmine Nguyen APRN: PERFORM Event Display: ED Discharge Information Authored Date: [id number] KAREEM HOLDER :2000 Age:22 years Sex:Female Visit Date:09/20/2022 Discharge Instructions We would like to thank you for allowing us to assist you with your healthcare needs. The following includes patient education materials and information regarding your injury/illness. Diagnosis from Today's Visit Right lower quadrant pain Discharge Vitals Temperature??(Temporal Artery) 97.9 ??F (36.6 ??C) Heart Rate??(Peripheral) 65 Respiratory Rate?? 18 Blood Pressure?? 121/79?? Height?? 63.78 in (162.000 cm) Weight??(Estimated) 123.02 lb (55.79 kg) Allergies contrast media (iodine-based)??(Hives) penicillin??(Hives) What to Do Next Instructions from Your Care Team We have scheduled a ultrasound??for you at 6 in the morning tomorrow,??we will call you with the results of this.?? Monitor for any worsening signs or symptoms such as increased pain, fever, worsening nausea or vomiting or any other concerns.?? If it looks to be that your issue is related to??a small hernia we will refer you to general surgery for further evaluation and treatment. Future Orders US Abdomen Limited, *Est. 09/21/22, Routine, Reason: R inguinal pain, Transport Mode: Ambulatory, Inguinal bulge You were treated today on an emergency basis; it may be haddad to contact your primary care provider to notify them of your visit today. You may have been referred to your regular doctor or a specialist, please follow up as instructed. If your condition worsens or you can't get in to see the doctor, contact the Emergency Department. Medications What When Instructions Next Dose Unchanged albuterol Patient/Manager Training And Development Signature Patient Name:KAREEM HOLDER I have received this information and my questions have been answered. Patient/Manager Training And Development Name: Patient/Manager Training And Development Signature: Relationship to Patient: Witness Name/Signature: Date: Electronically Signed on: 09/20/2022 19:37 EDTSigned by:JADE Patient Care team information Care Team Personnel Name: Jasmine Nguyen APRN Position: Physician Member Role: Physician Address: Address: [address] [place] [id number] Name: Leidy Zafar Position: Nurse Member Role: ED Nurse Name: Abi Cast Position: Nurse Member Role: ED Nurse
--- OUTSIDE RECORDS SUMMARY | 2022-10-28 12:23 | XMS_ITS | Continuity of Care Document ---
Author Name Unknown Organization [facility][1] ealthcare Address [address] [place] [address] Encounter LTTL_SD FIN NBR [id number] Date(s): 09/21/22 - 09/21/22 [facility] [address] [place] [address]- [place] Encounter Diagnosis Other intra-abdominal and pelvic swelling, mass and lump(Final) - Discharge Disposition: Home or Self Care Attending Physician: Jasmine Nguyen APRN Admitting Physician: Jasmine Nguyen APRN Allergies, Adverse Reactions, Alerts Substance Reaction Severity Status penicillin Hives Moderate Active contrast media (iodine-based) Hives Moderate Active Medications albuterol 0 Refill(s) Start Date: 09/20/22 Status: Ordered Eliquis Starter Pack for Treatment of DVT and PE 5 mg oral tablet See Instructions, as directed on package labeling, # 74 EA, 0 Refill(s), Pharmacy: [id number], 162, cm, 09/21/22 18:24:00 EDT, Height/Length Dosing, 56, kg, 09/21/22 18:24:00 EDT, Weight Dosing Start Date: 09/21/22 Status: Ordered Problem List Condition Confirmation Course Effective Dates Status Health atus Informant Bilateral pulmonary embolism Confirmed Active Results Radiology Reports * Exam Date Time Procedure Performing Provider Status 09/21/22 6:39 AM US Abdomen Limited [employer] ed; Auth (Verified) Notes: (US Abdomen Limited) Reason For Exam: R inguinal pain US Abdomen Limited EXAM DESCRIPTION: US Abdomen Limited 09/21/2022 INDICATION: R INGUINAL PAIN TECHNIQUE: Limited grayscale ultrasound examination of the right lower quadrant/inguinal region was performed in the vicinity of apparent clinical concern. Static and cine clip images were obtained. COMPARISON: CT abdomen/pelvis without contrast from 09/18/2022 FINDINGS: No solid or cystic lesion identified in the right inguinal region with normal appearing subcutaneous soft tissues and abdominal wall musculature in this region. No hernia is identified. IMPRESSION: Unremarkable ultrasound examination of the right inguinal region in the vicinity of clinical concern JOB #: [id number] Final Signed by: Maury Napier MD Signed (Electronic Signature): 09/21/2022 8:21 am Social History Social History Type Response Tobacco Never tobacco user T obacco Use:. Sex
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
[2022-10-28] MEDS: Acetaminophen 500 MG TAB 1000 MG PO (13:00)
[2022-10-28] MEDS: Normal Saline 1,000 ML 1000 ML IV (13:00)
[2022-10-28 13:10] LABS: Abs Immature Grans 0.01 10^3/uL (0.0-0.06); Absolute Basophil Count 0.04 10^3/uL (0.0-0.2); Absolute Eosinophil Count 0.18 10^3/uL (0.0-0.7); Absolute Lymphocyte Count 2.36 10^3/uL (1.2-3.4); Absolute Monocyte Count 0.33 10^3/uL (0.1-0.8); Absolute Neutrophil Count 3.44 10^3/uL (1.2-6.7); Basophils % 0.6; Eosinophils % 2.8; HCT 40.4 % (36.0-46.0); HGB 13.3 g/dL (11.2-15.7); Immature Grans % 0.2; Lymphocytes % 37.1; MCH 27.7 pg (27.0-33.0); MCHC 32.9 % (32.0-36.0); MCV 84 fL (80-95); MPV 8.7 fL (8.0-11.0); Monocytes % 5.2; Neutrophils % 54.1; Platelet Count 372 10^3/uL (130-400); RDW 13.6 % (11.7-14.6); RDW-SD 42.2 fL; WBC 6.36 10^3/uL (4.4-10.8)
[2022-10-28] MEDS: Prochlorperazine 10 MG/2 ML VIAL 5 MG IVP (13:21)
[2022-10-28 13:36] LABS: ALT 16 U/L (14-59); AST 13 U/L (15-37); Alkaline Phosphatase 90 U/L (46-116); Anion Gap 10.4 mmol/L (3-11); BUN 8 mg/dL (7-18); Bilirubin, Total 0.7 mg/dL (0.2-1.0); CO2 25.6 mmol/L (21.0-32.0); CREATININE 0.7 mg/dL (0.55-1.02); Calcium 8.9 mg/dL (8.5-10.1); Chloride 105 mmol/L (98-107); Glucose 98 mg/dL (74-106); Magnesium 1.6 mg/dL (1.8-2.4); Potassium 3.8 mmol/L (3.5-5.1); Sodium 141 mmol/L (136-145); Total Protein 7.7 g/dL (6.4-8.2)
== END 2022-10-28 14:12 | disposition home or self-care (01) ==
PROVIDERS: Emergency Provider Physician Assistant; PCP Nurse Practitioner Adult Health
DX: R55 Syncope and collapse (principal)
CPT/HCPCS: 36416; 80053; 81025; 82962; 93005; 96361; 96374; 99284; 83735; 84443; 85025; 93010; J0780

== ENCOUNTER 2022-11-02 04:01 | Outpatient (CLI) | payer MEDICAID, SELFPAY ==
[2022-11-02 13:00] LABS: Magnesium 1.7 mg/dL (1.8-2.4)
== END 2022-11-02 04:02 | disposition home or self-care (01) ==
LOC: LBO 04:01
PROVIDERS: PCP Nurse Practitioner Adult Health; Visit Provider Nurse Practitioner Family
DX: E83.42 Hypomagnesemia (principal)
CPT/HCPCS: 36415; 83735

== ENCOUNTER 2022-11-09 14:14 | Outpatient (RCR) | payer MEDICAID, SELFPAY ==
--- NOTE | 2022-11-09 14:15 | HOLTER_ITS ---
APPROVED REPORT Conclusion This is a Holter monitor ordered for syncope Rhythm throughout was sinus with an average heart rate of 68. Minimum was 55, maximum 111 No dysrhythmias were recorded No patient symptoms were reported
== END 2022-11-25 23:59 | disposition home or self-care (01) ==
LOC: CARDOPNVT 14:14
PROVIDERS: PCP Nurse Practitioner Adult Health; Visit Provider Nurse Practitioner Adult Health
DX: R55 Syncope and collapse (principal)
CPT/HCPCS: 93225; 93226

== ENCOUNTER 2022-11-22 02:46 | Outpatient (CLI) | payer MEDICAID, SELFPAY ==
[2022-11-22] MEDS: Inhaler, Assist Device 1 EACH MC (16:45)
[2022-11-22] MEDS: Methacholine 100 MG VIAL IH (16:45)
[2022-11-22] MEDS: Albuterol HFA 18 GM 200 PUFF INH IH (16:45)
--- NOTE | 2022-11-23 10:01 | W.PFT ---
Date of service: 11/22/22 Time of Service: 15:14 Pulmonary Function Test Result Indications: Dyspnea Interpretation Spirometry: No baseline airflow limitation. There was a 21% decrease in FEV1 with administration of 0.5mg/mL methacholine. Impression Positive methacholine challenge test. Clinical Correlation therefore is recommended.
== END 2022-11-22 02:47 | disposition home or self-care (01) ==
LOC: RT 02:46
PROVIDERS: PCP Nurse Practitioner Adult Health; Visit Provider Family Medicine
DX: J45.909 Unspecified asthma, uncomplicated (principal)
CPT/HCPCS: 94060; 94070; J7674

== ENCOUNTER 2022-11-28 20:35 | Emergency (ER) | payer MEDICAID, SELFPAY ==
[2022-11-28] VITALS (10 sets, daily range): BP systolic 100–119; BP diastolic 47–79; PULSE 61–82; RESP 18; TEMP 36.5; O2SAT 98–99
--- NOTE | 2022-11-28 20:30 | RT.EKG_ITS ---
APPROVED REPORT Exam: Resting ECG Reason for Exam: chest pain Patient Location: E HR:84 bpm ECG Measurements Heart Rate 84 AXIS OH 148 P 22 QRSd 98 QRS 66 QT 360 T 34 QTc 424 Conclusion Sinus rhythm...normal P axis, V-rate 60- 99 sinus rhtyhm, normal axis, normal inervals, non ischemic
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
[2022-11-28 21:14] LABS: Abs Immature Grans 0.02 10^3/uL (0.0-0.06); Absolute Basophil Count 0.05 10^3/uL (0.0-0.2); Absolute Eosinophil Count 0.21 10^3/uL (0.0-0.7); Absolute Lymphocyte Count 3.61 10^3/uL (1.2-3.4); Absolute Monocyte Count 0.52 10^3/uL (0.1-0.8); Absolute Neutrophil Count 4.23 10^3/uL (1.2-6.7); Basophils % 0.6; Eosinophils % 2.4; HCT 38.2 % (36.0-46.0); HGB 12.4 g/dL (11.2-15.7); Immature Grans % 0.2; Lymphocytes % 41.8; MCH 27.7 pg (27.0-33.0); MCHC 32.5 % (32.0-36.0); MCV 86 fL (80-95); MPV 8.6 fL (8.0-11.0); Platelet Count 337 10^3/uL (130-400); RBC 4.47 10^6/uL (3.93-5.22); RDW 13.6 % (11.7-14.6); RDW-SD 42.5 fL; WBC 8.64 10^3/uL (4.4-10.8)
[2022-11-28] MEDS: Ketorolac 15 MG/ML VIAL IVP (21:17)
[2022-11-28 21:36] LABS: ALT 20 U/L (14-59); AST 16 U/L (15-37); Alkaline Phosphatase 82 U/L (46-116); BUN 10 mg/dL (7-18); Bilirubin, Total 0.5 mg/dL (0.2-1.0); CREATININE 0.7 mg/dL (0.55-1.02); Chloride 104 mmol/L (98-107); Glucose 94 mg/dL (74-106); Magnesium 1.7 mg/dL (1.8-2.4); Potassium 3.2 mmol/L (3.5-5.1); Sodium 140 mmol/L (136-145); Total Protein 7.4 g/dL (6.4-8.2); Troponin I < 50 ng/L (<or=60)
[2022-11-28 21:38] LABS: Bilirubin Negative (Negative); Blood Negative (Negative); Clarity Clear (Clear); Glucose Negative (Negative); Ketones Negative (Negative); Leukocyte Esterase Negative (Negative); Nitrite Negative (Negative); Urobilinogen 0.2 mg/dL (Up to 0.2)
[2022-11-28] MEDS: Magnesium Oxide 400 MG TAB PO (21:48)
[2022-11-28] MEDS: POTASSIUM CHLORIDE 20 MEQ, POTASSIUM CHLORIDE 10 MEQ 30 MEQ PO (21:48)
[2022-11-28 22:10] LABS: D-Dimer 313 ng/mlFEU (<500)
== END 2022-11-28 22:32 | disposition home or self-care (01) ==
PROVIDERS: Emergency Provider Nurse Practitioner Family; PCP Nurse Practitioner Adult Health
DX: R42 Dizziness and giddiness; R07.89 Other chest pain
CPT/HCPCS: 36415; 80053; 81025; 93005; 96372; 99284; 81003; 83735; 84484; 85025; 85379; 93010; J1885

== ENCOUNTER 2022-12-01 20:23 | Emergency (ER) | payer MEDICAID, SELFPAY ==
--- NOTE | 2022-12-01 20:15 | RT.EKG_ITS ---
APPROVED REPORT Exam: Resting ECG Reason for Exam: Chest Pain Patient Location: E HR:78 bpm ECG Measurements Heart Rate 78 AXIS MA 132 P 20 QRSd 96 QRS 87 QT 351 T 37 QTc 402 Conclusion Sinus rhythm...normal P axis, V-rate 60- 99 Narrow complex normal sinus rhythm at a rate of 78. Normal axis. Intervals within normal limits. N o acute injury pattern.
[2022-12-01 20:29] VITALS: BP 140/78; PULSE 78; RESP 16; TEMP 36.7; O2SAT 98
[2022-12-01 20:33] VITALS: RESP 16
[2022-12-01 21:11] VITALS: O2SAT 99
[2022-12-01 21:12] VITALS: BP 137/58; PULSE 72
[2022-12-01] MEDS: Acetaminophen 325 MG TAB 1000 MG PO (21:16)
[2022-12-01 21:17] VITALS: BP 138/58; PULSE 78; RESP 18; O2SAT 98
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
== END 2022-12-01 21:18 | disposition home or self-care (01) ==
LOC: ER 21:09
PROVIDERS: Emergency Provider Physician Assistant; PCP Nurse Practitioner Adult Health
DX: R07.89 Other chest pain
CPT/HCPCS: 93005; 99283; 93010; 99282

== ENCOUNTER 2022-12-11 22:02 | Emergency (ER) | payer MEDICAID, SELFPAY ==
[2022-12-11] VITALS (17 sets, daily range): BP systolic 102–125; BP diastolic 45–77; PULSE 62–88; RESP 11–34; TEMP 36.9; O2SAT 87–100
--- NOTE | 2022-12-11 22:00 | RT.EKG_ITS ---
APPROVED REPORT Exam: Resting ECG Reason for Exam: chest pain Patient Location: E HR:81 bpm ECG Measurements Heart Rate [address] 121 P 23 QRSd 100 QRS 78 QT 359 T 48 QTc 416 Conclusion Sinus rhythm... V-rate 60- [address] segment or T wave abnormalities to suggest occlusive AK
--- NOTE | 2022-12-11 22:45 | DI.RAD_ITS ---
Exam(s) XR CHEST 2V PA LATERAL EXAM: XR CHEST 2V PA LATERAL CLINICAL HISTORY: chest pain TECHNIQUE: 2D digital imaging was performed. COMPARISON: CT CT CHEST PE CTA from 09/25/2022 FINDINGS: HEART: Normal size. Aorta: Not dilated. PULMONARY VASCULATURE: Normal. LUNGS: Clear. PLEURAL SPACE: No pleural effusion or pneumothorax. BONE:Unremarkable for age. IMPRESSION: No acute abnormality. DATA REPOSITORY: RADIATION DOSE DELIVERED:
[2022-12-11] MEDS: Acetaminophen 500 MG TAB 1000 MG PO (22:53)
[2022-12-11] MEDS: Lidocaine 5% Patch 1 PATCH TP (22:53)
[2022-12-11 23:37] LABS: D-Dimer 448 ng/mlFEU (<500)
[2022-12-12] VITALS: PULSE 70; RESP 15; O2SAT 100
[2022-12-12 00:10] VITALS: PULSE 76; RESP 14; O2SAT 99
[2022-12-12 00:20] VITALS: PULSE 66; RESP 13; O2SAT 100
--- NOTE | 2022-12-12 00:25 | DI.VRAD_ITS ---
PROCEDURE INFORMATION: Exam: XR Chest Exam date and time: 12/11/2022 11:39 PM Age: 22 years old Clinical indication: Chest wall pain; Patient HX: Chest pain TECHNIQUE: Imaging protocol: Radiologic exam of the chest. Views: 2 views. COMPARISON: CR XR CHEST 2V PA LATERAL 09/22/2022 1:17 PM FINDINGS: Lungs: Lungs are adequately inflated and symmetric. No focal consolidation or pulmonary edema. Pleural spaces: No pleural effusion. No pneumothorax. Heart/Mediastinum: Cardiomediastinal contours within normal limits. Bones/joints: No acute osseous finding. IMPRESSION: No acute findings. Dictated and Authenticated by: Dontrell Lopez MD. Ordering:GEORGIA Goddard MD
[2022-12-12 00:30] VITALS: PULSE 74; RESP 14; O2SAT 98
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
[2022-12-12 00:40] VITALS: PULSE 89; RESP 20; O2SAT 99
[2022-12-12 01:25] VITALS: BP 102/47; PULSE 62; RESP 20; TEMP 36.9; O2SAT 99
== END 2022-12-12 01:26 | disposition home or self-care (01) ==
PROVIDERS: Emergency Provider Student in an Organized Health Care Education/Training Program; PCP Nurse Practitioner Adult Health
DX: R07.89 Other chest pain (principal); R06.02 Shortness of breath
CPT/HCPCS: 93005; 99284; 71046; 85379; 93010

== ENCOUNTER 2023-03-25 16:55 | Outpatient (CLI) | payer MEDICAID, SELFPAY ==
[2023-03-25 16:46] LABS: Magnesium 1.9 mg/dL (1.8-2.4)
== END 2023-03-25 16:56 | disposition home or self-care (01) ==
LOC: LBO 16:55
PROVIDERS: PCP Nurse Practitioner Adult Health; Visit Provider Nurse Practitioner Adult Health
DX: E83.42 Hypomagnesemia (principal)
CPT/HCPCS: 36415; 83735

== ENCOUNTER 2023-05-07 08:23 | Emergency (ER) | payer MEDICAID, SELFPAY ==
[2023-05-07 08:25] VITALS: BP 138/72; PULSE 81; RESP 15; TEMP 37.2; O2SAT 97
--- NOTE | 2023-05-07 08:40 | DI.RAD_ITS ---
Exam(s) XR WRIST LT COMPLETE EXAM: XR WRIST LT COMPLETE CLINICAL HISTORY: pain and swelling. TECHNIQUE: 2D digital imaging was performed. Three views. COMPARISON: No exams were available for comparison FINDINGS: BONES: No acute fracture is present. No bony destructive lesion is seen. JOINTS: The carpal bones are normally aligned. SOFT TISSUE: Normal. IMPRESSION: Unremarkable radiographs of the left wrist. DATA REPOSITORY: RADIATION DOSE DELIVERED:
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
[2023-05-07] MEDS: Acetaminophen 325 MG TAB 650 MG PO (08:45)
[2023-05-07] MEDS: Ibuprofen 600 MG TAB PO (08:45)
--- NOTE | 2023-05-07 09:12 | DI.VRAD_ITS ---
PROCEDURE INFORMATION: Exam: XR Left Wrist Exam date and time: 05/07/2023 8:52 AM Age: 23 years old Clinical indication: Wrist; Left; Patient HX: Pain and swelling TECHNIQUE: Imaging protocol: Radiologic exam of the left wrist. Views: 3 or more views. COMPARISON: No relevant prior studies available. FINDINGS: Bones/joints: There is no evidence of acute fracture.There is no evidence of malalignment or dislocation. Soft tissues: Normal. IMPRESSION: There is no evidence of acute fracture.There is no evidence of malalignment or dislocation. Dictated and Authenticated by: Boy Robertson MD. Ordering:RUPERTO Lewis MD
== END 2023-05-07 09:26 | disposition home or self-care (01) ==
PROVIDERS: Emergency Provider Physician Assistant; PCP Nurse Practitioner Adult Health
DX: M25.532 Pain in left wrist (principal); M67.432 Ganglion, left wrist
CPT/HCPCS: 99283; 73110

== ENCOUNTER 2023-05-11 12:44 | Emergency (ER) | payer MEDICAID, SELFPAY ==
[2023-05-11 12:46] VITALS: BP 139/76; PULSE 100; RESP 26; TEMP 36.8; O2SAT 98
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
[2023-05-11] MEDS: Albuterol/Ipratropium 3 ML UPD VIAL UPD ×2 (13:02)
[2023-05-11] MEDS: predniSONE 20 MG TAB 60 MG PO (13:10)
[2023-05-11 13:11] VITALS: RESP 27
[2023-05-11 13:59] VITALS: BP 123/77; PULSE 99; RESP 22; TEMP 36.7; O2SAT 96
== END 2023-05-11 14:00 | disposition home or self-care (01) ==
PROVIDERS: Emergency Provider Emergency Medicine; PCP Nurse Practitioner Adult Health
DX: J45.901 Unspecified asthma with (acute) exacerbation (principal); R06.02 Shortness of breath; R05.1 Acute cough; R06.2 Wheezing
CPT/HCPCS: 94640; 99284; 99283; J7512; J7620

== ENCOUNTER → 2023-10-05 00:29 | Outpatient (CLI) | payer MEDICAID, SELFPAY ==
--- NOTE | 2023-10-05 07:30 | DI.US_ITS ---
Exam(s) US ABDOMEN LIMITED EXAM: US ABDOMEN LIMITED CLINICAL HISTORY: NAUSEA,R11.0,CHECK GB TECHNIQUE: Ultrasound abdomen performed using standard protocol. COMPARISON: CT CT CHEST PE CTA from 09/25/2022 FINDINGS: LIVER: Normal size. Normalechogenicity. No suspicious liver lesions are seen.. GALLBLADDER: No evidence of cholelithiasis. No evidence of wall thickening. No pericholecystic fluid identified. KIM'S SIGN: Negative. BILIARY SYSTEM: No intrahepatic or extrahepatic biliary ductal dilation. RIGHT KIDNEY: Normal size. No evidence of renal calculi. No evidence of hydronephrosis. No suspicious renal mass. No cyst identified. PANCREAS: Normal where visualized. ABDOMINAL AORTA AND IVC: Visualized portions normal caliber. ASCITES: None seen. IMPRESSION: Normal sonographic appearance of the right upper quadrant. DATA REPOSITORY:
== END ==
PROVIDERS: PCP Nurse Practitioner Adult Health; Visit Provider Nurse Practitioner Adult Health
DX: R11.0 Nausea (principal)
CPT/HCPCS: 76705

== ENCOUNTER 2023-12-07 07:23 | Emergency (ER) | payer MEDICAID, SELFPAY ==
[2023-12-07] VITALS (9 sets, daily range): BP systolic 137; BP diastolic 77; PULSE 61–83; RESP 16–116; TEMP 36.2–36.3; O2SAT 97–99
--- NOTE | 2023-12-07 07:30 | RT.EKG_ITS ---
APPROVED REPORT Exam: Resting ECG Reason for Exam: chest pain Patient Location: E HR:61 bpm ECG Measurements Heart Rate 61 AXIS NJ 129 P 36 QRSd 98 QRS 78 QT 404 T 37 QTc 407 Conclusion Sinus rhythm...normal P axis, V-rate 60- 99
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
[2023-12-07 08:00] LABS: Abs Immature Grans 0.02 10^3/uL (0.0-0.06); Absolute Basophil Count 0.05 10^3/uL (0.0-0.2); Absolute Eosinophil Count 0.37 10^3/uL (0.0-0.7); Absolute Lymphocyte Count 2.43 10^3/uL (1.2-3.4); Absolute Monocyte Count 0.39 10^3/uL (0.1-0.8); Absolute Neutrophil Count 4.22 10^3/uL (1.2-6.7); Basophils % 0.7 %; Eosinophils % 4.9 %; HCT 40.2 % (36.0-46.0); HGB 13.3 g/dL (11.2-15.7); Immature Grans % 0.3 %; Lymphocytes % 32.5 %; MCH 30.1 pg (27.0-33.0); MCHC 33.1 % (32.0-36.0); MCV 91 fL (80-95); MPV 8.6 fL (8.0-11.0); Monocytes % 5.2 %; Neutrophils % 56.4 %; Platelet Count 329 10^3/uL (130-400); RBC 4.42 10^6/uL (3.93-5.22); RDW 12.5 % (11.7-14.6); RDW-SD 41.1 fL; WBC 7.48 10^3/uL (4.4-10.8)
--- NOTE | 2023-12-07 08:05 | DI.RAD_ITS ---
Exam(s) XR CHEST 2V PA LATERAL EXAM: XR CHEST 2V PA LATERAL CLINICAL HISTORY: chest pain TECHNIQUE: 2D digital imaging was performed. Two views. COMPARISON: No exams were available for comparison FINDINGS: HEART: Normal size. Aorta: Not dilated. PULMONARY VASCULATURE: Normal. MEDIASTINUM: Unremarkable. LUNGS: Clear. PLEURAL SPACE: No pleural effusion or pneumothorax. BONE:Unremarkable for age. SOFT TISSUES: Unremarkable. IMPRESSION: No acute abnormality. DATA REPOSITORY: RADIATION DOSE DELIVERED:
[2023-12-07] MEDS: Albuterol/Ipratropium 3 ML UPD VIAL UPD (08:10)
[2023-12-07] MEDS: methylPREDNISolone SUCC 125 MG VIAL IVP (08:11)
[2023-12-07 08:21] LABS: ALT 18 U/L (14-59); AST 18 U/L (15-37); Albumin 3.8 g/dL (3.4-5.0); Alkaline Phosphatase 75 U/L (46-116); Anion Gap 9.6 mmol/L (3-11); BUN 7 mg/dL (7-18); Bilirubin, Total 0.39 mg/dL (0.2-1.0); CO2 26.4 mmol/L (21.0-32.0); CREATININE 0.8 mg/dL (0.55-1.02); Calcium 8.9 mg/dL (8.5-10.1); Chloride 107 mmol/L (98-107); Estimated GFR 107.44 (mL/min/1.73m2); Glucose 97 mg/dL (74-106); HCG Qual (Serum) Negative; Magnesium 1.7 mg/dL (1.8-2.4); Potassium 3.9 mmol/L (3.5-5.1); Sodium 143 mmol/L (136-145); Total Protein 7.3 g/dL (6.4-8.2)
[2023-12-07 08:34] LABS: D-Dimer 518 ng/mlFEU (<500)
== END 2023-12-07 09:16 | disposition home or self-care (01) ==
PROVIDERS: Emergency Provider Emergency Medicine; PCP Nurse Practitioner Adult Health
DX: J45.20 Mild intermittent asthma, uncomplicated (principal); R07.9 Chest pain, unspecified
CPT/HCPCS: 80053; 93005; 94640; 96374; 99284; 71046; 83735; 84703; 85025; 85379; 93010; 99283; J2919; J7620

== ENCOUNTER 2023-12-13 03:37 | Emergency (ER) | payer MEDICAID, SELFPAY ==
[2023-12-13] VITALS (19 sets, daily range): BP systolic 117–142; BP diastolic 55–92; PULSE 55–84; RESP 9–20; TEMP 36.6; O2SAT 95–99
--- NOTE | 2023-12-13 03:30 | RT.EKG_ITS ---
APPROVED REPORT Exam: Resting ECG Reason for Exam: chest pain Patient Location: E HR:66 bpm ECG Measurements Heart Rate 66 AXIS NJ 145 P 31 QRSd 96 QRS 90 QT 404 T 53 QTc 425 Conclusion Sinus rhythm...normal P axis, V-rate 60- 99 I have reviewed and interpreted ECG and agree with software generated interpretation.
[2023-12-13 04:03] LABS: Abs Immature Grans 0.06 10^3/uL (0.0-0.06); Absolute Basophil Count 0.07 10^3/uL (0.0-0.2); Absolute Eosinophil Count 0.23 10^3/uL (0.0-0.7); Absolute Lymphocyte Count 5.85 10^3/uL (1.2-3.4); Absolute Monocyte Count 0.62 10^3/uL (0.1-0.8); Basophils % 0.6 %; Eosinophils % 1.9 %; HCT 40.2 % (36.0-46.0); HGB 13.1 g/dL (11.2-15.7); Immature Grans % 0.5 %; Lymphocytes % 47.8 %; MCH 29.9 pg (27.0-33.0); MCHC 32.6 % (32.0-36.0); MCV 92 fL (80-95); MPV 8.8 fL (8.0-11.0); Monocytes % 5.1 %; Neutrophils % 44.1 %; Platelet Count 366 10^3/uL (130-400); RBC 4.38 10^6/uL (3.93-5.22); RDW 12.5 % (11.7-14.6); RDW-SD 41.9 fL; WBC 12.24 10^3/uL (4.4-10.8)
[2023-12-13] MEDS: Pantoprazole 40 MG VIAL IVP (04:19)
[2023-12-13] MEDS: Normal Saline 1,000 ML 1000 ML IV (04:19)
[2023-12-13] MEDS: Normal Saline 50 ML 200 ML (04:20)
[2023-12-13] MEDS: ACETAMINOPHEN 1,000 MG/100 ML BTL 400 MG IVPB (04:20)
[2023-12-13] MEDS: Sucralfate 1 GM TAB PO (04:20)
[2023-12-13 04:26] LABS: ALT 19 U/L (14-59); AST 11 U/L (15-37); Albumin 3.6 g/dL (3.4-5.0); Alkaline Phosphatase 81 U/L (46-116); Anion Gap 6.9 mmol/L (3-11); BUN 10 mg/dL (7-18); Bilirubin, Total 0.28 mg/dL (0.2-1.0); CO2 30.1 mmol/L (21.0-32.0); CREATININE 0.7 mg/dL (0.55-1.02); Calcium 8.6 mg/dL (8.5-10.1); Chloride 104 mmol/L (98-107); Estimated GFR 126.11 (mL/min/1.73m2); Glucose 89 mg/dL (74-106); Potassium 3.7 mmol/L (3.5-5.1); Sodium 141 mmol/L (136-145); Troponin I 5 ng/L (<or=51)
[2023-12-13 04:36] LABS: Diff Comment Agrees w/ Instrument; RBC Morphology Normal
[2023-12-13] MEDS: Lactated Ringers 1,000 ML 1000 ML IV (05:19)
[2023-12-13 05:24] LABS: Troponin I 6 ng/L (<or=51)
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
--- NOTE | 2023-12-13 15:53 | NUR.NOTE ---
Nursing Note: Received call from pt wondering when she should start taking the prescribed Protonix. Pt was updated that she received in IVP this AM at 0400 and she can begin it tomorrow morning. PT verbalized understanding
--- NOTE | 2023-12-14 08:07 | NUR.NOTE ---
Nursing Note: Receive call from patient that she believes she's having an allergic reaction to a medication that was prescribed to her from this ER. Pt said her skin was red & itchy, as well as throat feels like it's closing. Pt was urged to receive emergent medical care, and to call an ambulance if she feels like her throat is closing. Pt verbalized understanding.
== END 2023-12-13 06:22 | disposition home or self-care (01) ==
PROVIDERS: Emergency Provider Student in an Organized Health Care Education/Training Program; PCP Nurse Practitioner Adult Health
DX: R07.89 Other chest pain (principal); Z86.711 Personal history of pulmonary embolism
CPT/HCPCS: 36415; 80053; 93005; 93308; 96361; 96365; 96375; 99284; 84484; 85025; 93010; J0131; J2470

== ENCOUNTER 2023-12-14 09:55 | Emergency (ER) | payer MEDICAID, SELFPAY ==
[2023-12-14 10:00] VITALS: BP 134/88; PULSE 66; RESP 18; TEMP 36.4; O2SAT 98
--- NOTE | 2023-12-14 10:00 | RT.EKG_ITS ---
APPROVED REPORT Exam: Resting ECG Reason for Exam: dizzy Patient Location: E HR:74 bpm ECG Measurements Heart Rate 74 AXIS ID 128 P 38 QRSd 92 QRS 50 QT 371 T 36 QTc 411 Conclusion Sinus rhythm...normal P axis, V-rate 60- 99
[2023-12-14] MEDS: Normal Saline 1,000 ML 1000 ML IV (10:15)
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
[2023-12-14] MEDS: LORazepam 2 MG/ML VIAL 1 MG IVP (10:50)
[2023-12-14 11:12] LABS: Anion Gap 11.7 mmol/L (3-11); BUN 9 mg/dL (7-18); CO2 24.3 mmol/L (21.0-32.0); CREATININE 0.6 mg/dL (0.55-1.02); Calcium 9.4 mg/dL (8.5-10.1); Chloride 103 mmol/L (98-107); Estimated GFR 130.88 (mL/min/1.73m2); Glucose 90 mg/dL (74-106); Magnesium 1.7 mg/dL (1.8-2.4); Potassium 3.7 mmol/L (3.5-5.1); Sodium 139 mmol/L (136-145)
[2023-12-14 11:16] VITALS: RESP 18
[2023-12-14 12:22] VITALS: BP 123/61; PULSE 88; RESP 14; O2SAT 95
== END 2023-12-14 12:24 | disposition home or self-care (01) ==
PROVIDERS: Emergency Provider Emergency Medicine; PCP Nurse Practitioner Adult Health
DX: R42 Dizziness and giddiness (principal); T47.1X5A Adverse effect of other antacids and anti-gastric-secretion drugs, initial encounter
CPT/HCPCS: 80048; 93005; 96361; 96374; 99284; 83735; 93010; 99283; J2060

== ENCOUNTER 2023-12-16 13:08 | Emergency (ER) | payer MEDICAID, SELFPAY ==
[2023-12-16 13:12] VITALS: BP 134/78; PULSE 71; RESP 18; O2SAT 99
--- NOTE | 2023-12-16 13:45 | RT.EKG_ITS ---
APPROVED REPORT Exam: Resting ECG Reason for Exam: chets pain Patient Location: E HR:73 bpm ECG Measurements Heart Rate 73 AXIS FL 116 P 49 QRSd 93 QRS 104 QT 374 T 61 QTc 412 Conclusion Sinus rhythm...normal P axis, V-rate 60- 99 Narrow complex normal sinus rhythm at a rate of 73. Right axis deviation. Short [place] interval. No ob vious delta wave. No ST segment abnormalities. Compared to prior dated several days ago axis has sh ifted slightly to the right. No acute injury pattern.
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
[2023-12-16 14:13] VITALS: TEMP 36.6
[2023-12-16] MEDS: Mylanta Suspension 30 ML CUP PO (14:23)
[2023-12-16] MEDS: Acetaminophen 500 MG TAB 1000 MG PO (14:23)
[2023-12-16] MEDS: Ibuprofen 600 MG TAB PO (14:23)
== END 2023-12-16 14:42 | disposition home or self-care (01) ==
PROVIDERS: Emergency Provider Emergency Medicine; PCP Nurse Practitioner Adult Health
DX: R09.A2 Foreign body sensation, throat (principal); R07.9 Chest pain, unspecified; Z86.711 Personal history of pulmonary embolism
CPT/HCPCS: 93005; 99283; 93010

== ENCOUNTER 2023-12-26 18:41 | Emergency (ER) | payer MEDICAID, SELFPAY ==
[2023-12-26] VITALS (17 sets, daily range): BP systolic 120–133; BP diastolic 73–81; PULSE 64–92; RESP 13–27; TEMP 36.8–37.1; O2SAT 97–100
--- NOTE | 2023-12-26 18:45 | RT.EKG_ITS ---
APPROVED REPORT Exam: Resting ECG Reason for Exam: Fainting. Patient Location: E HR:79 bpm ECG Measurements Heart Rate 79 AXIS IN 169 P 37 QRSd 102 QRS 40 QT 352 T 47 QTc 404 Conclusion Sinus rhythm...normal P axis, V-rate 60- 99 Physician: no stemi
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
[2023-12-26 20:18] LABS: Abs Immature Grans 0.02 10^3/uL (0.0-0.06); Absolute Basophil Count 0.05 10^3/uL (0.0-0.2); Absolute Eosinophil Count 0.14 10^3/uL (0.0-0.7); Absolute Lymphocyte Count 1.99 10^3/uL (1.2-3.4); Absolute Monocyte Count 0.45 10^3/uL (0.1-0.8); Absolute Neutrophil Count 5.67 10^3/uL (1.2-6.7); Basophils % 0.6 %; Eosinophils % 1.7 %; HCT 38.8 % (36.0-46.0); HGB 12.9 g/dL (11.2-15.7); Immature Grans % 0.2 %; Lymphocytes % 23.9 %; MCH 30.3 pg (27.0-33.0); MCHC 33.2 % (32.0-36.0); MCV 91 fL (80-95); MPV 8.6 fL (8.0-11.0); Monocytes % 5.4 %; Neutrophils % 68.2 %; Platelet Count 311 10^3/uL (130-400); RBC 4.26 10^6/uL (3.93-5.22); RDW 12.4 % (11.7-14.6); WBC 8.32 10^3/uL (4.4-10.8)
[2023-12-26] MEDS: Lactated Ringers 1,000 ML 1000 ML IV (20:18)
[2023-12-26 20:46] LABS: ALT 21 U/L (14-59); AST 15 U/L (15-37); Albumin 3.8 g/dL (3.4-5.0); Alkaline Phosphatase 69 U/L (46-116); Anion Gap 8.8 mmol/L (3-11); BUN 7 mg/dL (7-18); Bilirubin, Total 0.41 mg/dL (0.2-1.0); CO2 27.2 mmol/L (21.0-32.0); CREATININE 0.7 mg/dL (0.55-1.02); Calcium 8.8 mg/dL (8.5-10.1); Chloride 105 mmol/L (98-107); Estimated GFR 126.11 (mL/min/1.73m2); Glucose 81 mg/dL (74-106); Potassium 3.4 mmol/L (3.5-5.1); Sodium 141 mmol/L (136-145); TSH (W/Ref FT4) 1.86 uIU/mL (0.36-3.74); Total Protein 7.4 g/dL (6.4-8.2); Troponin I 4 ng/L (<or=51)
[2023-12-26 20:55] LABS: D-Dimer 451 ng/mlFEU (<500)
[2023-12-26 22:12] LABS: Troponin I < 4 ng/L (<or=51)
== END 2023-12-26 22:09 | disposition home or self-care (01) ==
PROVIDERS: Emergency Provider Student in an Organized Health Care Education/Training Program; PCP Nurse Practitioner Adult Health
DX: R53.1 Weakness (principal); E86.0 Dehydration; Z82.3 Family history of stroke
CPT/HCPCS: 80053; 81025; 93005; 96360; 99284; 83735; 84443; 84484; 85025; 85379; 93010; 99283

== ENCOUNTER 2024-01-06 09:35 | Emergency (ER) | payer MEDICAID, SELFPAY ==
--- NOTE | 2024-01-06 09:30 | RT.EKG_ITS ---
APPROVED REPORT Exam: Resting ECG Reason for Exam: Dizziness Patient Location: E HR:67 bpm ECG Measurements Heart Rate 67 AXIS AK 144 P 36 QRSd 100 QRS 62 QT 391 T 46 QTc 414 Conclusion Sinus rhythm, rate 67 No interval abnormalities, no STEMI
[2024-01-06 09:46] VITALS: BP 142/85; PULSE 65; RESP 12; TEMP 36.5; O2SAT 99
[2024-01-06] MEDS: Meclizine 25 MG TAB PO (10:17)
[2024-01-06 10:18] VITALS: RESP 16
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
[2024-01-06 11:49] VITALS: BP 136/65; PULSE 83; RESP 16; O2SAT 99
--- NOTE | 2024-01-07 12:25 | NUR.NOTE ---
Addendum entered by Maryjo Larson 01/07/24 12:49: Called in to [place], [place]. Test strips for one year, lancets for one year, glucometer. Pharmacist stated it would be a [employer]. Patient is aware. Original Note: Patient called asking for a home test glucometer to monitor her BGL during the day. Dr. Ortiz sent a prescription to the patient's pharmacy for one. Patient is aware. Nursing Note:
== END 2024-01-06 12:08 | disposition home or self-care (01) ==
PROVIDERS: Emergency Provider Physician Assistant; PCP Nurse Practitioner Adult Health
DX: R42 Dizziness and giddiness (principal); R00.2 Palpitations; R07.9 Chest pain, unspecified; Z86.11 Personal history of tuberculosis
CPT/HCPCS: 82962; 93005; 99284; 93010; 99283

== ENCOUNTER 2024-01-14 17:05 | Emergency (ER) | payer MEDICAID, SELFPAY ==
[2024-01-14] VITALS (27 sets, daily range): BP systolic 105–125; BP diastolic 42–84; PULSE 73–107; RESP 11–27; O2SAT 96–100
--- NOTE | 2024-01-14 17:15 | DI.CT_ITS ---
Exam(s) CT HEAD WO EXAM: CT HEAD WO CLINICAL HISTORY: seizure, L arm weakness. TECHNIQUE: Imaging Protocol: Axial computed tomography images with coronal and sagittal reformatted images were created and reviewed COMPARISON: No exams were available for comparison FINDINGS: Ventricles and Extra axial spaces: Normal in size and morphology for the patient's age. Hemorrhage: None. Cerebral parenchyma: Normal. Midline shift: None. Brainstem/Cerebellum: Normal. Calvarium: Normal. Visualized Paranasal sinuses/Mastoids: Clear. Soft Tissues: Unremarkable. IMPRESSION: No acute intracranial process. RADIATION DOSE DELIVERED: 883.29mGy.cm Total DLP DATA REPOSITORY: All CT scans at this facility are submitted to the National Radiology Data Registry (NRDR) Dose Index Registry (DIR) with the [employer] (A[employer]). RADIATION OPTIMIZATION: All CT scans at this facility use at least one of these dose optimization te chniques: automated exposure control; mA and/or kV adjustment per patient size (includes targeted exa ms where dose is matched to clinical indication); or iterative reconstruction.
--- NOTE | 2024-01-14 17:15 | RT.EKG_ITS ---
APPROVED REPORT Exam: Resting ECG Reason for Exam: syncope Patient Location: E HR:73 bpm ECG Measurements Heart Rate [address] 148 P 25 QRSd 99 QRS 62 QT 360 T 34 QTc 399 Conclusion Sinus arrhythmia...V-rate 62- 93, variation>10% Sinus rhythm normal axis normal intervals no acute ischemic changes
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
[2024-01-14 17:35] LABS: Abs Immature Grans 0.05 10^3/uL (0.0-0.06); HCT 40.8 % (36.0-46.0); HGB 13.5 g/dL (11.2-15.7); MCH 29.9 pg (27.0-33.0); MCHC 33.1 % (32.0-36.0); MCV 91 fL (80-95); MPV 8.8 fL (8.0-11.0); Platelet Count 356 10^3/uL (130-400); RBC 4.51 10^6/uL (3.93-5.22); RDW 12.1 % (11.7-14.6); RDW-SD 40.3 fL; WBC 14.64 10^3/uL (4.4-10.8)
[2024-01-14] MEDS: LORazepam 0.5 MG TAB PO (17:40)
[2024-01-14 17:50] LABS: Absolute Basophil Count 0.29 10^3/uL (0.0-0.2); Absolute Eosinophil Count 0.88 10^3/uL (0.0-0.7); Absolute Lymphocyte Count 3.95 10^3/uL (1.2-3.4); Absolute Monocyte Count 0.88 10^3/uL (0.1-0.8); Absolute Neutrophil Count 8.64 10^3/uL (1.2-6.7)
[2024-01-14 17:51] LABS: ALT 22 U/L (14-59); AST 24 U/L (15-37); Albumin 4.3 g/dL (3.4-5.0); Alkaline Phosphatase 80 U/L (46-116); Anion Gap 10.8 mmol/L (3-11); BUN 12 mg/dL (7-18); CO2 27.2 mmol/L (21.0-32.0); CREATININE 0.8 mg/dL (0.55-1.02); Calcium 9.4 mg/dL (8.5-10.1); Chloride 104 mmol/L (98-107); Diff Comment Manual Differential; Estimated GFR 107.44 (mL/min/1.73m2); Glucose 107 mg/dL (74-106); Magnesium 1.8 mg/dL (1.8-2.4); Potassium 3.7 mmol/L (3.5-5.1); RBC Morphology Normal; Sodium 142 mmol/L (136-145); Total Protein 8.2 g/dL (6.4-8.2)
[2024-01-14] MEDS: Famotidine 20 MG/2 ML VIAL IVP (18:30)
[2024-01-14] MEDS: ACETAMINOPHEN 1,000 MG/100 ML BAG 400 MG IVPB (18:40)
[2024-01-14 20:29] LABS: Bilirubin Negative (Negative); Blood Trace-intact (Negative); Clarity Clear (Clear); Glucose Negative (Negative); Ketones Negative (Negative); Leukocyte Esterase Negative (Negative); Nitrite Negative (Negative); Specific Gravity 1.015 (1.005-1.025); Urobilinogen 0.2 mg/dL (Up to 0.2)
[2024-01-14 20:30] LABS: Lactate 0.8 mmol/L (0.6-1.4)
[2024-01-14 20:35] LABS: Bacteria Rare HPF (Negative); C & S Indicated? No; Casts Negative LPF (Negative); Crystals Negative HPF (Negative); Epithelial Cells Moderate HPF (Negative); Mucus Negative (Negative); WBC 0-2 HPF (0-5)
== END 2024-01-14 21:03 | disposition home or self-care (01) ==
PROVIDERS: Emergency Provider Nurse Practitioner Family; PCP Nurse Practitioner Adult Health
DX: K08.499 Partial loss of teeth due to other specified cause, unspecified class (principal); R55 Syncope and collapse; Z86.711 Personal history of pulmonary embolism
CPT/HCPCS: 80053; 81025; 82962; 93005; 96365; 96375; 99285; 70450; 81003; 81015; 83605; 83735; 85025; 93010; 99284; J0131

== ENCOUNTER 2024-01-20 19:30 | Emergency (ER) | payer MEDICAID, SELFPAY ==
[2024-01-20] VITALS (18 sets, daily range): BP systolic 100–131; BP diastolic 33–76; PULSE 61–81; RESP 12–18; TEMP 36.6; O2SAT 96–99
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
[2024-01-20] MEDS: Normal Saline Flush 10 ML SYR IVP (20:12)
[2024-01-20] MEDS: LORazepam 2 MG/ML VIAL 1 MG IVP (20:12)
[2024-01-20 20:14] LABS: Abs Immature Grans 0.03 10^3/uL (0.0-0.06); Absolute Basophil Count 0.05 10^3/uL (0.0-0.2); Absolute Eosinophil Count 0.18 10^3/uL (0.0-0.7); Absolute Monocyte Count 0.57 10^3/uL (0.1-0.8); Absolute Neutrophil Count 5.88 10^3/uL (1.2-6.7); Basophils % 0.5 %; Eosinophils % 1.8 %; HCT 36.7 % (36.0-46.0); HGB 12.3 g/dL (11.2-15.7); Immature Grans % 0.3 %; Lymphocytes % 33.6 %; MCH 30.1 pg (27.0-33.0); MCHC 33.5 % (32.0-36.0); MCV 90 fL (80-95); MPV 8.4 fL (8.0-11.0); Monocytes % 5.6 %; Neutrophils % 58.2 %; Platelet Count 306 10^3/uL (130-400); RBC 4.09 10^6/uL (3.93-5.22); RDW 12.3 % (11.7-14.6); RDW-SD 40.3 fL; WBC 10.11 10^3/uL (4.4-10.8)
--- NOTE | 2024-01-20 20:15 | RT.EKG_ITS ---
APPROVED REPORT Exam: Resting ECG Reason for Exam: Chest pain Patient Location: E HR:72 bpm ECG Measurements Heart Rate [address] 133 P 34 QRSd 98 QRS 80 QT 364 T 49 QTc 399 Conclusion Sinus rhythm...normal P axis, V-rate 60- 99
[2024-01-20 20:33] LABS: ALT 20 U/L (14-59); AST 17 U/L (15-37); Alkaline Phosphatase 72 U/L (46-116); Anion Gap 8.8 mmol/L (3-11); BUN 8 mg/dL (7-18); Bilirubin, Total 0.58 mg/dL (0.2-1.0); CO2 24.2 mmol/L (21.0-32.0); CREATININE 0.7 mg/dL (0.55-1.02); Calcium 8.9 mg/dL (8.5-10.1); Chloride 109 mmol/L (98-107); Estimated GFR 126.11 (mL/min/1.73m2); Glucose 92 mg/dL (74-106); Magnesium 1.9 mg/dL (1.8-2.4); Potassium 3.9 mmol/L (3.5-5.1); Sodium 142 mmol/L (136-145); Total Protein 7.6 g/dL (6.4-8.2)
[2024-01-20 20:37] LABS: HCG Qual (Serum) Negative
--- NOTE | 2024-01-21 09:09 | NUR.NOTE ---
09 She was here last night because she passed out and she feels worse now. Feels dizzy, weak, and faint. Told her to return if she is feeling worse and have someone drive her if possible. Nursing Note:
== END 2024-01-20 21:16 | disposition home or self-care (01) ==
PROVIDERS: Emergency Provider Emergency Medicine; PCP Nurse Practitioner Adult Health
DX: R41.89 Other symptoms and signs involving cognitive functions and awareness (principal); R25.1 Tremor, unspecified
CPT/HCPCS: 36415; 80053; 82962; 93005; 99285; 83735; 84703; 85025; 93010; 99284; J2060

== ENCOUNTER 2024-01-31 02:48 | Outpatient (CLI) | payer MEDICAID, SELFPAY ==
--- NOTE | 2024-01-31 21:25 | PDOC.EEG ---
Neurology EEG EEG: [facility] Department of Neurology EEG REPORT Date of Recordin01/31/24 Interpreting Physician: Dr. Kalie Moraes PCP/Referring Provider: Ainsley Mendes NP Reason for study: Nazanin Ramirez is a 23 year old with a recent spell with LOC concerning for seizure. Current Medications: Home Medications ?Medication ?Instructions ?Recorded ?Confirmed ?Type inhalational spacing device ##2 08/09/18 01/20/24 Rx (Aerochamber Plus Flow-Vu) epinephrine 0.3 mg/0.3 mL 0.3 mg (0.3 mL) IM Q5-15M PRN 10/20/22 01/24/24 Rx injection, auto-injector (EpiPen) hypersensitivity reaction #2 ea fluticasone propionate 44 See Rx Instructions .Route 03/07/23 01/24/24 Rx mcg/actuation HFA aerosol inhaler .COMPLEX #10.6 grams (Flovent HFA) albuterol sulfate 90 mcg/actuation 1 - 2 puff inhalation Q4H PRN 05/04/23 01/24/24 Rx aerosol inhaler (Ventolin HFA) shortness of breath or wheezing #8.5 grams multivitamin 1 tab PO DAILY #90 tabs 05/04/23 01/24/24 Rx Nebulizer #1 ea 05/16/23 01/20/24 Rx ipratropium 0.5 mg-albuterol 3 mg 3 ml inhalation QID PRN asthma 05/16/23 01/24/24 Rx (2.5 mg base)/3 mL nebulization exacerbation #90 mL soln meclizine 25 mg tablet 25 mg PO DAILY PRN #7 tabs 01/06/24 01/24/24 Rx diabetic supplies, miscellan. #25 ea 01/07/24 01/20/24 Rx blood sugar diagnostic (OneTouch 01/20/24 01/20/24 History Ultra Test strips) blood-glucose meter (OneTouch 01/20/24 01/20/24 History Ultra2 Meter) lancets 33 gauge (OneTouch Delica 01/20/24 01/20/24 History Plus Lancet) omeprazole 40 mg capsule,delayed 40 mg PO DAILY 01/20/24 01/24/24 History release magnesium 200 mg tablet 400 mg (2 x 200 mg) PO DAILY #180 01/25/24 Rx tabs METHODS: A 21 channel digitized electroencephalogram was performed in the [facility] Clinical Neurophysiology Laboratory. The 10/20 international system of electrode placement was used and bipolar and referential electrode montages were recorded. In addition to EEG the patient was monitored for EKG and lateral/vertical eye movements. Activation procedures of photic stimulation and hyperventilation were performed if applicable. Video was used during activation procedures and during events where applicable. The duration of the recording was 30 minutes. DESCRIPTION OF EEG: The patient was noted to be awake, drowsy, and asleep during the recording. During maximal wakefulness a 10-Hz posterior background rhythm was present which was well-modulated, symmetrical, reactive to eye opening, and of moderate voltage. With eye opening the background activity changed to a low voltage mixture of alpha, beta, and occasional theta range frequencies. Faster frequencies were present in the bilateral anterior head regions. There was a normal anterior-posterior voltage gradient. During drowsiness, there was attenuation of the posterior dominant background rhythm and vertex waves. Stage II sleep was present with symmetrical sleep spindles, K-complexes, and vertex waves. Activating Procedures: Photic stimulation was performed which produced an asymmetrical posterior driving response at various flash frequencies in the right hemisphere only. Hyperventilation was performed with moderate effort and produced no physiological slowing of the background. EKG: EKG revealed normal sinus rhythm. INTERPRETATION: This EEG is abnormal due to an asymmetric posterior driving response in the right hemisphere only. There was no epileptiform activity. PRIOR EEG: none CLINICAL CORRELATION: The finding above could represent an area of focal cerebral dysfunction involving the left hemisphere. No definite epileptiform activity was present. Epilepsy remains a clinical diagnosis and a normal EEG does not rule out epilepsy. Clinical correlation is advised. Kalie Moraes MD Date of service: 01/31/24
== END 2024-01-31 02:49 | disposition home or self-care (01) ==
LOC: RT 02:48
PROVIDERS: PCP Nurse Practitioner Adult Health; Visit Provider Psychiatry & Neurology Neurology
DX: R40.4 Transient alteration of awareness (principal); R94.01 Abnormal electroencephalogram [EEG]
CPT/HCPCS: 95819

== ENCOUNTER 2024-02-03 11:21 | Emergency (ER) | payer MEDICAID, SELFPAY ==
[2024-02-03 11:22] VITALS: BP 138/86; PULSE 68; RESP 18; TEMP 36.4; O2SAT 98
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
[2024-02-03 11:50] VITALS: BP 132/82; PULSE 82; O2SAT 99
== END 2024-02-03 13:06 | disposition left against medical advice (07) ==
PROVIDERS: Emergency Provider Nurse Practitioner Family; PCP Nurse Practitioner Adult Health
DX: R07.9 Chest pain, unspecified (principal); R42 Dizziness and giddiness; F41.8 Other specified anxiety disorders; Z87.09 Personal history of other diseases of the respiratory system
CPT/HCPCS: 80053; 83690; 85027; 99281; 83735; 84484; 99283

== ENCOUNTER 2024-06-22 20:33 | Emergency (ER) | payer MEDICAID, SELFPAY ==
[2024-06-22 20:37] VITALS: BP 135/83; PULSE 78; RESP 16; TEMP 36.8; O2SAT 98
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
[2024-06-22] MEDS: Prochlorperazine 10 MG TAB PO (21:27)
== END 2024-06-22 21:32 | disposition home or self-care (01) ==
LOC: ER 22:17
PROVIDERS: Emergency Provider Emergency Medicine; PCP Nurse Practitioner Adult Health
DX: H53.9 Unspecified visual disturbance (principal); G43.109 Migraine with aura, not intractable, without status migrainosus
CPT/HCPCS: 82962; 99283

== ENCOUNTER 2024-06-26 11:52 | Emergency (ER) | payer MEDICAID, SELFPAY ==
--- NOTE | 2024-06-26 11:45 | RT.EKG_ITS ---
APPROVED REPORT Exam: Resting ECG Reason for Exam: Chest Pain Patient Location: E HR:72 bpm ECG Measurements Heart Rate 72 AXIS RI 123 P 52 QRSd 90 QRS 125 QT 382 T 61 QTc 419 Conclusion Sinus rhythm...normal P axis, V-rate 60- 99 Right axis deviation...QRS axis (111,269) No STEMI
[2024-06-26 11:53] VITALS: BP 115/62; PULSE 73; RESP 18; TEMP 36.8; O2SAT 98
[2024-06-26 13:12] VITALS: BP 122/78; PULSE 72; RESP 20; O2SAT 99
--- NOTE | 2024-06-26 13:15 | DI.RAD_ITS ---
Exam(s) XR CHEST 2V PA LATERAL EXAM: XR CHEST 2V PA LATERAL CLINICAL HISTORY: Left sided chest pain TECHNIQUE: 2D digital imaging was performed of the chest. Two images were obtained. PA and lateral views were obtained. COMPARISON: CR XR CHEST 2V PA LATERAL from 12/07/2023 FINDINGS: MEDIASTINUM: Normal. HEART: Normal. PULMONARY VASCULATURE: Normal. LUNGS: Clear. PLEURAL SPACE: No pleural effusion or pneumothorax. BONE:Within normal limits for the patient's age. OTHER FINDINGS:Normal. IMPRESSION: No acute pulmonary findings. DATA REPOSITORY: RADIATION DOSE DELIVERED:
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
[2024-06-26] MEDS: Acetaminophen 325 MG TAB 650 MG PO (13:36)
[2024-06-26 14:07] LABS: Troponin I 4 ng/L (<or=51)
[2024-06-26 14:38] VITALS: BP 115/76; PULSE 61; RESP 16; O2SAT 98
== END 2024-06-26 14:38 | disposition home or self-care (01) ==
PROVIDERS: Emergency Provider Registered Nurse Emergency; PCP Nurse Practitioner Adult Health
DX: R07.89 Other chest pain (principal); J45.909 Unspecified asthma, uncomplicated
CPT/HCPCS: 81025; 93005; 99284; 71046; 84484; 93010; 99283

== ENCOUNTER 2024-07-24 18:52 | Emergency (ER) | payer MEDICAID, SELFPAY ==
[2024-07-24 18:56] VITALS: BP 131/77; PULSE 80; RESP 20; TEMP 37.1; O2SAT 98
[2024-07-24] MEDS: Ondansetron O.D.T. 4 MG TABEF PO (19:12)
[2024-07-24 19:13] VITALS: RESP 18
[2024-07-24] MEDS: Dexamethasone 4 MG TAB PO (20:08)
[2024-07-24] MEDS: Ondansetron O.D.T. 4 MG TABEF (20:08)
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
--- NOTE | 2024-07-25 07:40 | NUR.NOTE ---
Accessed chart to get the discharge diagnosis for [facility] billing purposes aand print the facesheet. Nursing Note:
--- NOTE | 2024-07-25 09:18 | NUR.NOTE ---
Nursing Note:Pt called looking for restrictions for work. I spoke with the provider and she wrote a work note for the patient. Attempted to call the patient back but was unsuccessful. I will continue to attempt to call her and the work note has been left with access for the patient to come and pick it up when she is able to.
== END 2024-07-24 20:09 | disposition home or self-care (01) ==
PROVIDERS: Emergency Provider Physician Assistant; PCP Nurse Practitioner Adult Health
DX: M67.941 Unspecified disorder of synovium and tendon, right hand (principal); M25.531 Pain in right wrist; Y99.0 Civilian activity done for income or pay
CPT/HCPCS: 99283 ×2; J8540

== ENCOUNTER 2024-07-26 13:07 | Outpatient (CLI) | payer MEDICAID, SELFPAY ==
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
== END 2024-07-26 13:27 ==
LOC: DI 13:08
PROVIDERS: PCP Nurse Practitioner Adult Health; Visit Provider Nurse Practitioner Adult Health
DX: M79.641 Pain in right hand (principal); M25.531 Pain in right wrist
CPT/HCPCS: 73110

== ENCOUNTER 2024-07-28 22:09 | Emergency (ER) | payer MEDICAID, SELFPAY ==
[2024-07-28 22:22] VITALS: BP 129/82; PULSE 63; RESP 18; TEMP 37; O2SAT 97
[2024-07-28 22:25] VITALS: BP 129/82; PULSE 69; RESP 18; TEMP 37; O2SAT 97
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
[2024-07-28] MEDS: Albuterol/Ipratropium 3 ML UPD VIAL UPD (22:30)
[2024-07-28] MEDS: predniSONE 20 MG TAB 60 MG PO (22:32)
[2024-07-28 22:47] VITALS: BP 125/49; PULSE 66; RESP 18; O2SAT 18
== END 2024-07-28 22:48 | disposition home or self-care (01) ==
PROVIDERS: Emergency Provider Emergency Medicine; PCP Nurse Practitioner Adult Health
DX: J45.901 Unspecified asthma with (acute) exacerbation (principal)
CPT/HCPCS: 94640; 99283; J7512; J7620

== ENCOUNTER 2024-07-31 12:23 | Outpatient (CLI) | payer MEDICAID, SELFPAY ==
--- NOTE | 2024-07-31 12:15 | DI.RAD_ITS ---
Exam(s) XR CHEST 2V PA LATERAL EXAM: XR CHEST 2V PA LATERAL CLINICAL HISTORY: ? infiltrate,exac of asthma,j45.901. TECHNIQUE: 2D digital imaging was performed. COMPARISON: CR XR CHEST 2V PA LATERAL from 06/26/2024 FINDINGS: 2 views: Heart size is normal. The mediastinum is not widened. Lungs are clear. No infiltrates nor pleural effusions. IMPRESSION: No acute pulmonary findings. DATA REPOSITORY: RADIATION DOSE DELIVERED:
== END 2024-07-31 12:43 ==
LOC: DI 12:23
PROVIDERS: PCP Nurse Practitioner Adult Health; Visit Provider Family Medicine
DX: J45.901 Unspecified asthma with (acute) exacerbation (principal)
CPT/HCPCS: 71046

== ENCOUNTER 2024-07-31 12:38 | Outpatient (CLI) | payer MEDICAID, SELFPAY ==
[2024-07-31 12:58] LABS: Abs Immature Grans 0.05 10^3/uL (0.0-0.06); Absolute Basophil Count 0.05 10^3/uL (0.0-0.2); Absolute Eosinophil Count 0.09 10^3/uL (0.0-0.7); Absolute Lymphocyte Count 4.46 10^3/uL (1.2-3.4); Absolute Monocyte Count 0.57 10^3/uL (0.1-0.8); Absolute Neutrophil Count 7.38 10^3/uL (1.2-6.7); Basophils % 0.4 %; Eosinophils % 0.7 %; HCT 38.4 % (36.0-46.0); HGB 13.1 g/dL (11.2-15.7); Immature Grans % 0.4 %; Lymphocytes % 35.4 %; MCHC 34.1 % (32.0-36.0); MCV 88 fL (80-95); MPV 8.6 fL (8.0-11.0); Monocytes % 4.5 %; Neutrophils % 58.6 %; Platelet Count 312 10^3/uL (130-400); RBC 4.36 10^6/uL (3.93-5.22); RDW 12.9 % (11.7-14.6); RDW-SD 41.9 fL
[2024-07-31 13:23] LABS: D-Dimer 481 ng/mlFEU (<500)
== END 2024-07-31 12:39 | disposition home or self-care (01) ==
LOC: LBO 12:39
PROVIDERS: PCP Nurse Practitioner Adult Health; Visit Provider Family Medicine
DX: R06.00 Dyspnea, unspecified (principal); J45.901 Unspecified asthma with (acute) exacerbation
CPT/HCPCS: 36415; 85025; 85379

== ENCOUNTER 2024-08-01 06:49 | Emergency (ER) | payer MEDICAID, SELFPAY ==
[2024-08-01] VITALS (19 sets, daily range): BP systolic 111–118; BP diastolic 55–70; PULSE 55–81; RESP 15–17; TEMP 36.1–36.7; O2SAT 94–99
--- NOTE | 2024-08-01 07:00 | DI.CT_ITS ---
Exam(s) CT CHEST PE CTA EXAM: CT CHEST PE CTA CLINICAL HISTORY: dyspnea. TECHNIQUE: Imaging Protocol: Axial CT angiography was performed with multi-slice acquisition and mu lti-planar reconstructions as well as axial, coronal and sagittal MIP reconstructions. Computer aided detection (CAD) was utilized. CONTRAST MATERIAL: Intravenous: Omnipaque 350 Contrast volume:75 ml COMPARISON: CT CT CHEST PE CTA from 09/25/2022 CR XR CHEST 2V PA LATERAL from 07/31/2024 FINDINGS: Pulmonary Arteries: No evidence of filling defect to suggest pulmonary emboli. Mediastinum and [place]: No dominant adenopathy or fluid collection. Pulmonary parenchyma: Expiratory changes. Atelectasis at the medial right middle lobe. No consolida tion or dominant measurable mass. Pleura: No effusion or pneumothorax. Heart: The heart is not dilated. No coronary artery calcifications are seen. Aorta: Thoracic aorta non-dilated. No dissection. Upper abdomen: No acute findings. Bones: Unremarkable for age. Tubes, Catheters, and Lines: None Soft tissues: Unremarkable. IMPRESSION: No evidence of pulmonary embolism. Atelectasis medial right middle lobe. RADIATION DOSE DELIVERED: 130.02mGy.cm Total DLP DATA REPOSITORY: All CT scans at this facility are submitted to the National Radiology Data Registry (NRDR) Dose Index Registry (DIR) with the [employer] ([employer]). RADIATION OPTIMIZATION: All CT scans at this facility use at least one of these dose optimization te chniques: automated exposure control; mA and/or kV adjustment per patient size (includes targeted exa ms where dose is matched to clinical indication); or iterative reconstruction.
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
[2024-08-01] MEDS: Albuterol/Ipratropium 3 ML UPD VIAL UPD (07:21)
[2024-08-01] MEDS: diphenhydrAMINE 50 MG/ML VIAL IVP (07:21)
[2024-08-01 07:28] LABS: BE (Venous) 1 mmol/L (-2-3); HCO3 (Venous) 24 mmol/L (23-28); O2 Sat (Venous) 82 %; TCO2 (Venous) 22 mmol/L (24-29); pCO2 (Venous) 31 mmHg (41-51); pO2 (Venous) 43 mmHg
[2024-08-01 07:29] LABS: Abs Immature Grans 0.05 10^3/uL (0.0-0.06); Absolute Basophil Count 0.08 10^3/uL (0.0-0.2); Absolute Eosinophil Count 0.45 10^3/uL (0.0-0.7); Absolute Lymphocyte Count 3.45 10^3/uL (1.2-3.4); Absolute Monocyte Count 0.71 10^3/uL (0.1-0.8); Basophils % 0.6 %; Eosinophils % 3.4 %; HCT 38.2 % (36.0-46.0); HGB 13.2 g/dL (11.2-15.7); Immature Grans % 0.4 %; Lymphocytes % 25.8 %; MCH 30.3 pg (27.0-33.0); MCHC 34.6 % (32.0-36.0); MCV 88 fL (80-95); MPV 8.6 fL (8.0-11.0); Monocytes % 5.3 %; Neutrophils % 64.5 %; Platelet Count 322 10^3/uL (130-400); RBC 4.36 10^6/uL (3.93-5.22); RDW 12.8 % (11.7-14.6); WBC 13.38 10^3/uL (4.4-10.8)
[2024-08-01 07:30] LABS: Absolute Neutrophil Count 8.63 10^3/uL (1.2-6.7)
[2024-08-01 07:53] LABS: ALT 16 U/L (14-59); AST 12 U/L (15-37); Albumin 3.8 g/dL (3.4-5.0); Alkaline Phosphatase 70 U/L (46-116); Anion Gap 9.3 mmol/L (3-11); BUN 11 mg/dL (7-18); CO2 24.7 mmol/L (21.0-32.0); CREATININE 0.7 mg/dL (0.55-1.02); Calcium 8.7 mg/dL (8.5-10.1); Chloride 106 mmol/L (98-107); Estimated GFR 125.33 (mL/min/1.73m2); Glucose 92 mg/dL (74-106); Potassium 3.3 mmol/L (3.5-5.1); Sodium 140 mmol/L (136-145); Total Protein 7.1 g/dL (6.4-8.2); Troponin I 5 ng/L (<or=51)
[2024-08-01 08:07] LABS: COVID-19 PCR Negative (Negative); Influenza A PCR Negative (Negative); Influenza B PCR Negative (Negative); RSV PCR Negative (Negative)
[2024-08-01 08:09] LABS: Source Nasopharynx
[2024-08-01] MEDS: Normal Saline - Diluent 50 ML VIAL IJ (08:44)
[2024-08-01] MEDS: Omnipaque 350 MG/ML 100 ML BTL 75 ML IJ (08:46)
== END 2024-08-01 09:57 | disposition home or self-care (01) ==
PROVIDERS: Emergency Provider Emergency Medicine; PCP Nurse Practitioner Adult Health
DX: R06.02 Shortness of breath (principal)
CPT/HCPCS: 99285; 99284; 94640; 96374; 71275; 80053; 82805; 87637; 84484; 85025; J1200; J3490; J7620

== ENCOUNTER 2024-11-05 19:31 | Emergency (ER) | payer MEDICAID, SELFPAY ==
[2024-11-05 19:35] VITALS: BP 141/75; PULSE 78; RESP 18; TEMP 36.9; O2SAT 96
--- NOTE | 2024-11-05 19:45 | DI.CT_ITS ---
Exam(s) CT ABDOMEN PELVIS W EXAM: CT ABDOMEN PELVIS W CLINICAL HISTORY: left upper quadrant abdominal pain. TECHNIQUE: Imaging Protocol: Axial computed tomography images with coronal and sagittal reformatted images were created and reviewed CONTRAST MATERIAL: Intravenous: Omnipaque 350 Contrast volume:75 ml Oral: no COMPARISON: CT CT ABD/PELVIS WO CONTRAST from 09/18/[address] CHEST PE CTA from 09/25/2022 FINDINGS: ABDOMEN and PELVIS: Lung Bases: No acute findings. Liver: Normal density. No suspicious mass. Gallbladder and biliary tract: No radiodense calculus. No wall thickening or pericholecystic fluid. No biliary dilation. Pancreas: Normal density. No abnormal calcifications or inflammatory process. No evidence of mass. Spleen: Normal. Kidneys: Normal size, contour and axis. No radiodense stones. No obstructive uropathy. No suspicious masses seen. Adrenal glands: No masses seen. Vasculature: Abdominal aorta non-dilated. Soft tissues: Small fat containing umbilical hernia. Bladder: Nearly empty. Not well evaluated. Bowel: No obstruction. No bowel wall thickening. Appendix normal. Peritoneal cavity: No ascites. No focal collection. No mesenteric inflammatory response. No free air. Bones: Unremarkable for age. Reproductive organs: Unremarkable. Lymph nodes: No pathologically enlarged lymph nodes. IMPRESSION:: No acute abnormality in the abdomen or pelvis. The preliminary [facility] report was reviewed. RADIATION DOSE DELIVERED: 496.52mGy.cm Total DLP DATA REPOSITORY: All CT scans at this facility are submitted to the National Radiology Data Registry (NRDR) Dose Index Registry (DIR) with the [employer] (A[employer]). RADIATION OPTIMIZATION: All CT scans at this facility use at least one of these dose optimization techniques: automated exposure control; mA and/or kV adjustment per patient size (includes targeted exams where dose is matched to clinical indication); or iterative reconstruction.
--- NOTE | 2024-11-05 19:48 | DI.RAD_ITS ---
Exam(s) XR CHEST 2V PA LATERAL EXAM: XR CHEST 2V PA LATERAL CLINICAL HISTORY: lateral left sided chest pain TECHNIQUE: 2D digital imaging was performed. Two views. COMPARISON: CT CT CHEST PE CTA from 08/01/2024 FINDINGS: HEART: Normal size. Aorta: Not dilated. PULMONARY VASCULATURE: Normal. MEDIASTINUM: Unremarkable. LUNGS: Clear. PLEURAL SPACE: No pleural effusion or pneumothorax. BONE:Unremarkable for age. SOFT TISSUES: Unremarkable. IMPRESSION: No acute abnormality. The preliminary [facility] report was reviewed. DATA REPOSITORY: RADIATION DOSE DELIVERED:
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
[2024-11-05 20:02] LABS: Abs Immature Grans 0.04 10^3/uL (0.0-0.06); HCT 37.2 % (36.0-46.0); HGB 12.5 g/dL (11.2-15.7); Immature Grans % 0.4 %; MCH 30.0 pg (27.0-33.0); MCHC 33.6 % (32.0-36.0); MCV 89 fL (80-95); MPV 8.8 fL (8.0-11.0); Platelet Count 320 10^3/uL (130-400); RBC 4.16 10^6/uL (3.93-5.22); RDW 12.1 % (11.7-14.6); RDW-SD 39.3 fL; WBC 10.10 10^3/uL (4.4-10.8)
[2024-11-05] MEDS: Normal Saline 1,000 ML 1000 ML IV (20:05)
[2024-11-05] MEDS: Ondansetron 4 MG/2 ML VIAL IVP (20:06)
[2024-11-05] MEDS: methylPREDNISolone SUCC 125 MG VIAL IVP (20:08)
[2024-11-05] MEDS: Ketorolac 15 MG/ML VIAL IVP (20:08)
[2024-11-05] MEDS: diphenhydrAMINE 50 MG/ML VIAL IVP (20:11)
[2024-11-05 20:17] LABS: HCG Qual (Serum) Negative
[2024-11-05 20:20] LABS: ALT 21 U/L (14-59); AST 14 U/L (15-37); Albumin 3.9 g/dL (3.4-5.0); Alkaline Phosphatase 65 U/L (46-116); Anion Gap 10.1 mmol/L (3-11); BUN 10 mg/dL (7-18); Bilirubin, Total 0.2 mg/dL (0.2-1.0); CO2 26.9 mmol/L (21.0-32.0); Calcium 8.9 mg/dL (8.5-10.1); Chloride 105 mmol/L (98-107); Estimated GFR 130.07 (mL/min/1.73m2); Glucose 97 mg/dL (74-106); Lipase 43 U/L (<78); Magnesium 1.8 mg/dL (1.8-2.4); Potassium 4.0 mmol/L (3.5-5.1); Sodium 142 mmol/L (136-145); Total Protein 7.4 g/dL (6.4-8.2)
[2024-11-05] MEDS: Omnipaque 350 MG/ML 100 ML BTL IJ (20:49)
[2024-11-05] MEDS: Normal Saline Flush 10 ML SYR IVP (20:50)
[2024-11-05] MEDS: Normal Saline - Diluent 50 ML VIAL IJ (20:51)
[2024-11-05 21:06] LABS: Glucose Negative (Negative)
--- NOTE | 2024-11-05 21:25 | DI.VRAD_ITS ---
PROCEDURE INFORMATION: Exam: CT Abdomen And Pelvis With Contrast Exam date and time: 11/05/2024 8:55 PM Age: 24 years old Clinical indication: Other: Left upper quadrant abdominal pain TECHNIQUE: Imaging protocol: Computed tomography of the abdomen and pelvis with contrast. Contrast material: OMNI 350; Contrast volume: 75 ml; Contrast route: INTRAVENOUS (IV); COMPARISON: CT ABD/PELVIS WO CONTRAST 09/18/2022 8:48 PM FINDINGS: Lungs: Lung bases clear. Liver: Normal appearing liver. Gallbladder and biliary ducts: Gallbladder partially collapsed. No calcified gallstones seen. No biliary dilatation. Pancreas: Normal appearing pancreas. Spleen: Normal appearing spleen. Adrenal glands: Normal appearing adrenal glands. Kidneys and ureters: Normal appearing kidneys. No hydronephrosis. Stomach and bowel: Stomach partially distended with fluid and ingested material. No small bowel dilatation to suggest obstruction. Normal-appearing colon. No evidence of diverticulitis or colitis. Appendix: Appendix partially obscured but normal in caliber and appearance through its visualized portion. Intraperitoneal space: Probable trace fluid in the deep pelvis, nonspecific. No free air. Vasculature: Normal caliber abdominal aorta. Lymph nodes: No pathologically enlarged mesenteric, retroperitoneal, or pelvic sidewall lymph nodes. Urinary bladder: Urinary bladder collapsed and not well evaluated but grossly unremarkable, as seen. Reproductive: Anteverted uterus, normal in size. Normal-appearing left ovary. Right ovary partially obscured but grossly unremarkable, as seen. Bones/joints: No acute fracture seen among the bones of the abdomen or pelvis. Soft tissues: Small fat containing ventral hernia at the umbilicus. IMPRESSION: No acute bowel pathology demonstrated. Dictated and Authenticated by: Cade Jose MD. Orderin Jayden Cyr MD
--- NOTE | 2024-11-05 21:25 | DI.VRAD_ITS ---
PROCEDURE INFORMATION: Exam: XR Chest Exam date and time: 11/05/2024 9:11 PM Age: 24 years old Clinical indication: Left-sided; L lat chest pain TECHNIQUE: Imaging protocol: Radiologic exam of the chest. Views: 2 views. COMPARISON: CT CHEST PE CTA 08/01/2024 8:40 AM FINDINGS: Lungs: No pulmonary consolidation is seen. Pleural spaces: No pleural effusion or pneumothorax is demonstrated. Heart/Mediastinum: The heart appears normal in size. Bones/joints: The visualized bony structures appear grossly intact. IMPRESSION: No active disease is seen in the chest. Dictated and Authenticated by: Cade Jose MD. Orderin Jayden Cyr MD
[2024-11-05 21:39] VITALS: BP 120/70; PULSE 60; RESP 16; O2SAT 96
[2024-11-05 22:11] VITALS: BP 115/65; PULSE 62; RESP 22; TEMP 36.7; O2SAT 97
== END 2024-11-05 22:11 | disposition home or self-care (01) ==
PROVIDERS: Emergency Provider Emergency Medicine; PCP Nurse Practitioner Adult Health
DX: R10.12 Left upper quadrant pain (principal); R11.0 Nausea; R07.89 Other chest pain
CPT/HCPCS: 80053; 83690; 96361; 96374; 96375; 99285; 71046; 74177; 81003; 83735; 84703; 85025; 99284; J1200; J1885; J2405; J2919; J3490

== ENCOUNTER 2024-11-07 10:06 | Emergency (ER) | payer MEDICAID, SELFPAY ==
[2024-11-07 10:13] VITALS: BP 135/74; PULSE 71; RESP 16; TEMP 37.1; O2SAT 97
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
[2024-11-07] MEDS: diphenhydrAMINE 25 MG CAP PO (11:43)
[2024-11-07 11:58] LABS: Abs Immature Grans 0.03 10^3/uL (0.0-0.06); HCT 36.9 % (36.0-46.0); HGB 12.0 g/dL (11.2-15.7); Immature Grans % 0.3 %; MCH 29.7 pg (27.0-33.0); MCHC 32.5 % (32.0-36.0); MCV 91 fL (80-95); MPV 8.7 fL (8.0-11.0); Platelet Count 315 10^3/uL (130-400); RBC 4.04 10^6/uL (3.93-5.22); RDW 12.5 % (11.7-14.6); RDW-SD 41.5 fL; WBC 11.62 10^3/uL (4.4-10.8)
[2024-11-07 11:59] LABS: ESR 5 mm/hr (0-20)
--- NOTE | 2024-11-07 12:15 | DI.US_ITS ---
Exam(s) US SOFT TISSUE HEAD OR NECK EXAM: US SOFT TISSUE HEAD OR NECK CLINICAL HISTORY: right side neck, pain, enlarged nodes. TECHNIQUE: Ultrasound was performed using standard protocol. COMPARISON: No exams were available for comparison FINDINGS: Sonographic assessment utilizing grayscale and color Doppler imaging was performed and targeted to the area of clinical concern. No suspicious cystic or solid masses are seen in the right neck. No edema is seen in the soft tissues. No focal fluid collection is seen to suggest an abscess. There are sonographically benign-appearing lymph nodes noted. There is a 0.6 x 0.2 x 0.5 cm sonographically benign-appearing lymph node in the right neck corresponding to the palpable abnormality. IMPRESSION: No suspicious cystic or solid masses are seen in the right neck. DATA REPOSITORY:
[2024-11-07 12:19] LABS: ALT 17 U/L (14-59); AST 14 U/L (15-37); Albumin 3.8 g/dL (3.4-5.0); Alkaline Phosphatase 62 U/L (46-116); Anion Gap 8.1 mmol/L (3-11); BUN 10 mg/dL (7-18); Bilirubin, Total 0.3 mg/dL (0.2-1.0); CO2 27.9 mmol/L (21.0-32.0); Calcium 8.6 mg/dL (8.5-10.1); Chloride 107 mmol/L (98-107); Estimated GFR 130.07 (mL/min/1.73m2); Glucose 90 mg/dL (74-106); Potassium 3.7 mmol/L (3.5-5.1); Sodium 143 mmol/L (136-145); Total Protein 7.1 g/dL (6.4-8.2)
[2024-11-07 12:21] LABS: C-Reactive Protein < 0.50 mg/dL (<or=0.5)
[2024-11-07] MEDS: Ondansetron O.D.T. 4 MG TABEF PO (13:14)
[2024-11-07 13:16] VITALS: BP 118/62; PULSE 56; RESP 16; O2SAT 99
== END 2024-11-07 13:40 | disposition home or self-care (01) ==
PROVIDERS: Emergency Provider Physician Assistant; PCP Nurse Practitioner Adult Health
DX: M43.6 Torticollis; M54.2 Cervicalgia; R59.0 Localized enlarged lymph nodes
CPT/HCPCS: 99283; 99284; 36415; 76536; 80053; 85652; 85025; 86140